=== PATIENT | male | born 1945 | race Caucasian/White ===

== ENCOUNTER → 2020-05-18 14:01 | Outpatient (BNVA) | payer MEDICARE, SELFPAY | PROVIDERS: PCP Internal Medicine; Referring Provider Internal Medicine; Visit Provider Internal Medicine | DX: J44.9 Chronic obstructive pulmonary disease, unspecified (principal); R63.5 Abnormal weight gain; R06.89 Other abnormalities of breathing; Z79.899 Other long term (current) drug therapy | CPT/HCPCS: 99213 ==

== ENCOUNTER 2020-06-04 16:56 | Inpatient (IN) | payer MEDICARE, SELFPAY ==
--- NOTE | 2020-06-04 17:02 | ECG_ITS ---
Test Reason : SOB Blood Pressure : / mmHG Vent. Rate : 085 BPM Atrial Rate : 085 BPM P-R Int : 134 ms QRS Dur : 092 ms QT Int : 388 ms P-R-T Axes : 046 003 023 degrees QTc Int : 461 ms Normal sinus rhythm Left axis deviation Otherwise normal ECG No significant changes seen Referred By: Yosef Maxwell Electronically Signed By:DIEGO MERCADO MD
--- NOTE | 2020-06-04 17:05 | XR_ITS ---
EXAMINATION: XR CHEST CLINICAL INFORMATION: Shortness of breath COMPARISON: 10/13/2016 TECHNIQUE: Frontal view of the chest was obtained. FINDINGS: There are new diffuse pulmonary infiltrates present right significantly greater than left. Findings are consistent with multifocal pneumonia. The heart size is mildly enlarged. No pleural effusions are seen. No gross CHF. XR/XR chest 1V IMPRESSION: Multifocal pneumonia, right greater than left
--- NOTE | 2020-06-04 17:11 | ED.SOB ---
HPI - SOB/Dyspnea General Chief Complaint: Dyspnea Stated Complaint: shortness of breath Time Seen by Provider: 06/04/20 17:02 Source: EMS Mode of arrival: EMS Limitations: no limitations History of Present Illness HPI Narrative: Pleasant 74-year-old male with past medical history significant for asthma / COPD /hypoventilation and not on home O2 history of intubation the past presenting via EMS with complaint of shortness of breath for past couple of days onset after a mild cold and has symptoms have been progressively getting worse. Patient upon arrival pulse ox with good plan of 42% on room air. Has shortness of breath. MD elicited complaint: shortness of breath Pertinent past history: COPD and asthma Onset (ago): day(s) Context: recent illness Timing: constant Severity: severe Exacerbating factors: nothing Relieving factors: nothing Known history of: COPD and asthma Treatment prior to arrival: none Related Data Home Medications Medication Instructions Recorded Confirmed albuterol sulfate 2.5 mg INHALATION Q4-6H PRN 05/18/20 06/04/20 enalapril maleate 10 mg tablet 10 mg PO DAILY 05/18/20 06/04/20 fluticasone 500 mcg-salmeterol 50 1 inh INHALATION BID 05/18/20 06/04/20 mcg/dose blistr powdr for inhalation theophylline 300 mg 300 mg PO Q12H cap 05/18/20 06/04/20 capsule,extended release 24 hr Allergies Allergy/AdvReac Type Severity Reaction Status Date / Time No Known Allergies Allergy Verified 06/04/20 17:24 Review of Systems Review of Systems: Constitutional: No Weight loss, No Fever, + Chills, No Night Sweats, No Fatigue, No Malaise ENT/Mouth: No Hearing loss, No Ear Pain, + Nasal Congestion, No Sinus Pain, No Hoarseness, No sore throat, + Rhinorrhea, No Swallowing Difficulty Eyes: No Eye Pain, No Swelling, No Redness, No Foreign Body, No Discharge, No Vision Changes Cardiovascular: No Chest Pain, + SOB, + Dyspnea on Exertion, No Orthopnea, No Edema, No Palpitations Respiratory: + Cough, No Sputum, + Wheezing, No Smoke Exposure, No Dyspnea Gastrointestinal: No Nausea, No Vomiting, No Diarrhea, No Constipation, No abdominal Pain, No Hematochezia, No Melena Genitourinary: no irregular bleeding, No Dysuria, No Urinary Frequency, No Hematuria, No Urinary Incontinence, No Urgency, No Flank Pain, No Urinary Flow Changes, No Hesitancy Musculoskeletal: No joint pain, No Myalgias, No Joint Swelling Skin: No Skin Lesions, No rash Neuro: No Weakness, No Numbness, No Paresthesias, No Loss of Consciousness, No Dizziness, No Headache Psych: No Anxiety/Panic, No Social Issues Heme/Lymph: No Bruising, No Bleeding,No Lymphadenopathy Endocrine: No Polyuria, No Polydipsia, No Temperature Intolerance Yes all other systems are reviewed and are negative [facility] Past Medical History Attestation statement: The following information was validated with the patient. Medical History (Updated 06/04/20 @ 19:52 by Yosef Maxwell NP) COPD (chronic obstructive pulmonary disease) Hypoventilation Social History Social History Alcohol intake: never Smoked in Last 30 Days: No Use of substances other than those prescribed or required for medical reasons: No Advance Directives: No Advance Directives Information Provided: Yes Physical Exam Vital Signs: Vital Signs: Vital Signs Temp Pulse Resp BP Pulse Ox 06/04/20 19:32 99.6 F 76 24 H 122/57 L 94 06/04/20 17:48 88 24 H 139/63 95 06/04/20 17:21 100.9 F H 86 24 H 98 Body Mass Index 28.2 Reviewed Const: General: acute distress (Resp ) Nutritional Appearance: average body habitus Orientation/consciousness: patient oriented x3 HENMT: Head: Yes normal to inspection Ears: hearing grossly normal bilaterally Eyes: General: appearance normal, both eyes and all related structures Visual Rendon: normal visual rendon by confrontation Neck: Neck: Yes normal visual inspection, No positive Brudzinski's sign, No positive Kernig's sign and No tender Thyroid: Thyroid normal Chest: Chest palpation & inspection: normal inspection of the chest Resp: Effort & Inspection: respiratory distress ( Decreased breath sounds diffusely) Auscultation: wheezes Cardio: Jugular venous distension: no JVD GI: Inspection: Yes normal to inspection Percussion: Yes normal to percussion Auscultation: normal bowel sounds : General: Yes no CVA tenderness Back/Spine/Pelvis: Back: no CVA tenderness Skin: General skin exam: no rashes or lesions noted Neuro: General: patient oriented x3 Extrem: General: Yes normal to inspection Course Course Course Narrative: 1701 call O2 bedside upon EMS arrival patient pulse ox 46% on room air states was having slight difficulty breathing visually does not appear in any acute distress. Patient medially placed on non-rebreather will to pulse oximeter reading 100% now. RT page. Moved to isolation room concern for COVID-19. At this time will go ahead and treat with MDI, IV Solu-Medrol and gradual fluids will check labs including lactic acid, blood cultures, cardiac enzymes, EKG chest x-ray. Sepsis screening done does have history of COPD. 1715 Lab/blood cultures done. RT at bedside Empiric dose of Levaquin. Resting comfortably speaking in full sentences this time. 1830 + COVID, CXR multifocal infiltrate. Resting comfortably. 1840 Has been resting comfortably, 99-100% on non-rebreather, attempted Venti mask does drop to 89-90%. He reports he feels comfortable no excessive work of breathing. respiratory rate 20 2-24. Case discussed with ICU clint Elizalde for tele. Page placed to Hospitalist. [address] Carmichael Hospitalist for admit. MDM - SOB/Dyspnea Medical Records Attestation: I reviewed the patient's medical records. Medical records narrative: outpatient visit note from 05/16/2020 Lab Data Attestation: I reviewed the patient's lab results. Result diagrams: 06/04/20 17:18 06/04/20 17:18 Labs: Lab Results 06/04/20 06/04/20 06/04/20 Range/Units 17:18 17:18 17:18 WBC 12.2 H (4.8-10.8) X10*3/uL RBC 4.34 L (4.60-5.80) X10*6/uL Hgb 12.9 L (14.0-18.0) g/dl Hct 39.8 L (42-52) % MCV 91.7 (80-98) fL MCH 29.7 (27.0-33.0) pg MCHC 32.4 (31.0-36.0) g/dl RDW 13.0 (11.0-16.0) % Plt Count 312 (160-400) X10*3/uL MPV 11.8 (9.4-12.4) fL Immature Gran % (Auto) 2.2 H (0.0-0.4) % Neut % (Auto) 89.7 H (45-73) % Lymph % (Auto) 5.1 L (20-40) % Walsh % (Auto) 2.8 (2-11) % Eos % (Auto) 0.0 (0-4) % Baso % (Auto) 0.2 (0-2) % Lymph # (Auto) 0.6 L (1.2-4.9) X10*3/uL Walsh # (Auto) 0.3 (0.1-1.2) X10*3/uL Eos # (Auto) 0.0 (0.0-0.4) X10*3/uL Baso # (Auto) 0.0 (0.0-0.2) X10*3/uL Abs Immat Gran (auto) 0.27 H (0.00-0.03) X10*3/uL Absolute Neuts (auto) 10.9 H (2.0-8.3) X10*3/uL Absolute Nucleated RBC 0.000 (0.0-0.012) X10*3/uL Nucleated RBC % (auto) 0.0 (0.0-0.2) /100WBC Smear Tech's Comments VERIFIED PT 17.5 H (10.8-13.0) SEC INR 1.5 H (0.9-1.1) APTT 33.4 (24.1-38.0) SEC D-Dimer 2600 NG/ML ABG pH (7.35-7.45) ABG pCO2 (32-45) mmhg ABG pO2 (83-108) mmhg ABG HCO3 (22-26) mmol/l ABG O2 Saturation % ABG Base Excess Oxygen Given Sodium 136 (135-145) mmol/L Potassium 4.4 (3.3-5.1) mmol/l Chloride 99 (96-108) mmol/L Carbon Dioxide 25 (22-29) mmol/L Anion Gap 16 (12-20) BUN 39 H (9-16) mg/dL Creatinine 1.22 (0.5-1.4) mg/dL Estim Creat Clear Calc 50.0 Estimated GFR 58 Random Glucose 223 H (60-115) mg/dL Lactic Acid (0.5-2.0) mmol/L Lactic Acid Fup @ 2Hr (0.5-2.0) mmol/L Calcium 7.5 L (8.4-10.2) mg/dL Total Bilirubin 0.9 (0.0-1.0) mg/dL AST 24 (5-37) U/L ALT 19 (0-40) U/L Alkaline Phosphatase 100 (39-117) U/L Lactate Dehydrogenase 498 H (118-273) U/L Troponin I High Sens (<3.5-35.0) ng/L B-Natriuretic Peptide (<100) pg/mL Total Protein 6.4 L (6.5-8.0) g/dL Albumin 3.3 L (3.5-5.0) g/dL Procalcitonin ng/mL Coronavirus (PCR) (Negative) 06/04/20 06/04/20 06/04/20 Range/Units 17:18 17:18 17:18 WBC (4.8-10.8) X10*3/uL RBC (4.60-5.80) X10*6/uL Hgb (14.0-18.0) g/dl Hct (42-52) % MCV (80-98) fL MCH (27.0-33.0) pg MCHC (31.0-36.0) g/dl RDW (11.0-16.0) % Plt Count (160-400) X10*3/uL MPV (9.4-12.4) fL Immature Gran % (Auto) (0.0-0.4) % Neut % (Auto) (45-73) % Lymph % (Auto) (20-40) % Walsh % (Auto) (2-11) % Eos % (Auto) (0-4) % Baso % (Auto) (0-2) % Lymph # (Auto) (1.2-4.9) X10*3/uL Walsh # (Auto) (0.1-1.2) X10*3/uL Eos # (Auto) (0.0-0.4) X10*3/uL Baso # (Auto) (0.0-0.2) X10*3/uL Abs Immat Gran (auto) (0.00-0.03) X10*3/uL Absolute Neuts (auto) (2.0-8.3) X10*3/uL Absolute Nucleated RBC (0.0-0.012) X10*3/uL Nucleated RBC % (auto) (0.0-0.2) /100WBC Smear Tech's Comments PT (10.8-13.0) SEC INR (0.9-1.1) APTT (24.1-38.0) SEC D-Dimer NG/ML ABG pH (7.35-7.45) ABG pCO2 (32-45) mmhg ABG pO2 (83-108) mmhg ABG HCO3 (22-26) mmol/l ABG O2 Saturation % ABG Base Excess Oxygen Given Sodium (135-145) mmol/L Potassium (3.3-5.1) mmol/l Chloride (96-108) mmol/L Carbon Dioxide (22-29) mmol/L Anion Gap (12-20) BUN (9-16) mg/dL Creatinine (0.5-1.4) mg/dL Estim Creat Clear Calc Estimated GFR Random Glucose (60-115) mg/dL Lactic Acid 3.4 H* (0.5-2.0) mmol/L Lactic Acid Fup @ 2Hr (0.5-2.0) mmol/L Calcium (8.4-10.2) mg/dL Total Bilirubin (0.0-1.0) mg/dL AST (5-37) U/L ALT (0-40) U/L Alkaline Phosphatase (39-117) U/L Lactate Dehydrogenase (118-273) U/L Troponin I High Sens 16.9 (<3.5-35.0) ng/L B-Natriuretic Peptide 59 (<100) pg/mL Total Protein (6.5-8.0) g/dL Albumin (3.5-5.0) g/dL Procalcitonin ng/mL Coronavirus (PCR) POSITIVE A (Negative) 06/04/20 06/04/20 06/04/20 Range/Units 17:22 17:47 19:37 WBC (4.8-10.8) X10*3/uL RBC (4.60-5.80) X10*6/uL Hgb (14.0-18.0) g/dl Hct (42-52) % MCV (80-98) fL MCH (27.0-33.0) pg MCHC (31.0-36.0) g/dl RDW (11.0-16.0) % Plt Count (160-400) X10*3/uL MPV (9.4-12.4) fL Immature Gran % (Auto) (0.0-0.4) % Neut % (Auto) (45-73) % Lymph % (Auto) (20-40) % Walsh % (Auto) (2-11) % Eos % (Auto) (0-4) % Baso % (Auto) (0-2) % Lymph # (Auto) (1.2-4.9) X10*3/uL Walsh # (Auto) (0.1-1.2) X10*3/uL Eos # (Auto) (0.0-0.4) X10*3/uL Baso # (Auto) (0.0-0.2) X10*3/uL Abs Immat Gran (auto) (0.00-0.03) X10*3/uL Absolute Neuts (auto) (2.0-8.3) X10*3/uL Absolute Nucleated RBC (0.0-0.012) X10*3/uL Nucleated RBC % (auto) (0.0-0.2) /100WBC Smear Tech's Comments PT (10.8-13.0) SEC INR (0.9-1.1) APTT (24.1-38.0) SEC D-Dimer NG/ML ABG pH 7.42 (7.35-7.45) ABG pCO2 38 (32-45) mmhg ABG pO2 105 (83-108) mmhg ABG HCO3 23 (22-26) mmol/l ABG O2 Saturation 97.3 % ABG Base Excess -0.6 Oxygen Given 6 L Sodium (135-145) mmol/L Potassium (3.3-5.1) mmol/l Chloride (96-108) mmol/L Carbon Dioxide (22-29) mmol/L Anion Gap (12-20) BUN (9-16) mg/dL Creatinine (0.5-1.4) mg/dL Estim Creat Clear Calc Estimated GFR Random Glucose (60-115) mg/dL Lactic Acid (0.5-2.0) mmol/L Lactic Acid Fup @ 2Hr 1.3 (0.5-2.0) mmol/L Calcium (8.4-10.2) mg/dL Total Bilirubin (0.0-1.0) mg/dL AST (5-37) U/L ALT (0-40) U/L Alkaline Phosphatase (39-117) U/L Lactate Dehydrogenase (118-273) U/L Troponin I High Sens (<3.5-35.0) ng/L B-Natriuretic Peptide (<100) pg/mL Total Protein (6.5-8.0) g/dL Albumin (3.5-5.0) g/dL Procalcitonin 6.09 ng/mL Coronavirus (PCR) (Negative) Imaging Data CT scan - chest: Radiologist's impression: Rodriguez,Ghassan 74 M 1945 [place] [address] [address] Scan Report Signed Patient: Carolyne RodriguezR#: [id number] : 5Acct:[id number] Age/Sex: 74 / MADM Date: 06/04/20 Loc: .ED Attending Dr: Ordering Physician: Yosef Maxwell NP Date of Service: 06/04/20 Procedure(s): CT angio chest PE protocol Accession Number(s): [id number] cc: Yosef Maxwell NP~ EXAMINATION: CT ANGIOGRAM OF THE CHEST WITH AND WITHOUT CONTRAST (CT PULMONARY ANGIOGRAM FOR PE) CLINICAL INFORMATION: Shortness of breath. Positive d-dimer. COMPARISON: Chest radiograph from 06/04/2020. CT chest from 08/06/2016. TECHNIQUE: Prior to contrast administration, noncontrast localization images were obtained. Subsequently, multidetector volumetric imaging was performed from the thoracic inlet to below the diaphragms following the administration of 70 mLOmnipaque 350 intravenous contrast. No contrast reaction reported. Sagittal, coronal, and MIP oblique sagittal reformatted images were obtained on the CT workstation, uploaded to PACS, and reviewed. This CT examination was performed using dose optimization techniques as appropriate, variously including the following: *Automated exposure control *Adjustment of mA and/or kV according to patient size (this includes techniques or standardized protocols for targeted exams where dose is matched to indication/reason for exam; i.e. extremities or head) *Use of iterative reconstruction technique Total exam dose-length product 322 mGy-cm FINDINGS: QUALITY OF STUDY/CONTRAST BOLUS: Satisfactory. PULMONARY ARTERIES: No central or segmental pulmonary emboli. THORACIC AORTA: The thoracic aorta is of normal contour and caliber with moderate calcific atherosclerotic disease. No evidence for dissection. LUNG: Extensive patchy groundglass opacification throughout the entirety of the right lung and preferentially within the mid and lower aspects of the left lung. There is preferential consolidation within the periphery of the lungs and the lung bases. Mild interlobular septal thickening. Moderate. Trace bilateral pleural effusions. No pneumothorax. The airways largely remain patent. MEDIASTINUM: Global cardiac enlargement. Coronary artery calcifications. Aortic valve calcifications. No pericardial effusion. No hilar or mediastinal lymphadenopathy. No evidence of septal bowing or right heart strain. CHEST WALL/AXILLA: No axillary or internal mammary lymphadenopathy. OSSEOUS STRUCTURES: No acute or suspicious osseous abnormality. 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 UPPER ABDOMEN: There is a 1 cm simple cyst in the interpolar region of the right kidney. Otherwise, no demonstrated significant abnormalities of the partially visualized upper abdomen. No reflux of contrast into the hepatic veins to suggest elevated right heart pressures. CT/CT angio chest PE protocol IMPRESSION: 1. No evidence for pulmonary embolism. 2. Extensive groundglass opacification throughout the lungs. There is preferential consolidation within the periphery and basilar lungs. Findings are nonspecific but suggestive of an infectious/inflammatory process and/or pulmonary edema. 3. Global cardiomegaly. VTE: negative Dictated By:BRANDT COTO DO Signed By:<Electronically signed by BRANDT COTO DO in OV>06/04/202000 DD/ 08 TD/TT: Electronic Equipment Installer: LUCIANA Critical Care Time Critical Care Time Critical Care Time: Yes Total Critical Care Time: 65 Attestation: patient in acute respiratory failure evaluated directly on arrival to the ED required immediate intervention to prevent further deterioration/cardiopulmonary arrest. Multiple visits to bedside including breathing treatments, re-evaluation, interpretation of ABG and coordination of care with intensive care unit/hospitalist. Discharge Plan Discharge Clinical Impression: Hypoventilation, COVID-19 COPD (chronic obstructive pulmonary disease) Qualifiers: COPD type: COPD with acute exacerbation Qualified Code(s): J44.1 - Chronic obstructive pulmonary disease with (acute) exacerbation Respiratory failure, unspecified with hypoxia Qualifiers: Chronicity: acute Qualified Code(s): J96.01 - Acute respiratory failure with hypoxia Prescriptions: No Action enalapril maleate 10 mg tablet 10 mg PO DAILY RF: 0 fluticasone propion-salmeterol [Advair Diskus] 500-50 mcg/dose blister with device 1 inh inhalation BID RF: 0 John-24 300 mg capsule,extended release 24hr 300 mg PO Q12H RF: 0 albuterol sulfate 2.5 mg /3 mL (0.083 %) solution for nebulization 2.5 mg inhalation Q4-6H PRN (Reason: Wheezing) RF: 0
[2020-06-04 17:16] VITALS: BMI 25.1
[2020-06-04 17:21] VITALS: PULSE 86; RESP 24; TEMP 38.3; O2SAT 98; BMI 28.2
[2020-06-04] MEDS: levoFLOXacin/D5W 750 MG/150 ML PIGGYBACK 100 MG IV (17:26)
[2020-06-04] MEDS: 0.9 % Sodium Chloride 500 ML 1000 ML IV (17:26)
[2020-06-04 17:28] VITALS: O2SAT 87
[2020-06-04 17:28] LABS: Basophils Percent Auto 0.2 % (0-2); Hematocrit 39.8 % (42-52); Hemoglobin 12.9 g/dl (14.0-18.0); Imm Gran Abs Auto 0.27 X10*3/uL (0.00-0.03); Imm Gran Pct Auto 2.2 % (0.0-0.4); Lymphocytes Absolute Auto 0.6 X10*3/uL (1.2-4.9); Lymphocytes Percent Auto 5.1 % (20-40); MANUAL DIFF FLAG SCAN; Mean Corpuscular HGB Conc 32.4 g/dl (31.0-36.0); Mean Corpuscular Hemoglobin 29.7 pg (27.0-33.0); Mean Corpuscular Volume 91.7 fL (80-98); Mean Platelet Volume 11.8 fL (9.4-12.4); Monocytes Absolute Auto 0.3 X10*3/uL (0.1-1.2); Monocytes Percent Auto 2.8 % (2-11); Neutrophils Absolute Auto 10.9 X10*3/uL (2.0-8.3); Neutrophils Percent Auto 89.7 % (45-73); Platelet Count 312 X10*3/uL (160-400); Red Blood Count 4.34 X10*6/uL (4.60-5.80); SCAN SMEAR FLAG 1; White Blood Count 12.2 X10*3/uL (4.8-10.8)
[2020-06-04 17:35] LABS: INTERNATIONAL NORM RATIO 1.5 (0.9-1.1); Prothrombin Time 17.5 SEC (10.8-13.0)
[2020-06-04 17:38] LABS: Partial Thromboplastin Time 33.4 SEC (24.1-38.0)
[2020-06-04] MEDS: Acetaminophen 325 MG TABLET 975 MG PO (17:44)
[2020-06-04] MEDS: methylPREDNISolone Sod Succ/PF 125 MG/2 ML VIAL IVPUSH (17:44)
[2020-06-04 17:47] LABS: D Dimer 2600 NG/ML
[2020-06-04 17:48] VITALS: BP 139/63; PULSE 88; RESP 24; O2SAT 95
[2020-06-04 17:49] LABS: SLIDE REVIEW VERIFIED
[2020-06-04 17:55] LABS: Alanine Aminotransferase 19 U/L (0-40); Albumin Level 3.3 g/dL (3.5-5.0); Alkaline Phosphatase 100 U/L (39-117); Anion Gap 16 (12-20); Aspartate Amino Transferase 24 U/L (5-37); Bilirubin Total 0.9 mg/dL (0.0-1.0); Blood Urea Nitrogen 39 mg/dL (9-16); Calcium 7.5 mg/dL (8.4-10.2); Carbon Dioxide 25 mmol/L (22-29); Chloride 99 mmol/L (96-108); Estimated Glomerular Filt Rate 58; Glucose Random 223 mg/dL (60-115); Potassium 4.4 mmol/l (3.3-5.1); Sodium 136 mmol/L (135-145); Total Protein 6.4 g/dL (6.5-8.0)
[2020-06-04 17:57] LABS: Lactic Acid 3.4 mmol/L (0.5-2.0)
[2020-06-04 17:58] LABS: Pt Ventilation O2% 6 L
[2020-06-04 18:00] LABS: B Type Natriuretic Peptide 59 pg/mL (<100); Troponin-I High Sensitivity 16.9 ng/L (<3.5-35.0)
[2020-06-04 18:03] LABS: ABG PCO2 38 mmhg (32-45); Base Excess ABG -0.6; HCO3 ABG 23 mmol/l (22-26); Oxygen Saturation ABG 97.3 %; PO2 ABG 105 mmhg (83-108); pH ABG 7.42 (7.35-7.45)
--- NOTE | 2020-06-04 18:09 | CT_ITS ---
EXAMINATION: CT ANGIOGRAM OF THE CHEST WITH AND WITHOUT CONTRAST (CT PULMONARY ANGIOGRAM FOR PE) CLINICAL INFORMATION: Shortness of breath. Positive d-dimer. COMPARISON: Chest radiograph from 06/04/2020. CT chest from 08/06/2016. TECHNIQUE: Prior to contrast administration, noncontrast localization images were obtained. Subsequently, multidetector volumetric imaging was performed from the thoracic inlet to below the diaphragms following the administration of 70 mLOmnipaque 350 intravenous contrast. No contrast reaction reported. Sagittal, coronal, and MIP oblique sagittal reformatted images were obtained on the CT workstation, uploaded to PACS, and reviewed. This CT examination was performed using dose optimization techniques as appropriate, variously including the following: *Automated exposure control *Adjustment of mA and/or kV according to patient size (this includes techniques or standardized protocols for targeted exams where dose is matched to indication/reason for exam; i.e. extremities or head) *Use of iterative reconstruction technique Total exam dose-length product 322 mGy-cm FINDINGS: QUALITY OF STUDY/CONTRAST BOLUS: Satisfactory. PULMONARY ARTERIES: No central or segmental pulmonary emboli. THORACIC AORTA: The thoracic aorta is of normal contour and caliber with moderate calcific atherosclerotic disease. No evidence for dissection. LUNG: Extensive patchy groundglass opacification throughout the entirety of the right lung and preferentially within the mid and lower aspects of the left lung. There is preferential consolidation within the periphery of the lungs and the lung bases. Mild interlobular septal thickening. Moderate. Trace bilateral pleural effusions. No pneumothorax. The airways largely remain patent. MEDIASTINUM: Global cardiac enlargement. Coronary artery calcifications. Aortic valve calcifications. No pericardial effusion. No hilar or mediastinal lymphadenopathy. No evidence of septal bowing or right heart strain. CHEST WALL/AXILLA: No axillary or internal mammary lymphadenopathy. OSSEOUS STRUCTURES: No acute or suspicious osseous abnormality. 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 UPPER ABDOMEN: There is a 1 cm simple cyst in the interpolar region of the right kidney. Otherwise, no demonstrated significant abnormalities of the partially visualized upper abdomen. No reflux of contrast into the hepatic veins to suggest elevated right heart pressures. CT/CT angio chest PE protocol IMPRESSION: 1. No evidence for pulmonary embolism. 2. Extensive groundglass opacification throughout the lungs. There is preferential consolidation within the periphery and basilar lungs. Findings are nonspecific but suggestive of an infectious/inflammatory process and/or pulmonary edema. 3. Global cardiomegaly. VTE: negative
[2020-06-04 18:40] LABS: SARS COV2 PCR INHOUSE POSITIVE (Negative)
--- NOTE | 2020-06-04 18:40 | PC.NURSE ---
Pt unable to maintain o2 on 55% venti mask, provider aware and rt called. plan for bipap.?
[2020-06-04 18:42] LABS: Lactate Dehydrogenase 498 U/L (118-273)
[2020-06-04 19:06] LABS: Procalcitonin 6.09 ng/mL
--- NOTE | 2020-06-04 19:13 | PC.NURSE ---
pt maintaing o2 well on non rebreather, denies needs or complaints. awaiting cta results.
[2020-06-04] MEDS: iohexoL 350 MG/ML 100 ML INFUS..BTL IV (19:15)
[2020-06-04 19:23] LABS: Reflex Lactate? Lactic Acid Added
[2020-06-04 19:32] VITALS: BP 122/57; PULSE 76; RESP 24; TEMP 37.6; O2SAT 94
[2020-06-04 20:00] VITALS: BP 127/76; PULSE 89; RESP 16; TEMP 37.1; O2SAT 96
[2020-06-04 20:01] LABS: ~Lactic Acid-LAB USE ONLY 1.3 mmol/L (0.5-2.0)
--- NOTE | 2020-06-04 20:09 | P.HPIM_ITS ---
History of Present Illness Date of Service: 06/04/20 Chief Complaint: shortness of breath this is a 74-year-old male with past medical history of COPD who presents to the hospital with complaints of shortness of breath. Patient reports that his symptoms started 2 days ago, associated with wheezing significant cough sputum production. Patient also reports that he felt feverish but did not check his temperature. he is also complaining of loss of appetite. He has no sick contacts or recent travel. He denies any abdominal pain, nausea or vomiting, no diarrhea constipation, no urinary symptoms, no lower extremity edema, no orthopnea or PND. No headache or change in vision. No weakness or tingling or numbness. On arrival to the ED patient was found to be hypoxic with an O2 level of 46%. He was also tachypneic with a respiratory rate of 24. currently on non- rebreather satting 96%. Labs are significant for WBC count of 12.2, ABG showing pH of 7.42, CO2 of 38, BUN of 39, creatinine of 1.2 to his baseline around 0.9, lactic acid of 3.4, LDH of 498, COVID-19 positive, chest x-ray shows bilateral multifocal pneumonia, CT angiogram negative for PE, shows extensive ground-glass opacification throughout the lungs past medical history: COPD, hypertension surgical history: denies family history: Denies social history: Comes from home, former smoker, denies alcohol use at this time, and no drug use Review of Systems Review of Systems: Yes all other systems are reviewed and are negative [facility] Medical History (Updated 06/04/20 @ 20:46 by France Carmichael MD) COPD (chronic obstructive pulmonary disease) Hypertension Hypoventilation Social History Alcohol intake: never Smoked in Last 30 Days: No Use of substances other than those prescribed or required for medical reasons: No Advance Directives: No Advance Directives Information Provided: Yes Meds Allergies Allergy/AdvReac Type Severity Reaction Status Date / Time No Known Allergies Allergy Verified 06/04/20 17:24 Home Medications Medication Instructions Recorded Confirmed Type albuterol sulfate 2.5 mg INHALATION Q4-6H PRN 05/18/20 06/04/20 History enalapril maleate 10 mg tablet 10 mg PO DAILY 05/18/20 06/04/20 History fluticasone 500 mcg-salmeterol 50 1 inh INHALATION BID 05/18/20 06/04/20 History mcg/dose blistr powdr for inhalation theophylline 300 mg 300 mg PO Q12H cap 05/18/20 06/04/20 History capsule,extended release 24 hr Physical Exam Vital Signs and Narrative: Vital Signs: Last Vital Signs Temp 99.6 F 06/04/20 19:32 Pulse 76 06/04/20 19:32 Resp 24 H 06/04/20 19:32 BP 122/57 L 06/04/20 19:32 Pulse Ox 94 06/04/20 19:32 Body Mass Index 28.2 Const: General: cooperative and no acute distress Orientation/consciousness: patient oriented x3 Eyes: General: appearance normal, both eyes and all related structures Pupils: Equal, round and reactive pupils present Resp: Other: patient currently on respiratory non-rebreather, satting 98%, appears comfortable, and able to complete sentences without use of accessory muscles. Effort & Inspection: normal respiratory effort and able to speak in complete sentences Auscultation: rhonchi and wheezes Cardio: Rate: regular rate Rhythm: regular rhythm GI: Palpation (GI): Soft to palpation Auscultation: normal bowel sounds Skin: General skin exam: no rashes or lesions noted Neuro: General: patient oriented x3 Cranial nerves: Yes Equal, round and reactive pupils present Cognition (Neuro): normal cognition Extrem: General: Yes normal to inspection and Yes no pedal edema Results Labs Labs: Laboratory Tests 06/04/20 06/04/20 06/04/20 17:18 17:18 17:18 WBC 12.2 H RBC 4.34 L Hgb 12.9 L Hct 39.8 L MCV 91.7 MCH 29.7 MCHC 32.4 RDW 13.0 Plt Count 312 MPV 11.8 Immature Gran % (Auto) 2.2 H Neut % (Auto) 89.7 H Lymph % (Auto) 5.1 L [place] % (Auto) 2.8 Eos % (Auto) 0.0 Baso % (Auto) 0.2 Lymph # (Auto) 0.6 L [place] # (Auto) 0.3 Eos # (Auto) 0.0 Baso # (Auto) 0.0 Abs Immat Gran (auto) 0.27 H Absolute Neuts (auto) 10.9 H Absolute Nucleated RBC 0.000 Nucleated RBC % (auto) 0.0 Smear Tech's Comments VERIFIED PT 17.5 H INR 1.5 H APTT 33.4 D-Dimer 2600 ABG pH ABG pCO2 ABG pO2 ABG HCO3 ABG O2 Saturation ABG Base Excess Oxygen Given Sodium 136 Potassium 4.4 Chloride 99 Carbon Dioxide 25 Anion Gap 16 BUN 39 H Creatinine 1.22 Estim Creat Clear Calc 50.0 Estimated GFR 58 Random Glucose 223 H Lactic Acid Lactic Acid Fup @ 2Hr Calcium 7.5 L Total Bilirubin 0.9 AST 24 ALT 19 Alkaline Phosphatase 100 Lactate Dehydrogenase 498 H Troponin I High Sens B-Natriuretic Peptide Total Protein 6.4 L Albumin 3.3 L Procalcitonin Coronavirus (PCR) 06/04/20 06/04/20 06/04/20 17:18 17:18 17:18 WBC RBC Hgb Hct MCV MCH MCHC RDW Plt Count MPV Immature Gran % (Auto) Neut % (Auto) Lymph % (Auto) [place] % (Auto) Eos % (Auto) Baso % (Auto) Lymph # (Auto) [place] # (Auto) Eos # (Auto) Baso # (Auto) Abs Immat Gran (auto) Absolute Neuts (auto) Absolute Nucleated RBC Nucleated RBC % (auto) Smear Tech's Comments PT INR APTT D-Dimer ABG pH ABG pCO2 ABG pO2 ABG HCO3 ABG O2 Saturation ABG Base Excess Oxygen Given Sodium Potassium Chloride Carbon Dioxide Anion Gap BUN Creatinine Estim Creat Clear Calc Estimated GFR Random Glucose Lactic Acid 3.4 H* Lactic Acid Fup @ 2Hr Calcium Total Bilirubin AST ALT Alkaline Phosphatase Lactate Dehydrogenase Troponin I High Sens 16.9 B-Natriuretic Peptide 59 Total Protein Albumin Procalcitonin Coronavirus (PCR) POSITIVE A 06/04/20 06/04/20 06/04/20 17:22 17:47 19:37 WBC RBC Hgb Hct MCV MCH MCHC RDW Plt Count MPV Immature Gran % (Auto) Neut % (Auto) Lymph % (Auto) [place] % (Auto) Eos % (Auto) Baso % (Auto) Lymph # (Auto) [place] # (Auto) Eos # (Auto) Baso # (Auto) Abs Immat Gran (auto) Absolute Neuts (auto) Absolute Nucleated RBC Nucleated RBC % (auto) Smear Tech's Comments PT INR APTT D-Dimer ABG pH 7.42 ABG pCO2 38 ABG pO2 105 ABG HCO3 23 ABG O2 Saturation 97.3 ABG Base Excess -0.6 Oxygen Given 6 L Sodium Potassium Chloride Carbon Dioxide Anion Gap BUN Creatinine Estim Creat Clear Calc Estimated GFR Random Glucose Lactic Acid Lactic Acid Fup @ 2Hr 1.3 Calcium Total Bilirubin AST ALT Alkaline Phosphatase Lactate Dehydrogenase Troponin I High Sens B-Natriuretic Peptide Total Protein Albumin Procalcitonin 6.09 Coronavirus (PCR) Assessment and Plan (1) COVID-19: Status: Acute (2) Respiratory failure, unspecified with hypoxia: Qualifiers: Chronicity: acute Qualified Code(s): J96.01 - Acute respiratory failure with hypoxia Status: Acute (3) Hypertension: Status: Acute (4) COPD exacerbation: Status: Acute This is a 74-year-old male with past medical history of hypertension and COPD who presents to the hospital with complaints of dyspnea, wheezing, cough and sputum production. Found to have COVID positive pneumonia. # sepsis - tachycardia, leukocytosis, febrile - most likely secondary to viral sepsis in the setting of COVID-19 pneumonia - has elevated lactic acid which is most likely secondary to the hypoxia - COVID-19 PCR positive Plan: - Management of COVID-19 as below - IV fluids - follow blood cultures # Acute hypoxic respiratory failure - apparently was satting 46% on arrival to the ED although otherwise hemodynamically stable. - Most likely secondary to COVID-19 pneumonia complicated by underlying COPD - ABG within normal range with no CO2 retention - currently on non-rebreather satting 96-98% plan: - Continue O2 supplement - given hypoxia, COPD, and high oxygen requirement will start him on Decadron 6 mg daily - monitor respiratory status - if worsens, consider an does severe / convalescent plasma # COVID-19 pneumonia - Cxr showing multifocal PNA - hypoxic, tachycardic, has leukocytosis and fever plan: - Will start patient on Decadron 6 mg daily, Ventolin p.r.n. - monitor respiratory status # lactic acidosis - most likely secondary to hypoxic respiratory failure - no hypotension - will start on IV fluids and trend lactic acid # COPD exacerbation - has cough, sputum production, dyspnea - will start him on ventolin p.r.n., and Decadron - O2 as required # hypertension - stable - continue enalapril DVT prophylaxis: Lovenox
[2020-06-04 22:48] VITALS: BP 148/70; PULSE 77; RESP 18; TEMP 36.3; O2SAT 90
[2020-06-05] VITALS (11 sets, daily range): BP systolic 132–144; BP diastolic 64–76; PULSE 71–100; RESP 18–20; TEMP 36.3–36.9; O2SAT 89–100
[2020-06-05] MEDS: Lactated Ringers 1,000 ML 100 ML IVCONT ×2 (00:16→09:17)
[2020-06-05] MEDS: Enoxaparin Sodium 40 MG/0.4 ML SYRINGE SUBCUT ×2 (00:16→21:57)
[2020-06-05] MEDS: Theophylline Anhydrous ER 300 MG TAB.ER.12H PO ×3 (00:16→20:04)
[2020-06-05] MEDS: 0.9 % Sodium Chloride Flush 3 ML SYRINGE IVFLUSH ×2 (00:17→20:04)
[2020-06-05 07:05] LABS: Basophils Percent Auto 0.1 % (0-2); Hematocrit 36.1 % (42-52); Hemoglobin 11.8 g/dl (14.0-18.0); Imm Gran Abs Auto 0.13 X10*3/uL (0.00-0.03); Imm Gran Pct Auto 1.7 % (0.0-0.4); Lymphocytes Absolute Auto 0.5 X10*3/uL (1.2-4.9); Lymphocytes Percent Auto 6.9 % (20-40); MANUAL DIFF FLAG SCAN; Mean Corpuscular HGB Conc 32.7 g/dl (31.0-36.0); Mean Corpuscular Hemoglobin 29.9 pg (27.0-33.0); Mean Corpuscular Volume 91.6 fL (80-98); Monocytes Absolute Auto 0.2 X10*3/uL (0.1-1.2); Monocytes Percent Auto 2.1 % (2-11); Neutrophils Absolute Auto 6.9 X10*3/uL (2.0-8.3); Neutrophils Percent Auto 89.2 % (45-73); Platelet Count 268 X10*3/uL (160-400); Red Blood Count 3.94 X10*6/uL (4.60-5.80); SCAN SMEAR FLAG 1; White Blood Count 7.7 X10*3/uL (4.8-10.8)
[2020-06-05 07:29] LABS: Anion Gap 14 (12-20); Blood Urea Nitrogen 33 mg/dL (9-16); Calcium 7.1 mg/dL (8.4-10.2); Carbon Dioxide 26 mmol/L (22-29); Chloride 101 mmol/L (96-108); Creatinine Clr Calc Pharmacy 73.6; Estimated Glomerular Filt Rate > 60; Glucose Random 273 mg/dL (60-115); Potassium 4.6 mmol/l (3.3-5.1); Sodium 136 mmol/L (135-145)
[2020-06-05 07:32] LABS: SLIDE REVIEW VERIFIED
[2020-06-05] MEDS: Fluticasone/Vilanterol 200/25 BLST.W.DEV 1 PUFF INHALE (07:48)
[2020-06-05] MEDS: Enalapril Maleate 10 MG TABLET PO (09:17)
[2020-06-05] MEDS: dexAMETHasone 6 MG TABLET PO (09:17)
--- NOTE | 2020-06-05 11:39 | P.PNIM_ITS ---
Subjective Subjective Date of Service: 06/05/20 Interval History: Seen in f/u for acute hypoxic respriatory failure due to covid-19. Patient remains very hypoxic and is on non rebreather. He is able to talk in full sentences Review of Systems Gen: + fever Resp: +no + sob, + cough CV: no chest, +WILSON, no leg edema GI: No n/v, no abd pain Neuro: No confusion Physical Exam Vital Signs: Vital Signs: Vital Signs Temp Pulse Resp BP Pulse Ox 06/05/20 11:33 98.5 F 77 18 135/67 93 06/05/20 09:17 100 132/75 06/05/20 08:00 97.7 F 100 18 132/75 92 06/05/20 04:00 97.4 F 74 18 134/64 100 06/05/20 03:49 97.5 F 71 18 134/64 100 06/04/20 22:48 97.4 F 77 18 148/70 H 90 L 06/04/20 20:00 98.8 F 89 16 127/76 96 06/04/20 19:32 99.6 F 76 24 H 122/57 L 94 06/04/20 17:48 88 24 H 139/63 95 06/04/20 17:21 100.9 F H 86 24 H 98 Body Mass Index 28.2 General: AO X 3, no acute distress Resp: normal respiratory effor, no accessory muscle use CVS: S1,S2,RRR GI: +BS, NT, no distention Skin: No rash Neuro: motor grossly intact Psych: appropriate affect Objective Data Current Medications Generic Name Dose Route Start Last Admin Trade Name [place] PRN Reason Stop Dose Admin Acetaminophen 650 mg 06/04/20 23:31 Acetaminophen 325 Mg Tablet PO Q6H PRN Pain, Mild (Pain Scale 1-3) Albuterol Sulfate 2 puff 06/04/20 23:31 Albuterol Sulfate 90 Mcg 8 Gm Inhaler INHALE Q4H PRN Shortness of Breath/Wheezing Dexamethasone 6 mg 06/05/20 09:00 06/05/20 09:17 Dexamethasone 6 Mg Tablet PO 6 mg DAILY TOY Administration Docusate Sodium 100 mg 06/04/20 23:31 Docusate Sodium 100 Mg Capsule PO DAILY PRN Constipation Enalapril Maleate 10 mg 06/05/20 09:00 06/05/20 09:17 Enalapril Maleate 10 Mg Tablet PO 10 mg DAILY TOY Administration Protocol Enoxaparin Sodium 40 mg 06/05/20 00:00 06/05/20 00:16 Enoxaparin Sodium 40 Mg/0.4 Ml Syringe SUBCUT 40 mg Q24H TOY Administration Fluticasone/Vilanterol 1 puff 06/05/20 08:00 06/05/20 07:48 Fluticasone/Vilanterol 200/25 Blst.W.Dev INHALE 1 puff RDAILY TOY Administration Lactated Ringer's 1,000 mls @ 100 mls/hr 06/04/20 23:31 06/05/20 09:17 Lr IVCONT 100 mls/hr .Q10H TOY Administration Ondansetron HCl 4 mg 06/04/20 23:31 Ondansetron Hcl 4 Mg/2 Ml Vial IVPUSH Q8H PRN Nausea and Vomiting Pharmacy Consult 1 each 06/04/20 19:07 Consult Rx Perform Med Rec MISCELLANE ONCE PRN Consult order Sodium Chloride 3 ml 06/05/20 00:00 06/05/20 09:25 0.9 % Sodium Chloride Flush 3 Ml Syringe IVFLUSH Not Given QSHIFT TOY Theophylline 300 mg 06/04/20 23:45 06/05/20 09:17 Theophylline Anhydrous Er 300 Mg Tab.Er.12h PO 300 mg BID TOY Administration Labs CBC & Chem 7: 06/05/20 06:24 06/05/20 06:24 Assessment and Plan (1) COVID-19: Status: Acute (2) Respiratory failure, unspecified with hypoxia: Status: Acute (3) COPD exacerbation: Status: Acute (4) Hypertension: Status: Acute Assessment and Plan: 74-year-old male with past medical history of hypertension and COPD who presents to the hospital with complaints of dyspnea, wheezing, cough and sputum production. Found to have COVID with pneumonia and acute hypoxic respiratory failure. # sepsis due to covid pneumonia -Treat underlying Pneumonia with Azithro prefered over levaquin -supportive care with Oxygen # Acute hypoxic respiratory failure d/t covid and agravated by underlying copd -continue O2, he is presently on NRB titrate as necessary, ABG yesterday was normal -Treat underlying copd and covid # COVID-19 pneumonia -As above empiric Abx with Azithro preferred over Levaquin -Dexamethosone -Discussed risks and benefit of convalescent plasma with the patient who understand very good [place] and also via biomedical electronics technician and he's agreeable with to try it, conscent obtained -Remdesevir not available -ID consult # lactic acidosis, d/t hypoxia not sepsis. Repeat after hydration # COPD exacerbation - has cough, sputum production, dyspnea - will start him on ventolin p.r.n., and Decadron - O2 as required # hypertension - stable - continue enalapril DVT prophylaxis: Lovenox
[2020-06-05] MEDS: Azithromycin 500 MG in 0.9 % Sodium Chloride 250 ML 125 MG IV (14:04)
--- NOTE | 2020-06-05 14:51 | W.PM.IDCN ---
History of Present Illness Data of Consult Service Date: 06/05/20 Requesting physician: Octavio Aguirre Primary Care Provider: Unknown Physician HPI Reason for consult: shortness of breath She has shortness of breath for two days with wheezing She had oxygen saturation 46% on room air She is on a NRB CT no PE PMFSH Past Medical History Medical History COPD (chronic obstructive pulmonary disease) Hypertension Hypoventilation Social History Social History Household Members: Significant Other Housing: Apartment Alcohol intake: never Smoked in Last 30 Days: No Use of substances other than those prescribed or required for medical reasons: No Currently Displaying Signs/Symptoms of Drug Intoxication Withdrawal: No Have you been hit, kicked, punched, or otherwise hurt by someone within the past year? If so, by whom?: No Do you feel safe in your current relationship?: Yes Is there a partner from a previous relationship who is making you feel unsafe now?: No Are you made to feel afraid or neglected: No Advance Directives: No Advance Directives Information Provided: Yes Do you have thoughts of harming others: None Do you have a plan to hurt others: No Plan Recently lost weight without trying: No service: No Current occupational status: retired [employer] Allergies Allergy/AdvReac Type Severity Reaction Status Date / Time No Known Allergies Allergy Verified 06/04/20 17:24 Home Medications Medication Instructions Recorded Confirmed Type albuterol sulfate 2.5 mg INHALATION Q4-6H PRN 05/18/20 06/04/20 History enalapril maleate 10 mg tablet 10 mg PO DAILY 05/18/20 06/04/20 History fluticasone 500 mcg-salmeterol 50 1 inh INHALATION BID 05/18/20 06/04/20 History mcg/dose blistr powdr for inhalation theophylline 300 mg 300 mg PO Q12H cap 05/18/20 06/04/20 History capsule,extended release 24 hr Physical Exam Vital Signs: Vital Signs: Vital Signs Temp Pulse Resp BP Pulse Ox 06/05/20 11:33 98.5 F 77 18 135/67 93 06/05/20 09:17 100 132/75 06/05/20 08:00 97.7 F 100 18 132/75 92 06/05/20 04:00 97.4 F 74 18 134/64 100 06/05/20 03:49 97.5 F 71 18 134/64 100 06/04/20 22:48 97.4 F 77 18 148/70 H 90 L 06/04/20 20:00 98.8 F 89 16 127/76 96 06/04/20 19:32 99.6 F 76 24 H 122/57 L 94 06/04/20 17:48 88 24 H 139/63 95 06/04/20 17:21 100.9 F H 86 24 H 98 Body Mass Index 28.2 Const: General: cooperative HENMT: Head: Yes normal to inspection Resp: Effort & Inspection: abnormal respiratory pattern and audible wheezes Cardio: Rate: tachycardic Rhythm: regular rhythm GI: Inspection: Yes normal to inspection Extrem: General: Yes normal to inspection Assessment and Plan (1) COVID-19: Problem details: She has COVID sepsis and is on NRB She has no bacterial infection seen at this time She is on Dexamethasone Status: Acute Would continue Dexamethasone Would consider Remdesivir per consult with Pharmacy No further antibiotics at this time (2) COPD exacerbation: Status: Acute Results Labs CBC & Chem 7: 06/06/20 13:09 06/06/20 06:12 Labs: Short CBC 06/04/20 06/05/20 Range/Units 17:18 06:24 WBC 12.2 H 7.7 (4.8-10.8) X10*3/uL Hgb 12.9 L 11.8 L (14.0-18.0) g/dl Hct 39.8 L 36.1 L (42-52) % Plt Count 312 268 (160-400) X10*3/uL BMP 06/04/20 06/05/20 17:18 06:24 Sodium 136 136 Potassium 4.4 4.6 Chloride 99 101 Carbon Dioxide 25 26 BUN 39 H 33 H Creatinine 1.22 0.83 Calcium 7.5 L 7.1 L Liver Function 06/04/20 Range/Units 17:18 Total Bilirubin 0.9 (0.0-1.0) mg/dL AST 24 (5-37) U/L ALT 19 (0-40) U/L Alkaline Phosphatase 100 (39-117) U/L Albumin 3.3 L (3.5-5.0) g/dL
[2020-06-05 21:01] LABS: Alanine Aminotransferase 27 U/L (0-40); Albumin Level 2.9 g/dL (3.5-5.0); Alkaline Phosphatase 107 U/L (39-117); Aspartate Amino Transferase 35 U/L (5-37); Bilirubin Direct 0.3 mg/dL (0.0-0.5); Bilirubin Total 0.6 mg/dL (0.0-1.0); Total Protein 5.7 g/dL (6.5-8.0)
[2020-06-05] MEDS: Remdesivir 200 MG in 0.9 % Sodium Chloride 210 ML 125 MG IV (21:55)
[2020-06-06] VITALS (9 sets, daily range): BP systolic 123–169; BP diastolic 60–80; PULSE 79–94; RESP 16–24; TEMP 36.8–37.2; O2SAT 86–92
[2020-06-06] MEDS: Lactated Ringers 1,000 ML 100 ML IVCONT (03:00)
[2020-06-06] MEDS: Albuterol Sulfate 90 MCG 8 GM INHALER 2 PUFF INHALE ×2 (03:06→21:36)
[2020-06-06 07:13] LABS: Hematocrit 39.2 % (42-52); Hemoglobin 12.6 g/dl (14.0-18.0); Mean Corpuscular HGB Conc 32.1 g/dl (31.0-36.0); Mean Corpuscular Hemoglobin 29.4 pg (27.0-33.0); Mean Corpuscular Volume 91.6 fL (80-98); Mean Platelet Volume 11.9 fL (9.4-12.4); NRBC Pct Auto 0.2 /100WBC (0.0-0.2); Platelet Count 317 X10*3/uL (160-400); Red Blood Count 4.28 X10*6/uL (4.60-5.80); White Blood Count 13.3 X10*3/uL (4.8-10.8)
[2020-06-06 07:23] LABS: Anion Gap 13 (12-20); Blood Urea Nitrogen 26 mg/dL (9-16); Calcium 7.4 mg/dL (8.4-10.2); Carbon Dioxide 27 mmol/L (22-29); Chloride 104 mmol/L (96-108); Creatinine Clr Calc Pharmacy 82.5; Estimated Glomerular Filt Rate > 60; Glucose Random 240 mg/dL (60-115); Potassium 4.5 mmol/l (3.3-5.1); Sodium 139 mmol/L (135-145)
[2020-06-06] MEDS: dexAMETHasone 6 MG TABLET PO (07:38)
[2020-06-06] MEDS: Theophylline Anhydrous ER 300 MG TAB.ER.12H PO (07:38)
[2020-06-06] MEDS: Enalapril Maleate 10 MG TABLET PO (07:39)
[2020-06-06] MEDS: Fluticasone/Vilanterol 200/25 BLST.W.DEV 1 PUFF INHALE (08:31)
[2020-06-06] MEDS: Furosemide 100 MG/10 ML VIAL 60 MG IVPUSH (10:27)
[2020-06-06 12:49] LABS: Pt Ventilation O2% 100%
[2020-06-06 12:57] LABS: ABG PCO2 34 mmhg (32-45); Base Excess ABG 3.5; HCO3 ABG 26 mmol/l (22-26); Oxygen Saturation ABG 92.4 %; PO2 ABG 63 mmhg (83-108)
[2020-06-06 13:32] LABS: Hematocrit 39.3 % (42-52); Hemoglobin 12.7 g/dl (14.0-18.0); Mean Corpuscular HGB Conc 32.3 g/dl (31.0-36.0); Mean Corpuscular Volume 92.7 fL (80-98); NRBC Pct Auto 0.2 /100WBC (0.0-0.2); Platelet Count 289 X10*3/uL (160-400); Red Blood Count 4.24 X10*6/uL (4.60-5.80); Red Cell Distribution Width 13.2 % (11.0-16.0); White Blood Count 12.6 X10*3/uL (4.8-10.8)
--- NOTE | 2020-06-06 13:32 | P.PNIM_ITS ---
Subjective Subjective Date of Service: 06/06/20 Interval History: short of breath Cardiovascular Cardiovascular: Reports no additional cardiovascular complaints Gastrointestinal Gastrointestinal: Reports no additional gastrointestinal complaints Physical Exam Vital Signs: Vital Signs: Vital Signs Temp Pulse Resp BP Pulse Ox 06/06/20 12:02 20 06/06/20 08:00 98.5 F 94 21 H 169/77 H 88 L 06/06/20 07:39 94 169/77 H 06/06/20 04:00 98.9 F 83 19 163/80 H 90 L 06/05/20 23:53 97.5 F 78 19 135/76 89 L 06/05/20 19:44 97.9 F 85 20 144/73 H 90 L 06/05/20 18:40 97.5 F 85 20 144/73 H 06/05/20 15:44 97.6 F 74 20 139/67 06/05/20 15:35 98.1 F 78 20 141/68 H 93 06/05/20 15:30 98.1 F 78 20 141/68 H Body Mass Index 28.2 General: AO X 3, ill appearing, mildly tachypneic with abdominal breathing, but no acute distress Resp: rhonchi CVS: S1,S2,RRR GI: soft, non tender, non distended Neuro: motor grossly intact Psych: appropriate affect Objective Data Current Medications Generic Name Dose Route Start Last Admin Trade Name Justinq PRN Reason Stop Dose Admin Acetaminophen 650 mg 06/04/20 23:31 Acetaminophen 325 Mg Tablet PO Q6H PRN Pain, Mild (Pain Scale 1-3) Albuterol Sulfate 2 puff 06/04/20 23:31 06/06/20 03:06 Albuterol Sulfate 90 Mcg 8 Gm Inhaler INHALE 2 puff Q4H PRN Administration Shortness of Breath/Wheezing Dexamethasone 6 mg 06/05/20 09:00 06/06/20 07:38 Dexamethasone 6 Mg Tablet PO 6 mg DAILY TOY Administration Docusate Sodium 100 mg 06/04/20 23:31 Docusate Sodium 100 Mg Capsule PO DAILY PRN Constipation Enalapril Maleate 10 mg 06/05/20 09:00 06/06/20 07:39 Enalapril Maleate 10 Mg Tablet PO 10 mg DAILY TOY Administration Protocol Enoxaparin Sodium 75 mg 06/06/20 13:00 Enoxaparin Sodium 80 Mg/0.8 Ml Syringe SUBCUT Q12H TOY Fluticasone/Vilanterol 1 puff 06/05/20 08:00 06/06/20 08:31 Fluticasone/Vilanterol 200/25 Blst.W.Dev INHALE 1 puff RDAILY [facility] Administration Remdesivir 100 mg/ Sodium 250 mls @ 125 mls/hr 06/06/20 21:00 Chloride IV 06/09/20 22:59 Q24H TOY Ceftriaxone Sodium 1 gm/ 50 mls @ 100 mls/hr 06/06/20 13:00 Sodium Chloride IV Q24H TOY Ondansetron HCl 4 mg 06/04/20 23:31 Ondansetron Hcl 4 Mg/2 Ml Vial IVPUSH Q8H PRN Nausea and Vomiting Pharmacy Consult 1 each 06/04/20 19:07 Consult Rx Perform Med Rec MISCELLANE ONCE PRN Consult order Sodium Chloride 3 ml 06/05/20 00:00 06/06/20 07:56 0.9 % Sodium Chloride Flush 3 Ml Syringe IVFLUSH Not Given QSHIFT [facility] Labs CBC & Chem 7: 06/06/20 06:12 06/06/20 06:12 Microbiology Microbiology Results: Microbiology 06/04/20 17:18 Blood - Venous Blood Culture - Preliminary No growth after 24 hours. 06/04/20 17:18 Blood - Venous Blood Culture - Preliminary No growth after 24 hours. Assessment and Plan (1) COVID-19: Problem details: She has COVID sepsis and is on NRB She has no bacterial infection seen at this time She is on Dexamethasone Status: Acute (2) Respiratory failure, unspecified with hypoxia: Status: Acute (3) COPD exacerbation: Status: Acute (4) Hypertension: Status: Acute Assessment and Plan: 74M presented with sob Sepsis present on admission due to viral pneumonia with COVID complicated by acute hypoxic respiratory failure hypoxia worsened today while on 100% non-rebreather with high-flow oxygen Discussed with intensive care, patient only mildly tachypneic and appears to have some reserve. Therefore, with goal of delaying intubation as much as possible, will continue to observe. continue remdesivir, Decadron will start empiric antibiotics will start empiric anticoagulation hypertension enalapril
[2020-06-06] MEDS: cefTRIAXone sodium 1 GM in 0.9 % Sodium Chloride 50 ML IV (13:36)
[2020-06-06] MEDS: Enoxaparin Sodium 80 MG/0.8 ML SYRINGE 75 MG SUBCUT ×2 (13:36→20:57)
[2020-06-06] MEDS: 0.9 % Sodium Chloride Flush 3 ML SYRINGE IVFLUSH ×2 (13:36→20:43)
[2020-06-06 13:43] LABS: INTERNATIONAL NORM RATIO 1.4 (0.9-1.1); Prothrombin Time 17.1 SEC (10.8-13.0)
[2020-06-06 13:45] LABS: Partial Thromboplastin Time 30.2 SEC (24.1-38.0)
--- NOTE | 2020-06-06 14:44 | P.PNCC_ITS ---
Critical Care Event Note Summary Code activated: No Narrative: This case had a high probability of a clinically significant, sudden, or life threatening deterioration of this patient's condition which required my full and direct attention, intervention and personal management. called to evaluate this patient 1st from the standpoint of his bilateral COVID- 19 pneumonitis and ARDS he clearly has very extensive involvement bilaterally on his CT scan and due to dyspnea this morning we added 50 liters/minute of high- flow nasal cannula to his 100% non-rebreather and subjectively and objectively respiratory effort improved he is able to complete sentences id no accessory muscle use minimal diaphragm effort and we examined him at 2 points throughout the day and because with any little motion he desaturates into the high 80s we asked him if he needed further help because transferring him to the ICU would entail the ventilator and he did not feel he had that need at this point he was comfortable at rest and that he would notify us if his needs increased Critical Care Time (minutes): 20
--- NOTE | 2020-06-06 14:59 | MHC.CM.PN ---
SYSTEMS ACCOUNTANT completed with pts spouse as pt is on a NRB. CM contacted pts spouse, Belen Salazar ([phone]) via t/c with the assistance of [employer] real estate recruiter (#[id number]). Belen reports the pt is independent with all care and mobility. He does not use an assistive device and has only a nebulizer for DME. Pt has no in home services Belen does not know the name of pts PCP but reports he goes to [facility] on campus. Belen reports the pt speaks [place] well so he does not need anyone to go to the doctor with him . The pts current DC plan is home with no services however this may change. CM assured she or patient would be contacted prior to DC to review the plan. IMM was verbally reviewed with Belen and she is aware a copy will be mailed. of note: pt has a HCP on file listing his daughter Maral as his agent, however there is no contact information provided.
[2020-06-06] MEDS: Remdesivir 100 MG in 0.9 % Sodium Chloride 230 ML 125 MG IV (20:44)
[2020-06-07] VITALS (30 sets, daily range): BP systolic 70–160; BP diastolic 35–70; PULSE 66–94; RESP 16–32; TEMP 36.4–38.5; O2SAT 86–95; BMI 28.2
[2020-06-07] MEDS: diphenhydrAMINE HCL 50 MG/ML VIAL 25 MG IVPUSH (02:17)
[2020-06-07] MEDS: LORazepam 2 MG/ML VIAL 0.5 MG IVPUSH (06:24)
[2020-06-07] MEDS: Albuterol Sulfate 90 MCG 8 GM INHALER 2 PUFF INHALE (06:26)
[2020-06-07 06:51] LABS: Anion Gap 14 (12-20); Blood Urea Nitrogen 26 mg/dL (9-16); Calcium 7.4 mg/dL (8.4-10.2); Carbon Dioxide 27 mmol/L (22-29); Chloride 103 mmol/L (96-108); Creatinine Clr Calc Pharmacy 84.8; Estimated Glomerular Filt Rate > 60; Glucose Fasting 186 mg/dL (60-99); Potassium 4.4 mmol/l (3.3-5.1); Sodium 140 mmol/L (135-145)
[2020-06-07 06:53] LABS: Hematocrit 36.9 % (42-52); Hemoglobin 12.2 g/dl (14.0-18.0); Mean Corpuscular HGB Conc 33.1 g/dl (31.0-36.0); Mean Corpuscular Hemoglobin 30.1 pg (27.0-33.0); Mean Corpuscular Volume 91.1 fL (80-98); NRBC Pct Auto 0.2 /100WBC (0.0-0.2); Platelet Count 297 X10*3/uL (160-400); Red Blood Count 4.05 X10*6/uL (4.60-5.80); White Blood Count 10.2 X10*3/uL (4.8-10.8)
--- NOTE | 2020-06-07 07:46 | HO.PM.IMPN ---
Subjective Subjective Date of Service: 06/07/20 Interval History: now more sob, says hes ready to be intubated Cardiovascular Cardiovascular: Reports no additional cardiovascular complaints Gastrointestinal Gastrointestinal: Reports no additional gastrointestinal complaints Physical Exam Vital Signs: Vital Signs: Vital Signs Temp Pulse Resp BP Pulse Ox 06/07/20 07:22 22 H 06/07/20 04:00 97.7 F 87 20 154/66 H 90 L 06/07/20 03:19 20 06/07/20 00:00 98.7 F 82 20 138/63 88 L 06/06/20 23:51 20 06/06/20 20:11 22 H 06/06/20 19:45 98.9 F 81 24 H 139/63 91 L 06/06/20 15:55 24 H 06/06/20 15:11 98.3 F 87 16 123/60 92 06/06/20 12:02 20 06/06/20 08:00 98.5 F 94 21 H 169/77 H 88 L Body Mass Index 28.2 General: AO X 3, tachypneic, anxious, sob Resp: rhonchi CVS: S1,S2,RRR GI: soft, non tender, non distended Neuro: motor grossly intact Psych: appropriate affect Objective Data Current Medications Generic Name Dose Route Start Last Admin Trade Name Freq PRN Reason Stop Dose Admin Acetaminophen 650 mg 06/04/20 23:31 Acetaminophen 325 Mg Tablet PO Q6H PRN Pain, Mild (Pain Scale 1-3) Albuterol Sulfate 2 puff 06/04/20 23:31 06/07/20 06:26 Albuterol Sulfate 90 Mcg 8 Gm Inhaler INHALE 2 puff Q4H PRN Administration Shortness of Breath/Wheezing Dexamethasone 6 mg 06/05/20 09:00 06/06/20 07:38 Dexamethasone 6 Mg Tablet PO 6 mg DAILY TOY Administration Docusate Sodium 100 mg 06/04/20 23:31 Docusate Sodium 100 Mg Capsule PO DAILY PRN Constipation Enalapril Maleate 10 mg 06/05/20 09:00 06/06/20 07:39 Enalapril Maleate 10 Mg Tablet PO 10 mg DAILY TOY Administration Protocol Enoxaparin Sodium 75 mg 06/06/20 13:00 06/06/20 20:57 Enoxaparin Sodium 80 Mg/0.8 Ml Syringe SUBCUT 75 mg Q12H TOY Administration Fluticasone/Vilanterol 1 puff 06/05/20 08:00 06/06/20 08:31 Fluticasone/Vilanterol 200/25 Blst.W.Dev INHALE 1 puff RDAILY TOY Administration Remdesivir 100 mg/ Sodium 250 mls @ 125 mls/hr 06/06/20 21:00 06/06/20 23:01 Chloride IV 06/09/20 22:59 Infused Q24H TOY Infusion Ceftriaxone Sodium 1 gm/ 50 mls @ 100 mls/hr 06/06/20 13:00 06/06/20 14:06 Sodium Chloride IV Infused Q24H TOY Infusion Ondansetron HCl 4 mg 06/04/20 23:31 Ondansetron Hcl 4 Mg/2 Ml Vial IVPUSH Q8H PRN Nausea and Vomiting Pharmacy Consult 1 each 06/04/20 19:07 Consult Rx Perform Med Rec MISCELLANE ONCE PRN Consult order Sodium Chloride 3 ml 06/05/20 00:00 06/06/20 20:43 0.9 % Sodium Chloride Flush 3 Ml Syringe IVFLUSH 3 ml QSHIFT TOY Administration Labs CBC & Chem 7: 06/07/20 05:41 06/07/20 05:41 Microbiology Microbiology Results: Microbiology 06/04/20 17:18 Blood - Venous Blood Culture - Preliminary No growth after 48 hours. 06/04/20 17:18 Blood - Venous Blood Culture - Preliminary No growth after 48 hours. Assessment and Plan (1) COVID-19: Problem details: She has COVID sepsis and is on NRB She has no bacterial infection seen at this time She is on Dexamethasone Status: Acute (2) Respiratory failure, unspecified with hypoxia: Status: Acute (3) COPD exacerbation: Status: Acute (4) Hypertension: Status: Acute Assessment and Plan: 74M presented with sob, now worsening Sepsis present on admission due to viral pneumonia with COVID complicated by acute hypoxic respiratory failure and history of HTN and COPD hypoxia continues to worsen today, desaturating on 100% NRB and max high flow, now tiring out plan for intubation and transfer on remdesivir, Decadron, therapeutic lovenox, empiric antibiotics hypertension enalapril
[2020-06-07] MEDS: Etomidate 20 MG/10 ML VIAL IVPUSH (07:55)
[2020-06-07] MEDS: Midazolam HCl/PF 2 MG/2 ML VIAL IVPUSH ×2 (07:55→08:05)
[2020-06-07] MEDS: 0.9 % Sodium Chloride Flush 3 ML SYRINGE IVFLUSH ×3 (07:55→23:02)
[2020-06-07] MEDS: Succinylcholine Chloride 200 MG/10 ML VIAL 100 MG IVPUSH (07:55)
[2020-06-07] MEDS: 0.9 % Sodium Chloride 1,000 ML 999 ML IVCONT (07:55)
[2020-06-07 08:07] LABS: Band Neutrophils Percent 9 % (3-5); Lymphocytes Absolute Manual 0.5 X10*3/uL (0.6-4.8); Lymphocytes Percent Manual 5 % (20-40); Monocytes Absolute Manual 0.1 X10*3/uL (0.0-1.2); Monocytes Percent Manual 1 % (2-11); Neutrophils Absolute Manual 9.6 X10*3/uL (2.2-7.9); Neutrophils Percent Manual 85 % (45-73)
[2020-06-07 08:08] LABS: Platelet Estimate NORMAL (NORMAL); Platelet Morphology Comment NOTED
[2020-06-07 08:09] LABS: Acanthocytes 1+; Large Platelet PRESENT; Ovalocytes 1+; Polychromasia 1+; RBC Morphology NOTED
[2020-06-07] MEDS: propofoL 1,000 MG/100 ML VIAL 9.24 MG IVCONT (08:15)
[2020-06-07] MEDS: HYDROmorphone HCl 2 MG/ML VIAL IVPUSH (08:15)
--- NOTE | 2020-06-07 09:19 | PC.NURSE ---
AT 0715AM PATIENT FOUND TO BE SOB, TACHYPNEIC, RESTLESS, AND WITH INCREASED WORK OF BREATHING. PATIENT WAS ON NRB 100% AND HIGHFLOW AT 60L WITH OXYGEN STATS IN THE MID 80S AND RR OF 28. DR. BISWAS AND RESPIRATORY THERAPIST AT THE BEDSIDE. ICU CALLED AND PATIENT INTUBATED AT BEDSIDE WITH DR. MCCABE. SERVICE AGENT AT BEDSIDE AND PATIENT TRANSFERRED TO ICU AT THIS TIME.
--- NOTE | 2020-06-07 09:29 | XR_ITS ---
EXAMINATION: XR CHEST CLINICAL INFORMATION: Angle, OG and TLC placement COMPARISON: CT chest 06/04/2020 and chest x-ray 06/04/2020 at 5:05 PM TECHNIQUE: Frontal view of the chest was obtained. FINDINGS: Again visualized is diffuse pulmonary infiltrates in both lungs with now involvement of left upper lobe. There is a new right central line with its tip in mid SVC. Endotracheal tube is approximately 2.8 cm above the harish. Enteric tube tip is below the diaphragm in the body the stomach. There is moderate spondylosis throughout dorsal spine. XR/XR chest 1V IMPRESSION: Multifocal bilateral infiltrates right greater than left, similar to previous study. New support lines and catheters are in satisfactory position.
--- NOTE | 2020-06-07 10:51 | MHC.CLN ---
RECOMMEND TF PROMOTE AT MAX GOAL RATE 60CC/HR WITH 240CC FREE WATER FLUSHES Q 6 HRS TO PROVIDE 1440KCALS, 90G PROTEIN (1.3G/KG), 2168CC TOTAL WATER (32CC/KG) MONITOR RESIDUALS, LYTES AND TOLERANCE SEE ALSO NUTRITION ASSESSMENT FOLLOWING
--- NOTE | 2020-06-07 11:09 | P.PCNCC_ITS ---
Procedures Central Line Placement Right SC: Central Line Comments: PROCEDURE: Insertion right subclavian central venous line. INDICATION: Acute respiratory failure. For IV access; blood draws, respiratory monitoring. ANESTHESIA: Local plus propofol infusion. PROCEDURE: Vascular ultrasound was used to examine the right side. A large compressible SCL vein, along with the deeper SCL artery were identified and confirmed by color brandin Doppler. The right subclavian areas was widely prepped and draped in full sterile fashion. Local anesthesia was applied to the subclavian area. The right subclavian vein was again identified by sterile US, and cannulated on the 1st pass of the 18 gauge thin wall under direct US guidance. The wire was threaded without incident. A 7 [place] by 16 cm triple-lumen catheter was advanced into the vein up to the hub via the Seldinger technique without incident. There was good blood return x3. The catheter was sutured x3 and a Biopatch and dry sterile dressing were applied. Postop chest x-ray showed the line in good position with no pneumothorax. The patient tolerated the procedure well w no complications. Consent for Procedure: Emergent-no informed consent obtained
[2020-06-07] MEDS: Rocuronium Bromide 50 MG/5 ML VIAL 70 MG IVPUSH (11:15)
[2020-06-07 11:41] LABS: INTERNATIONAL NORM RATIO 1.6 (0.9-1.1); Prothrombin Time 19.6 SEC (10.8-13.0)
[2020-06-07] MEDS: cefTRIAXone sodium 1 GM in 0.9 % Sodium Chloride 50 ML IV (12:49)
[2020-06-07] MEDS: Enoxaparin Sodium 80 MG/0.8 ML SYRINGE 75 MG SUBCUT (12:50)
[2020-06-07] MEDS: methylPREDNISolone Sod Succ/PF 125 MG/2 ML VIAL 80 MG IVPUSH ×2 (12:50→23:57)
[2020-06-07 13:25] LABS: Base Excess VBG 2.8 mmol/L; Glucose Urine UA 100 MG/DL (NEG); HCO3 VBG 28 mmol/L; Leukocyte Esterase Urine NEG (NEG); Nitrite Urine NEG (NEG); PCO2 VBG 45 mmhg; PO2 VBG 37 mmhg; Specific Gravity - Urine 1.025 (1.005-1.025); Urine Blood NEG (NEG); Urine Ketones 5 MG/DL (NEG); Urine Protein NEG (NEG-TRACE); pH VBG 7.41 (7.32-7.43)
[2020-06-07 13:26] LABS: Appearance Urine CLEAR; Blood Gas Serial # 5414; Color Urine YELLOW; Oxygen Saturation VBG 67.8 %
[2020-06-07] MEDS: propofoL 1,000 MG/100 ML VIAL 13.86 MG IVCONT (13:50)
--- NOTE | 2020-06-07 15:05 | PC.NURSE ---
Pt's daughter called to retrieve his keys and some personal effects for the pt's significant other: Belen Salazar. Pt's belongings were double bagged and brought to the main lobby where pt's daughter was given the belongings.
--- NOTE | 2020-06-07 16:03 | PM.IDPN ---
Subjective Subjective Date of Service: 06/07/20 Interval History: he has been intubated newly CXR diffuse infiltrates c/w COVID Objective Data Labs CBC & Chem 7: 06/07/20 05:41 06/07/20 05:41 Labs: Laboratory Results - last 24 hr 06/07/20 06/07/20 06/07/20 05:41 05:41 05:41 WBC Cancelled 10.2 RBC Cancelled 4.05 L Hgb Cancelled 12.2 L Hct Cancelled 36.9 L MCV Cancelled 91.1 MCH Cancelled 30.1 MCHC Cancelled 33.1 RDW Cancelled 13.0 Plt Count Cancelled 297 MPV Cancelled 12.0 Immature Gran % (Auto) Cancelled Neut % (Auto) Cancelled Lymph % (Auto) Cancelled [place] % (Auto) Cancelled Eos % (Auto) Cancelled Baso % (Auto) Cancelled Lymph # (Auto) Cancelled [place] # (Auto) Cancelled Eos # (Auto) Cancelled Baso # (Auto) Cancelled Abs Immat Gran (auto) Cancelled Absolute Neuts (auto) Cancelled Absolute Nucleated RBC Cancelled 0.020 H Nucleated RBC % (auto) Cancelled 0.2 Neutrophils % (Manual) 85 H Band Neutrophils % 9 H Lymphocytes % (Manual) 5 L Monocytes % (Manual) 1 L Abs Neuts (Manual) 9.6 H Lymphocytes # (Manual) 0.5 L Monocytes # (Manual) 0.1 Platelet Estimate NORMAL Large Platelets PRESENT Plt Morphology Comment NOTED RBC Morphology NOTED Polychromasia 1+ Ovalocytes 1+ Acanthocytes (Spur) 1+ PT INR VBG pH VBG pCO2 VBG Oxygen Liters/Min VBG pO2 VBG HCO3 VBG O2 Saturation VBG Base Excess Sodium 140 Potassium 4.4 Chloride 103 Carbon Dioxide 27 Anion Gap 14 BUN 26 H Creatinine 0.72 Estim Creat Clear Calc 84.8 Estimated GFR > 60 Fasting Glucose 186 H Calcium 7.4 L Urine Color Urine Appearance Urine pH Ur Specific [place] Urine Protein Urine Glucose (UA) Urine Ketones Urine Blood Urine Nitrite Ur Leukocyte Esterase 06/07/20 06/07/20 06/07/20 11:08 12:53 12:53 WBC RBC Hgb Hct MCV MCH MCHC RDW Plt Count MPV Immature Gran % (Auto) Neut % (Auto) Lymph % (Auto) [place] % (Auto) Eos % (Auto) Baso % (Auto) Lymph # (Auto) [place] # (Auto) Eos # (Auto) Baso # (Auto) Abs Immat Gran (auto) Absolute Neuts (auto) Absolute Nucleated RBC Nucleated RBC % (auto) Neutrophils % (Manual) Band Neutrophils % Lymphocytes % (Manual) Monocytes % (Manual) Abs Neuts (Manual) Lymphocytes # (Manual) Monocytes # (Manual) Platelet Estimate Large Platelets Plt Morphology Comment RBC Morphology Polychromasia Ovalocytes Acanthocytes (Spur) PT 19.6 H INR 1.6 H VBG pH 7.41 VBG pCO2 45 VBG Oxygen Liters/Min TNP VBG pO2 37 VBG HCO3 28 VBG O2 Saturation 67.8 VBG Base Excess 2.8 Sodium Potassium Chloride Carbon Dioxide Anion Gap BUN Creatinine Estim Creat Clear Calc Estimated GFR Fasting Glucose Calcium Urine Color YELLOW Urine Appearance CLEAR Urine pH 6.0 Ur Specific [place] 1.025 Urine Protein NEG Urine Glucose (UA) 100 H Urine Ketones 5 Urine Blood NEG Urine Nitrite NEG Ur Leukocyte Esterase NEG Microbiology Microbiology Results: Microbiology 06/07/20 08:25 Sputum - Suctioned Gram Stain - Final 06/04/20 17:18 Blood - Venous Blood Culture - Preliminary No growth after 48 hours. 06/04/20 17:18 Blood - Venous Blood Culture - Preliminary No growth after 48 hours. Physical Exam Vital Signs: Vital Signs: Vital Signs Temp Pulse Resp BP Pulse Ox 06/07/20 14:05 101.3 F H 87 25 H 96/46 L 93 06/07/20 13:59 101.3 F H 88 24 H 105/48 L 93 06/07/20 13:00 100.9 F H 83 21 H 96/47 L 92 06/07/20 12:00 100.9 F H 85 21 H 107/50 L 92 06/07/20 11:00 100.9 F H 86 21 H 100/48 L 92 06/07/20 10:00 101.1 F H 89 20 102/45 L 88 L 06/07/20 08:58 101.1 F H 92 32 H 137/53 L 88 L 06/07/20 08:32 20 87/43 L 87 L 06/07/20 08:29 88 19 79/40 L 87 L 06/07/20 08:25 88 20 78/38 L 89 L 06/07/20 08:22 66 19 70/35 L 89 L 06/07/20 08:18 88 19 95/44 L 89 L 06/07/20 08:15 88 19 128/52 L 90 L 06/07/20 07:22 22 H 06/07/20 07:15 28 H 86 L 06/07/20 04:00 97.7 F 87 20 154/66 H 90 L 06/07/20 03:19 20 06/07/20 00:00 98.7 F 82 20 138/63 88 L 06/06/20 23:51 20 06/06/20 20:11 22 H 06/06/20 19:45 98.9 F 81 24 H 139/63 91 L Body Mass Index 28.2 Const: General: no acute distress Eyes: General: appearance abnormal, both eyes Resp: Other: vented Cardio: Rate: regular rate Rhythm: regular rhythm GI: Palpation (GI): nontender Assessment and Plan Assessment and plan (1) COVID-19: Problem details: She has COVID sepsis and is ventilated She has no bacterial infection seen at this time She is not on Dexamethasone Status: Acute Assessment and Plan: Would give steroids No bacterial infection seen at this time (on Ceftriaxone) Would get sputum sample (2) COPD exacerbation: Status: Acute Time Spent With Patient Time: Total time spent is greater than 50% in coordination of care (as documented) at patient's floor/unit and/or counseling patient: Time with patient: less than 15 minutes
--- NOTE | 2020-06-07 16:07 | PM.IDPN ---
Objective Data Labs CBC & Chem 7: 06/07/20 05:41 06/07/20 05:41 Labs: Laboratory Results - last 24 hr 06/07/20 06/07/20 06/07/20 05:41 05:41 05:41 WBC Cancelled 10.2 RBC Cancelled 4.05 L Hgb Cancelled 12.2 L Hct Cancelled 36.9 L MCV Cancelled 91.1 MCH Cancelled 30.1 MCHC Cancelled 33.1 RDW Cancelled 13.0 Plt Count Cancelled 297 MPV Cancelled 12.0 Immature Gran % (Auto) Cancelled Neut % (Auto) Cancelled Lymph % (Auto) Cancelled [place] % (Auto) Cancelled Eos % (Auto) Cancelled Baso % (Auto) Cancelled Lymph # (Auto) Cancelled [place] # (Auto) Cancelled Eos # (Auto) Cancelled Baso # (Auto) Cancelled Abs Immat Gran (auto) Cancelled Absolute Neuts (auto) Cancelled Absolute Nucleated RBC Cancelled 0.020 H Nucleated RBC % (auto) Cancelled 0.2 Neutrophils % (Manual) 85 H Band Neutrophils % 9 H Lymphocytes % (Manual) 5 L Monocytes % (Manual) 1 L Abs Neuts (Manual) 9.6 H Lymphocytes # (Manual) 0.5 L Monocytes # (Manual) 0.1 Platelet Estimate NORMAL Large Platelets PRESENT Plt Morphology Comment NOTED RBC Morphology NOTED Polychromasia 1+ Ovalocytes 1+ Acanthocytes (Spur) 1+ PT INR VBG pH VBG pCO2 VBG Oxygen Liters/Min VBG pO2 VBG HCO3 VBG O2 Saturation VBG Base Excess Sodium 140 Potassium 4.4 Chloride 103 Carbon Dioxide 27 Anion Gap 14 BUN 26 H Creatinine 0.72 Estim Creat Clear Calc 84.8 Estimated GFR > 60 Fasting Glucose 186 H Calcium 7.4 L Urine Color Urine Appearance Urine pH Ur Specific [place] Urine Protein Urine Glucose (UA) Urine Ketones Urine Blood Urine Nitrite Ur Leukocyte Esterase 06/07/20 06/07/20 06/07/20 11:08 12:53 12:53 WBC RBC Hgb Hct MCV MCH MCHC RDW Plt Count MPV Immature Gran % (Auto) Neut % (Auto) Lymph % (Auto) [place] % (Auto) Eos % (Auto) Baso % (Auto) Lymph # (Auto) [place] # (Auto) Eos # (Auto) Baso # (Auto) Abs Immat Gran (auto) Absolute Neuts (auto) Absolute Nucleated RBC Nucleated RBC % (auto) Neutrophils % (Manual) Band Neutrophils % Lymphocytes % (Manual) Monocytes % (Manual) Abs Neuts (Manual) Lymphocytes # (Manual) Monocytes # (Manual) Platelet Estimate Large Platelets Plt Morphology Comment RBC Morphology Polychromasia Ovalocytes Acanthocytes (Spur) PT 19.6 H INR 1.6 H VBG pH 7.41 VBG pCO2 45 VBG Oxygen Liters/Min TNP VBG pO2 37 VBG HCO3 28 VBG O2 Saturation 67.8 VBG Base Excess 2.8 Sodium Potassium Chloride Carbon Dioxide Anion Gap BUN Creatinine Estim Creat Clear Calc Estimated GFR Fasting Glucose Calcium Urine Color YELLOW Urine Appearance CLEAR Urine pH 6.0 Ur Specific [place] 1.025 Urine Protein NEG Urine Glucose (UA) 100 H Urine Ketones 5 Urine Blood NEG Urine Nitrite NEG Ur Leukocyte Esterase NEG Microbiology Microbiology Results: Microbiology 06/07/20 08:25 Sputum - Suctioned Gram Stain - Final 06/04/20 17:18 Blood - Venous Blood Culture - Preliminary No growth after 48 hours. 06/04/20 17:18 Blood - Venous Blood Culture - Preliminary No growth after 48 hours. Physical Exam Vital Signs: Vital Signs: Vital Signs Temp Pulse Resp BP Pulse Ox 06/07/20 14:05 101.3 F H 87 25 H 96/46 L 93 06/07/20 13:59 101.3 F H 88 24 H 105/48 L 93 06/07/20 13:00 100.9 F H 83 21 H 96/47 L 92 06/07/20 12:00 100.9 F H 85 21 H 107/50 L 92 06/07/20 11:00 100.9 F H 86 21 H 100/48 L 92 06/07/20 10:00 101.1 F H 89 20 102/45 L 88 L 06/07/20 08:58 101.1 F H 92 32 H 137/53 L 88 L 06/07/20 08:32 20 87/43 L 87 L 06/07/20 08:29 88 19 79/40 L 87 L 06/07/20 08:25 88 20 78/38 L 89 L 06/07/20 08:22 66 19 70/35 L 89 L 06/07/20 08:18 88 19 95/44 L 89 L 11/02/20 08:15 88 19 128/52 L 90 L 06/07/20 07:22 22 H 06/07/20 07:15 28 H 86 L 06/07/20 04:00 97.7 F 87 20 154/66 H 90 L 06/07/20 03:19 20 06/07/20 00:00 98.7 F 82 20 138/63 88 L 06/06/20 23:51 20 06/06/20 20:11 22 H 06/06/20 19:45 98.9 F 81 24 H 139/63 91 L Body Mass Index 28.2 Assessment and Plan Time Spent With Patient Time: Total time spent is greater than 50% in coordination of care (as documented) at patient's floor/unit and/or counseling patient: Time with patient: less than 15 minutes
--- NOTE | 2020-06-07 19:30 | PC.NURSE ---
SHIFT UPDATE 7A-7P; PT ON [facility] [place] THIS AM- THIS RN ASSISTING WITH INTUBATION WITH ER PHYSICIAN ON [facility] [place] RM 479; MEDICATED WITH ETOMIDATE, VERSED AND SUCCS FOR INTUBATION, 7.5 ET TUBE PLACED AT 23 CM MELISSA, SECURED; 1L NS HUNG DURING MED ADMINISTRATION, 2 MG IV VERSED GIVEN ADDITIONALLY DURING TRANSPORT PT BEGINNING TO BECOME RESTLESS AND AGITATED ON VENT; PT TO ICU 262- ON VENT PCV SETTINGS; RESTRAINTS APPLIED; PT REACHING FOR TUBE, FIGHTING VENT AND DIFFICULT TO VENTILATE- PROPOFOL GTT STATED; 2 MG IV DILAUDID GIVEN AND 70 MG IV LISA GIVEN; MIR PLACED AND OG TUBE PLACED BY THIS RN; LEVOPHED GTT STARTED FOR BP SUPPORT FOLLOWED BY TLC PLACEMENT BY DR LARIOS IN PTS R SUBCLAVIAN AROUND 0930 THIS AM; CXR PERFORMED TO VERIFY PLACEMENT OF ALL TUBES AND LINES; VBGS DONE; VENT SETTINGS ADJUSTED PER MD ORDERS; PT MAINTAINING SATS AND VOLUMES ON VENTILATOR WITH ADJUSTMENTS NEEDED THROUGHOUT DAY; SPOUSE COREEN SPOKEN TO- ASKED TO REACH OUT TO GARIMA SALAZAR WHO IS PTS DAUGHTER AND HCP ON RECORD, HCP GARIMA SALAZAR ON PHONE THIS EVENING- UPDATED OF PTS STATUS; CONTACT INFORMATION UPDATED IN COMPUTER; REPORT GIVEN TO LUIS FERNANDO Collins RN AT 1900
[2020-06-07] MEDS: propofoL 1,000 MG/100 ML VIAL 16.17 MG IVCONT (20:02)
[2020-06-07] MEDS: Remdesivir 100 MG in 0.9 % Sodium Chloride 230 ML 125 MG IV (20:20)
--- NOTE | 2020-06-07 21:24 | P.PNCC_ITS ---
Subjective Subjective Date of Service: 06/07/20 Interval History: Mr. Rodriguez was transferred to the ICU this morning after being intubated on IMC because of COVID-19 pneumonia with acute respiratory failure. The patient is a 74-year-old male with past medical history of COPD and hypertension. He?s a former smoker, lives at home. The patient presented to the ED on June 04 c/o SOB x 2 days, associated with wheezing, sputum production, fever, and loss of appetite. On arrival to e ED, he was tachypneic, with room air Sat 40?s. Sat gulshan to 96-100% on non- rebreather face mask, with no increased WOB. ABG on 6LNC (?) showed 7.42/38/105/0, BUN/creat were 39/1.2 (baseline 0.9), lactate was 3.4, LDH 498, and COVID-19 PCR positive. CXR showed bilateral multifocal pneumonia. CT angiogram was negative for PE, and showed extensive ground-glass opacification throughout the lungs (suggesting very advanced COVID). He was admitted to Medicine and tx with Decadron, fluids, and Zithromax. Remdesivir was started. Yesterday his oxygenation worsened and HFNC was added. He was seen by Dr. Delgado, but the patient declined tx to ICU, felt he didn?t need it. He was started on Ceftriaxone and full dose bid Lovenox. This morning, his oxygenation worsened and he agreed to intubation. He was intubated on IMC and transferred to ICU. After arrival to ICU, a CVL was placed. See Vital Signs below. On the ventilator, AC/PC 20, press 20/12, 100%, Sat was 90%. Peak inspiratory pressure mid 30s, plateau pressure 32. No JVD at 30?. Chest CTA with bilat tubular BS. Soft heart tones, no M or G. Abd benign. No edema. LABORATORY DATA: As below. Central venous gas in the early afternoon showed 7.41/45/+2. Chest x-ray post intubation shows bilateral pulmonary infiltrates, right side much worse than left. MICROBIOLOGY: Sputum g stain post intubation showed 2+ polys, 1+ Gram-positive cocci. IMPRESSION: 1. Late stage bilat COVID-19 pneumonia. 2. Acute hypoxemic respiratory failure. 2? to the above 3. Acute kidney injury. Resolved. 4. ID. No hard evidence of bacterial superinfection. Check PCT. No evidence of bacterial sepsis. We?ll start solumedrol 80mg bid, high dose melatonin, Vit D, Thiamine, atorvastatin, magnesium, and high dose Pepcid. I?ll discuss ivermectin with pharmacy. Check daily D-dimer, ferritin, CRP, magnesium, and procalcitonin. Prognosis at this point is very poor. Critical care time (including extended chart rev, mult min at the bedside; excluding procedures): 90 min. HCP: Daughter Maral Rodriguez, . Physical Exam Vital Signs: Vital Signs: Vital Signs Temp Pulse Resp BP Pulse Ox 06/07/20 21:00 97.9 F 80 20 153/67 H 95 06/07/20 20:00 98.4 F 86 20 144/70 H 92 06/07/20 19:00 98.8 F 86 20 141/67 H 93 06/07/20 18:00 99.3 F 89 21 H 144/67 H 93 06/07/20 17:00 100.2 F 75 19 136/60 95 06/07/20 16:00 101.1 F H 87 25 H 126/49 L 90 L 06/07/20 14:05 101.3 F H 87 25 H 96/46 L 93 06/07/20 13:59 101.3 F H 88 24 H 105/48 L 93 06/07/20 13:00 100.9 F H 83 21 H 96/47 L 92 06/07/20 12:00 100.9 F H 85 21 H 107/50 L 92 06/07/20 11:00 100.9 F H 86 21 H 100/48 L 92 06/07/20 10:00 101.1 F H 89 20 102/45 L 88 L 06/07/20 08:58 101.1 F H 92 32 H 137/53 L 88 L 06/07/20 08:32 20 87/43 L 87 L 06/07/20 08:29 88 19 79/40 L 87 L 06/07/20 08:25 88 20 78/38 L 89 L 06/07/20 08:22 66 19 70/35 L 89 L 06/07/20 08:18 88 19 95/44 L 89 L 06/07/20 08:15 88 19 128/52 L 90 L 06/07/20 07:22 22 H 06/07/20 07:15 28 H 86 L 06/07/20 04:00 97.7 F 87 20 154/66 H 90 L 06/07/20 03:19 20 06/07/20 00:00 98.7 F 82 20 138/63 88 L 06/06/20 23:51 20 Body Mass Index 28.2 Objective Data Labs CBC & Chem 7: 06/08/20 05:21 06/08/20 05:21 Labs: Laboratory Results - last 24 hr 06/07/20 06/07/20 06/07/20 05:41 05:41 05:41 WBC Cancelled 10.2 RBC Cancelled 4.05 L Hgb Cancelled 12.2 L Hct Cancelled 36.9 L MCV Cancelled 91.1 MCH Cancelled 30.1 MCHC Cancelled 33.1 RDW Cancelled 13.0 Plt Count Cancelled 297 MPV Cancelled 12.0 Immature Gran % (Auto) Cancelled Neut % (Auto) Cancelled Lymph % (Auto) Cancelled [place] % (Auto) Cancelled Eos % (Auto) Cancelled Baso % (Auto) Cancelled Lymph # (Auto) Cancelled [place] # (Auto) Cancelled Eos # (Auto) Cancelled Baso # (Auto) Cancelled Abs Immat Gran (auto) Cancelled Absolute Neuts (auto) Cancelled Absolute Nucleated RBC Cancelled 0.020 H Nucleated RBC % (auto) Cancelled 0.2 Neutrophils % (Manual) 85 H Band Neutrophils % 9 H Lymphocytes % (Manual) 5 L Monocytes % (Manual) 1 L Abs Neuts (Manual) 9.6 H Lymphocytes # (Manual) 0.5 L Monocytes # (Manual) 0.1 Platelet Estimate NORMAL Large Platelets PRESENT Plt Morphology Comment NOTED RBC Morphology NOTED Polychromasia 1+ Ovalocytes 1+ Acanthocytes (Spur) 1+ PT INR VBG pH VBG pCO2 VBG Oxygen Liters/Min VBG pO2 VBG HCO3 VBG O2 Saturation VBG Base Excess Sodium 140 Potassium 4.4 Chloride 103 Carbon Dioxide 27 Anion Gap 14 BUN 26 H Creatinine 0.72 Estim Creat Clear Calc 84.8 Estimated GFR > 60 Fasting Glucose 186 H Calcium 7.4 L Urine Color Urine Appearance Urine pH Ur Specific [place] Urine Protein Urine Glucose (UA) Urine Ketones Urine Blood Urine Nitrite Ur Leukocyte Esterase 06/07/20 06/07/20 06/07/20 11:08 12:53 12:53 WBC RBC Hgb Hct MCV MCH MCHC RDW Plt Count MPV Immature Gran % (Auto) Neut % (Auto) Lymph % (Auto) [place] % (Auto) Eos % (Auto) Baso % (Auto) Lymph # (Auto) [place] # (Auto) Eos # (Auto) Baso # (Auto) Abs Immat Gran (auto) Absolute Neuts (auto) Absolute Nucleated RBC Nucleated RBC % (auto) Neutrophils % (Manual) Band Neutrophils % Lymphocytes % (Manual) Monocytes % (Manual) Abs Neuts (Manual) Lymphocytes # (Manual) Monocytes # (Manual) Platelet Estimate Large Platelets Plt Morphology Comment RBC Morphology Polychromasia Ovalocytes Acanthocytes (Spur) PT 19.6 H INR 1.6 H VBG pH 7.41 VBG pCO2 45 VBG Oxygen Liters/Min TNP VBG pO2 37 VBG HCO3 28 VBG O2 Saturation 67.8 VBG Base Excess 2.8 Sodium Potassium Chloride Carbon Dioxide Anion Gap BUN Creatinine Estim Creat Clear Calc Estimated GFR Fasting Glucose Calcium Urine Color YELLOW Urine Appearance CLEAR Urine pH 6.0 Ur Specific [place] 1.025 Urine Protein NEG Urine Glucose (UA) 100 H Urine Ketones 5 Urine Blood NEG Urine Nitrite NEG Ur Leukocyte Esterase NEG Microbiology Microbiology Results: Microbiology 06/07/20 08:25 Sputum - Suctioned Gram Stain - Final 06/04/20 17:18 Blood - Venous Blood Culture - Preliminary No growth after 48 hours. 06/04/20 17:18 Blood - Venous Blood Culture - Preliminary No growth after 48 hours. Progress Note: A&P Time Spent With Patient Time: Total time spent is greater than 50% in coordination of care (as documented) at patient's floor/unit and/or counseling patient: Total time spent with greater than 50% in coordination of care (as documented) at patient's floor/unit and/or counseling patient:: 0 Critical Care Time Critical Care Time (minutes): 90
[2020-06-07] MEDS: Melatonin 3 MG TABLET 9 MG PO (23:01)
[2020-06-07] MEDS: Thiamine HCL 200 MG/2 ML VIAL IV (23:01)
[2020-06-07] MEDS: propofoL 1,000 MG/100 ML VIAL 20.79 MG IVCONT (23:56)
[2020-06-08] VITALS (31 sets, daily range): BP systolic 108–162; BP diastolic 41–75; PULSE 66–88; RESP 16–24; TEMP 36.5–37.7; O2SAT 89–94
[2020-06-08] MEDS: Enoxaparin Sodium 80 MG/0.8 ML SYRINGE 75 MG SUBCUT ×2 (00:01→11:08)
[2020-06-08] MEDS: propofoL 1,000 MG/100 ML VIAL 20.79 MG IVCONT ×5 (04:23→21:14)
[2020-06-08 05:45] LABS: Basophils Percent Auto 0.2 % (0-2); Hematocrit 34.6 % (42-52); Imm Gran Abs Auto 0.46 X10*3/uL (0.00-0.03); Imm Gran Pct Auto 4.8 % (0.0-0.4); Lymphocytes Absolute Auto 0.5 X10*3/uL (1.2-4.9); Lymphocytes Percent Auto 5.4 % (20-40); MANUAL DIFF FLAG SCAN; Mean Corpuscular HGB Conc 31.8 g/dl (31.0-36.0); Mean Corpuscular Hemoglobin 29.8 pg (27.0-33.0); Mean Corpuscular Volume 93.8 fL (80-98); Mean Platelet Volume 12.1 fL (9.4-12.4); Monocytes Absolute Auto 0.1 X10*3/uL (0.1-1.2); Monocytes Percent Auto 1.3 % (2-11); Neutrophils Absolute Auto 8.5 X10*3/uL (2.0-8.3); Neutrophils Percent Auto 88.3 % (45-73); Platelet Count 290 X10*3/uL (160-400); Red Blood Count 3.69 X10*6/uL (4.60-5.80); Red Cell Distribution Width 13.3 % (11.0-16.0); SCAN SMEAR FLAG 1; White Blood Count 9.6 X10*3/uL (4.8-10.8)
[2020-06-08 05:51] LABS: Base Excess VBG 1.2 mmol/L; HCO3 VBG 26 mmol/L; Oxygen Saturation VBG 78.1 %; PCO2 VBG 44 mmhg; PO2 VBG 47 mmhg; pH VBG 7.39 (7.32-7.43)
[2020-06-08 06:07] LABS: Lactic Acid 1.5 mmol/L (0.5-2.0)
[2020-06-08 06:16] LABS: Alanine Aminotransferase 26 U/L (0-40); Albumin Level 2.3 g/dL (3.5-5.0); Alkaline Phosphatase 110 U/L (39-117); Anion Gap 14 (12-20); Aspartate Amino Transferase 23 U/L (5-37); Bilirubin Total 0.5 mg/dL (0.0-1.0); Blood Urea Nitrogen 44 mg/dL (9-16); Calcium 7.1 mg/dL (8.4-10.2); Carbon Dioxide 25 mmol/L (22-29); Chloride 103 mmol/L (96-108); Creatinine Clr Calc Pharmacy 67.1; Estimated Glomerular Filt Rate > 60; Glucose Random 452 mg/dL (60-115); Magnesium 3.2 mg/dL (1.6-2.6); Phosphorus 4.7 mg/dL (2.7-4.5); Potassium 4.7 mmol/l (3.3-5.1); Sodium 137 mmol/L (135-145); Total Protein 5.1 g/dL (6.5-8.0)
--- NOTE | 2020-06-08 06:24 | PC.NURSE ---
PT MAINTAINED ON PRESSURE CONTROL VENT SETTINGS OVERNIGHT. NO RESP DIFFICULTIES. O2 SATS 92-95% ON FIO2 OF 80%. RESP RATE 16-22. GOOD SEDATION EFFECT ON PROPOFOL. BP STABLE ON LEVOPHED AND GTT SHUT OFF AT 0630 FOR BP 126/52, MAP 70. U/O GOOD 40-200 ML/HR. MONITOR SHOWS NSR, HR 60'S-80, NO ECTOPY. TOLERATING TUBE FEEDS ORDERED AND TITRATING UP TO MAX RATE. PT TURNED AND REPOS Q2H. SKIN INTEGRITY GOOD/INTACT.
[2020-06-08 06:28] LABS: SARS COV2 IgG Positive (Negative)
[2020-06-08 06:33] LABS: Ferritin 1329 ng/mL (20-250)
[2020-06-08 07:04] LABS: D Dimer 5001 NG/ML
[2020-06-08 08:07] LABS: SLIDE REVIEW VERIFIED
[2020-06-08] MEDS: 0.9 % Sodium Chloride Flush 3 ML SYRINGE IVFLUSH ×2 (08:24→16:11)
[2020-06-08] MEDS: Insulin Regular/NS 100 UNIT/100 ML PLAST..BAG IVCONT (08:24)
[2020-06-08 09:29] LABS: Glucose, Whole Blood 453 mg/dL (60-115)
[2020-06-08] MEDS: methylPREDNISolone Sod Succ/PF 125 MG/2 ML VIAL 80 MG IVPUSH (11:07)
[2020-06-08] MEDS: Atorvastatin Calcium 80 MG TABLET PO (11:07)
[2020-06-08] MEDS: Famotidine 20 MG TABLET 40 MG PO ×2 (11:07→21:21)
[2020-06-08] MEDS: cefTRIAXone sodium 1 GM in 0.9 % Sodium Chloride 50 ML IV (11:09)
[2020-06-08 11:46] LABS: Glucose, Whole Blood 398 mg/dL (60-115)
[2020-06-08 12:22] LABS: C Reactive Protein 30.98 mg/dL (< or = 0.50)
[2020-06-08] MEDS: Thiamine HCL 200 MG in 0.9 % Sodium Chloride 100 ML 204 MG IV ×2 (13:52→21:16)
[2020-06-08 14:17] LABS: Glucose, Whole Blood 335 mg/dL (60-115)
--- NOTE | 2020-06-08 15:41 | PM.IDPN ---
Subjective Subjective Date of Service: 06/08/20 Interval History: He remains in ICU He is day 3 Ceftriaxone and day 4 Remdesivir for COVID He has procalcitonin of 4 and gram positive cocci in sputum with polys Objective Data Labs CBC & Chem 7: 06/08/20 05:21 06/08/20 05:21 Labs: Laboratory Results - last 24 hr 06/08/20 06/08/20 06/08/20 05:20 05:20 05:20 WBC RBC Hgb Hct MCV MCH MCHC RDW Plt Count MPV Immature Gran % (Auto) Neut % (Auto) Lymph % (Auto) [place] % (Auto) Eos % (Auto) Baso % (Auto) Lymph # (Auto) [place] # (Auto) Eos # (Auto) Baso # (Auto) Abs Immat Gran (auto) Absolute Neuts (auto) Absolute Nucleated RBC Nucleated RBC % (auto) Smear Tech's Comments D-Dimer 5001 VBG pH VBG pCO2 VBG Oxygen Liters/Min VBG pO2 VBG HCO3 VBG O2 Saturation VBG Base Excess Sodium Potassium Chloride Carbon Dioxide Anion Gap BUN Creatinine Estim Creat Clear Calc Estimated GFR POC Glucose Random Glucose Lactic Acid 1.5 Calcium Phosphorus Magnesium Ferritin Cancelled Total Bilirubin AST ALT Alkaline Phosphatase C-Reactive Protein Total Protein Albumin Procalcitonin SARS-CoV-2 IgG Ab 06/08/20 06/08/20 06/08/20 05:20 05:20 05:21 WBC 9.6 RBC 3.69 L Hgb 11.0 L Hct 34.6 L MCV 93.8 MCH 29.8 MCHC 31.8 RDW 13.3 Plt Count 290 MPV 12.1 Immature Gran % (Auto) 4.8 H Neut % (Auto) 88.3 H Lymph % (Auto) 5.4 L [place] % (Auto) 1.3 L Eos % (Auto) 0.0 Baso % (Auto) 0.2 Lymph # (Auto) 0.5 L [place] # (Auto) 0.1 Eos # (Auto) 0.0 Baso # (Auto) 0.0 Abs Immat Gran (auto) 0.46 H Absolute Neuts (auto) 8.5 H Absolute Nucleated RBC 0.000 Nucleated RBC % (auto) 0.0 Smear Tech's Comments VERIFIED D-Dimer VBG pH 7.39 VBG pCO2 44 VBG Oxygen Liters/Min Not Reportable VBG pO2 47 VBG HCO3 26 VBG O2 Saturation 78.1 VBG Base Excess 1.2 Sodium Potassium Chloride Carbon Dioxide Anion Gap BUN Creatinine Estim Creat Clear Calc Estimated GFR POC Glucose Random Glucose Lactic Acid Calcium Phosphorus Magnesium Ferritin Total Bilirubin AST ALT Alkaline Phosphatase C-Reactive Protein Total Protein Albumin Procalcitonin 4.40 SARS-CoV-2 IgG Ab 06/08/20 06/08/20 06/08/20 05:21 05:21 08:35 WBC RBC Hgb Hct MCV MCH MCHC RDW Plt Count MPV Immature Gran % (Auto) Neut % (Auto) Lymph % (Auto) [place] % (Auto) Eos % (Auto) Baso % (Auto) Lymph # (Auto) [place] # (Auto) Eos # (Auto) Baso # (Auto) Abs Immat Gran (auto) Absolute Neuts (auto) Absolute Nucleated RBC Nucleated RBC % (auto) Smear Tech's Comments D-Dimer VBG pH VBG pCO2 VBG Oxygen Liters/Min VBG pO2 VBG HCO3 VBG O2 Saturation VBG Base Excess Sodium 137 Potassium 4.7 Chloride 103 Carbon Dioxide 25 Anion Gap 14 BUN 44 H D Creatinine 0.91 Estim Creat Clear Calc 67.1 Estimated GFR > 60 POC Glucose 453 H* Random Glucose 452 H* Lactic Acid Calcium 7.1 L Phosphorus 4.7 H Magnesium 3.2 H Ferritin 1329 H Total Bilirubin 0.5 AST 23 ALT 26 Alkaline Phosphatase 110 C-Reactive Protein 30.98 H Total Protein 5.1 L Albumin 2.3 L D Procalcitonin SARS-CoV-2 IgG Ab Positive 06/08/20 06/08/20 11:16 14:01 WBC RBC Hgb Hct MCV MCH MCHC RDW Plt Count MPV Immature Gran % (Auto) Neut % (Auto) Lymph % (Auto) [place] % (Auto) Eos % (Auto) Baso % (Auto) Lymph # (Auto) [place] # (Auto) Eos # (Auto) Baso # (Auto) Abs Immat Gran (auto) Absolute Neuts (auto) Absolute Nucleated RBC Nucleated RBC % (auto) Smear Tech's Comments D-Dimer VBG pH VBG pCO2 VBG Oxygen Liters/Min VBG pO2 VBG HCO3 VBG O2 Saturation VBG Base Excess Sodium Potassium Chloride Carbon Dioxide Anion Gap BUN Creatinine Estim Creat Clear Calc Estimated GFR POC Glucose 398 H* 335 H Random Glucose Lactic Acid Calcium Phosphorus Magnesium Ferritin Total Bilirubin AST ALT Alkaline Phosphatase C-Reactive Protein Total Protein Albumin Procalcitonin SARS-CoV-2 IgG Ab Microbiology Microbiology Results: Microbiology 06/07/20 08:25 Sputum - Suctioned Gram Stain - Final 06/07/20 08:25 Sputum - Suctioned Sputum Culture - Preliminary Normal so far. 06/04/20 17:18 Blood - Venous Blood Culture - Preliminary No growth after 48 hours. 06/04/20 17:18 Blood - Venous Blood Culture - Preliminary No growth after 48 hours. Physical Exam Vital Signs: Vital Signs: Vital Signs Temp Pulse Resp BP Pulse Ox 06/08/20 15:00 99.1 F 78 21 H 110/43 L 90 L 06/08/20 14:00 99.3 F 80 21 H 121/48 L 90 L 06/08/20 13:00 98.8 F 73 19 116/45 L 90 L 06/08/20 12:00 98.8 F 74 20 123/50 L 91 L 06/08/20 11:00 98.6 F 70 17 108/52 L 92 06/08/20 10:00 72 18 112/57 L 92 06/08/20 09:00 72 22 H 124/62 91 L 06/08/20 08:00 97.9 F 73 18 117/45 L 93 06/08/20 07:00 97.9 F 66 17 132/53 L 94 06/08/20 06:00 69 16 130/58 L 06/08/20 05:00 98.1 F 78 18 133/60 93 06/08/20 04:00 98.1 F 84 20 141/68 H 92 06/08/20 03:00 97.9 F 78 21 H 115/54 L 93 06/08/20 02:00 77 17 139/62 93 06/08/20 01:00 97.9 F 83 19 162/75 H 93 06/08/20 00:00 97.7 F 84 21 H 155/74 H 92 06/07/20 23:35 97.5 F 81 17 159/66 H 94 06/07/20 22:00 97.9 F 80 16 142/64 H 94 06/07/20 21:00 97.9 F 80 20 153/67 H 95 06/07/20 20:00 98.4 F 86 20 144/70 H 92 06/07/20 19:00 98.8 F 86 20 141/67 H 93 06/07/20 18:00 99.3 F 89 21 H 144/67 H 93 06/07/20 17:00 100.2 F 75 19 136/60 95 06/07/20 16:00 101.1 F H 87 25 H 126/49 L 90 L Body Mass Index 28.2 Const: General: cooperative Eyes: General: appearance normal, both eyes and all related structures Resp: Effort & Inspection: abnormal respiratory pattern Cardio: Rate: regular rate Rhythm: regular rhythm GI: Inspection: Yes normal to inspection Assessment and Plan Assessment and plan (1) COVID-19: Problem details: He has COVID and COPD exacerbation Status: Acute Assessment and Plan: Doxycycline for 5 days,COPD and finish Remdesivir and steroids (2) COPD exacerbation: Status: Acute Time Spent With Patient Time: Total time spent is greater than 50% in coordination of care (as documented) at patient's floor/unit and/or counseling patient: Time with patient: 15 - 24 minutes
[2020-06-08] MEDS: Insulin Regular/NS 100 UNIT/100 ML PLAST..BAG 8 UNIT IVCONT (16:46)
[2020-06-08 16:52] LABS: Glucose, Whole Blood 274 mg/dL (60-115)
--- NOTE | 2020-06-08 17:48 | P.CONNP_ITS ---
History of Present Illness Reason for Consult Consult date: 06/08/20 Chief Complaint Chief complaint: Hypoxic resp failure, covid 19 History of Present Illness Narrative: Info obtained from EHR as PT on vent COVID 19 with severe reps failure c/w COVID acute lung injury. Renal func a this time remains stable 0.7 to 1.2 over the past 4 days UOP approx 2L /24 hrs and I =Opast 24 hrs Review of Systems Review of Systems unobtainable Yes unobtainable due to endotracheal tube PMFSH Past Medical History Medical History (Updated 06/08/20 @ 15:44 by Alysha Robles MD) COPD (chronic obstructive pulmonary disease) Hypertension Hypoventilation Family History Family History (Updated 06/07/20 @ 09:32 by RENALDO Pastor) Father No problems noted. Mother No problems noted. Surgical History Surgical History (Updated 06/07/20 @ 09:31 by RENALDO Pastor) No pertinent past surgical history Social History Social History Household Members: Significant Other Housing: Apartment Alcohol intake: never Smoked in Last 30 Days: No Use of substances other than those prescribed or required for medical reasons: No Currently Displaying Signs/Symptoms of Drug Intoxication Withdrawal: No Have you been hit, kicked, punched, or otherwise hurt by someone within the past year? If so, by whom?: No Do you feel safe in your current relationship?: Yes Is there a partner from a previous relationship who is making you feel unsafe now?: No Are you made to feel afraid or neglected: No Advance Directives: No Advance Directives Information Provided: Yes Do you have thoughts of harming others: None Do you have a plan to hurt others: No Plan Recently lost weight without trying: No service: No Current occupational status: retired Meds Allergies Allergy/AdvReac Type Severity Reaction Status Date / Time No Known Allergies Allergy Verified 06/07/20 09:31 Home Medications Medication Instructions Recorded Confirmed Type albuterol sulfate 2.5 mg INHALATION Q4-6H PRN 05/18/20 06/04/20 History enalapril maleate 10 mg tablet 10 mg PO DAILY 05/18/20 06/04/20 History fluticasone 500 mcg-salmeterol 50 1 inh INHALATION BID 05/18/20 06/04/20 History mcg/dose blistr powdr for inhalation theophylline 300 mg 300 mg PO Q12H cap 05/18/20 06/04/20 History capsule,extended release 24 hr Physical Exam Vital Signs: Vital Signs Temp Pulse Resp BP Pulse Ox 06/08/20 17:00 99.7 F 87 24 H 110/51 L 89 L 06/08/20 16:00 99.7 F 86 23 H 127/44 L 90 L 06/08/20 15:00 99.1 F 78 21 H 110/43 L 90 L 06/08/20 14:00 99.3 F 80 21 H 121/48 L 90 L 06/08/20 13:00 98.8 F 73 19 116/45 L 90 L 06/08/20 12:00 98.8 F 74 20 123/50 L 91 L 06/08/20 11:00 98.6 F 70 17 108/52 L 92 06/08/20 10:00 72 18 112/57 L 92 06/08/20 09:00 72 22 H 124/62 91 L 06/08/20 08:00 97.9 F 73 18 117/45 L 93 06/08/20 07:00 97.9 F 66 17 132/53 L 94 06/08/20 06:00 69 16 130/58 L 06/08/20 05:00 98.1 F 78 18 133/60 93 06/08/20 04:00 98.1 F 84 20 141/68 H 92 06/08/20 03:00 97.9 F 78 21 H 115/54 L 93 06/08/20 02:00 77 17 139/62 93 06/08/20 01:00 97.9 F 83 19 162/75 H 93 06/08/20 00:00 97.7 F 84 21 H 155/74 H 92 06/07/20 23:35 97.5 F 81 17 159/66 H 94 06/07/20 22:00 97.9 F 80 16 142/64 H 94 06/07/20 21:00 97.9 F 80 20 153/67 H 95 06/07/20 20:00 98.4 F 86 20 144/70 H 92 06/07/20 19:00 98.8 F 86 20 141/67 H 93 06/07/20 18:00 99.3 F 89 21 H 144/67 H 93 Body Mass Index 28.2 General: Resp Other: vented Cardio Rate: regular rate and tachycardic Rhythm: regular rhythm GI Palpation (GI): Soft to palpation and nontender Percussion: Yes normal to percussion Auscultation: normal bowel sounds General: Yes no CVA tenderness Back/Spine/Pelvis Back: no CVA tenderness Skin General skin exam: no rashes or lesions noted Neuro Cognition (Neuro): normal cognition Extrem General: Yes normal to inspection and Yes no pedal edema Results Lab Results Result Diagrams: 06/08/20 05:21 06/08/20 05:21 Lab results: Chemistry 06/06/20 06/07/20 06/08/20 06:12 05:41 05:21 Sodium 139 140 137 Potassium 4.5 4.4 4.7 Carbon Dioxide 27 27 25 BUN 26 H 26 H 44 H D Creatinine 0.74 0.72 0.91 Calcium 7.4 L 7.4 L 7.1 L Phosphorus 4.7 H Hematology 06/06/20 06/06/20 06/07/20 06:12 13:09 05:41 WBC 13.3 H 12.6 H Cancelled Hgb 12.6 L 12.7 L Cancelled Plt Count 317 289 Cancelled 06/07/20 06/08/20 05:41 05:21 WBC 10.2 9.6 Hgb 12.2 L 11.0 L Plt Count 297 290 Urinalysis 06/07/20 12:53 Urine Color YELLOW Urine Appearance CLEAR Urine pH 6.0 Ur Specific [place] 1.025 Urine Protein NEG Urine Glucose (UA) 100 H Urine Ketones 5 Urine Blood NEG Urine Nitrite NEG Ur Leukocyte Esterase NEG Assessment and Plan (1) COVID-19: Problem details: He has COVID and COPD exacerbation Status: Acute (2) COPD exacerbation: Status: Acute Doxycycline for 5 days,COPD and finish Remdesivir and steroids Severe Resp Failure COVID Lung and risk of DEE. At this time renalfucn remains preserved. Incr Bun/Cr ratiod/t steroids REC: UA and spot urine studies, avoid NTOXIns; will follow with ICU team
--- NOTE | 2020-06-08 18:33 | P.PNCC_ITS ---
Subjective Subjective Date of Service: 06/08/20 Interval History: Mr. Rodriguez was transferred to the ICU yesterday after being intubated on IMC because of COVID-19 pneumonia with acute respiratory failure. The patient is a 74-year-old male with past medical history of COPD and hypertension. He?s a former smoker, lives at home. The patient presented to the ED on June 04 c/o SOB x 2 days, associated with wheezing, sputum production, fever, and loss of appetite. On arrival to the ED, he was tachypneic, with room air Sat 40?s. Sat gulshan to 96-100% on non- rebreather face mask, with no increased WOB. ABG on 6LNC (?) showed 7.42/38/105/0, BUN/creat were 39/1.2 (baseline 0.9), lactate was 3.4, LDH 498, and COVID-19 PCR positive. CXR showed bilateral multifocal pneumonia. CT ang iogram was negative for PE, and showed extensive ground-glass opacification throughout the lungs (suggesting very advanced COVID). He was admitted to Medicine and tx with Decadron, fluids, and Zithromax. Remdesivir was started. On Jun 06 his oxygenation worsened and HFNC was added. He was seen by Dr. Delgado, but the patient declined tx to ICU, felt he didn?t need it. He was started on Ceftriaxone and full dose bid Lovenox. Yesterday morning, his oxygenation worsened and he agreed to intubation. He was intubated on IMC and transferred to ICU. After arrival to ICU, a CVL was placed. He was put on PCV. He required 95% oxygen to achieve a sat of 89%. He was started on the EVVT COVID protocol, including high dose solumedrol, high dose melatonin, Vit D, Thiamine, atorvastatin, magnesium, and high dose Pepcid Over the day and last night and this morning, we were able to get his FiO2 down to 70%. He?s sedated on propfol @ 45ug. See Vital Signs below. On the ventilator, AC/PC down to 14, insp press down to 14, peep 12, 100%, Sat was 90%, Vt 510, Peak inspiratory pressure low 30s. No JVD at 30?. No edema. LABORATORY DATA: As below. Notably, Central venous gas this morning showed 7.39/44. White count is down. D-dimer is up to 5000. BUN and creatinine up to 44/0.9. Random glucose up to 452 on the high-dose Solu-Medrol. Ferritin 1329, CRP 31, albumin 2.3. MICROBIOLOGY: Sputum g stain post intubation showed 2+ polys, 1+ Gram-positive cocci. Negative culture. IMPRESSION: 1. Late stage bilat COVID-19 pneumonia. Continue treatment as above. The hospital does not carry ivermectin. 2. Acute hypoxemic respiratory failure. 2? to the above 3. Acute kidney injury. Resolved. 4. ID. No hard evidence of bacterial superinfection, other than the PCT. We will continue the doxycycline. Check MRSA nasal swab 5. DEE. He may be a bit dry. Gentle hydration. Renal consult. 6. Very high D-dimer level. Started yesterday on bid Lovenox. Follow. 7. Hyperglycemia. On insulin drip. Check daily D-dimer, ferritin, CRP, magnesium, and procalcitonin. Prognosis at this point is very poor. I spoke to the HCP, Daughter Maral Rodriguez, , at some length by telephone, discussed condition, tx, and prognosis. Critical care time: 70 min. Physical Exam Vital Signs: Vital Signs: Vital Signs Temp Pulse Resp BP Pulse Ox 06/08/20 18:00 99.7 F 88 22 H 125/56 L 91 L 06/08/20 17:00 99.7 F 87 24 H 110/51 L 89 L 06/08/20 16:00 99.7 F 86 23 H 127/44 L 90 L 06/08/20 15:00 99.1 F 78 21 H 110/43 L 90 L 06/08/20 14:00 99.3 F 80 21 H 121/48 L 90 L 06/08/20 13:00 98.8 F 73 19 116/45 L 90 L 06/08/20 12:00 98.8 F 74 20 123/50 L 91 L 06/08/20 11:00 98.6 F 70 17 108/52 L 92 06/08/20 10:00 72 18 112/57 L 92 06/08/20 09:00 72 22 H 124/62 91 L 06/08/20 08:00 97.9 F 73 18 117/45 L 93 06/08/20 07:00 97.9 F 66 17 132/53 L 94 06/08/20 06:00 69 16 130/58 L 06/08/20 05:00 98.1 F 78 18 133/60 93 06/08/20 04:00 98.1 F 84 20 141/68 H 92 06/08/20 03:00 97.9 F 78 21 H 115/54 L 93 06/08/20 02:00 77 17 139/62 93 06/08/20 01:00 97.9 F 83 19 162/75 H 93 06/08/20 00:00 97.7 F 84 21 H 155/74 H 92 06/07/20 23:35 97.5 F 81 17 159/66 H 94 06/07/20 22:00 97.9 F 80 16 142/64 H 94 06/07/20 21:00 97.9 F 80 20 153/67 H 95 06/07/20 20:00 98.4 F 86 20 144/70 H 92 06/07/20 19:00 98.8 F 86 20 141/67 H 93 Body Mass Index 28.2 Objective Data Labs CBC & Chem 7: 06/08/20 05:21 06/08/20 05:21 Labs: Laboratory Results - last 24 hr 06/08/20 06/08/20 06/08/20 05:20 05:20 05:20 WBC RBC Hgb Hct MCV MCH MCHC RDW Plt Count MPV Immature Gran % (Auto) Neut % (Auto) Lymph % (Auto) [place] % (Auto) Eos % (Auto) Baso % (Auto) Lymph # (Auto) [place] # (Auto) Eos # (Auto) Baso # (Auto) Abs Immat Gran (auto) Absolute Neuts (auto) Absolute Nucleated RBC Nucleated RBC % (auto) Smear Tech's Comments D-Dimer 5001 VBG pH VBG pCO2 VBG Oxygen Liters/Min VBG pO2 VBG HCO3 VBG O2 Saturation VBG Base Excess Sodium Potassium Chloride Carbon Dioxide Anion Gap BUN Creatinine Estim Creat Clear Calc Estimated GFR POC Glucose Random Glucose Lactic Acid 1.5 Calcium Phosphorus Magnesium Ferritin Cancelled Total Bilirubin AST ALT Alkaline Phosphatase C-Reactive Protein Total Protein Albumin Procalcitonin SARS-CoV-2 IgG Ab 06/08/20 06/08/20 06/08/20 05:20 05:20 05:21 WBC 9.6 RBC 3.69 L Hgb 11.0 L Hct 34.6 L MCV 93.8 MCH 29.8 MCHC 31.8 RDW 13.3 Plt Count 290 MPV 12.1 Immature Gran % (Auto) 4.8 H Neut % (Auto) 88.3 H Lymph % (Auto) 5.4 L [place] % (Auto) 1.3 L Eos % (Auto) 0.0 Baso % (Auto) 0.2 Lymph # (Auto) 0.5 L [place] # (Auto) 0.1 Eos # (Auto) 0.0 Baso # (Auto) 0.0 Abs Immat Gran (auto) 0.46 H Absolute Neuts (auto) 8.5 H Absolute Nucleated RBC 0.000 Nucleated RBC % (auto) 0.0 Smear Tech's Comments VERIFIED D-Dimer VBG pH 7.39 VBG pCO2 44 VBG Oxygen Liters/Min Not Reportable VBG pO2 47 VBG HCO3 26 VBG O2 Saturation 78.1 VBG Base Excess 1.2 Sodium Potassium Chloride Carbon Dioxide Anion Gap BUN Creatinine Estim Creat Clear Calc Estimated GFR POC Glucose Random Glucose Lactic Acid Calcium Phosphorus Magnesium Ferritin Total Bilirubin AST ALT Alkaline Phosphatase C-Reactive Protein Total Protein Albumin Procalcitonin 4.40 SARS-CoV-2 IgG Ab 06/08/20 06/08/20 06/08/20 05:21 05:21 08:35 WBC RBC Hgb Hct MCV MCH MCHC RDW Plt Count MPV Immature Gran % (Auto) Neut % (Auto) Lymph % (Auto) [place] % (Auto) Eos % (Auto) Baso % (Auto) Lymph # (Auto) [place] # (Auto) Eos # (Auto) Baso # (Auto) Abs Immat Gran (auto) Absolute Neuts (auto) Absolute Nucleated RBC Nucleated RBC % (auto) Smear Tech's Comments D-Dimer VBG pH VBG pCO2 VBG Oxygen Liters/Min VBG pO2 VBG HCO3 VBG O2 Saturation VBG Base Excess Sodium 137 Potassium 4.7 Chloride 103 Carbon Dioxide 25 Anion Gap 14 BUN 44 H D Creatinine 0.91 Estim Creat Clear Calc 67.1 Estimated GFR > 60 POC Glucose 453 H* Random Glucose 452 H* Lactic Acid Calcium 7.1 L Phosphorus 4.7 H Magnesium 3.2 H Ferritin 1329 H Total Bilirubin 0.5 AST 23 ALT 26 Alkaline Phosphatase 110 C-Reactive Protein 30.98 H Total Protein 5.1 L Albumin 2.3 L D Procalcitonin SARS-CoV-2 IgG Ab Positive 06/08/20 06/08/20 06/08/20 11:16 14:01 16:20 WBC RBC Hgb Hct MCV MCH MCHC RDW Plt Count MPV Immature Gran % (Auto) Neut % (Auto) Lymph % (Auto) [place] % (Auto) Eos % (Auto) Baso % (Auto) Lymph # (Auto) [place] # (Auto) Eos # (Auto) Baso # (Auto) Abs Immat Gran (auto) Absolute Neuts (auto) Absolute Nucleated RBC Nucleated RBC % (auto) Smear Tech's Comments D-Dimer VBG pH VBG pCO2 VBG Oxygen Liters/Min VBG pO2 VBG HCO3 VBG O2 Saturation VBG Base Excess Sodium Potassium Chloride Carbon Dioxide Anion Gap BUN Creatinine Estim Creat Clear Calc Estimated GFR POC Glucose 398 H* 335 H 274 H Random Glucose Lactic Acid Calcium Phosphorus Magnesium Ferritin Total Bilirubin AST ALT Alkaline Phosphatase C-Reactive Protein Total Protein Albumin Procalcitonin SARS-CoV-2 IgG Ab Microbiology Microbiology Results: Microbiology 06/07/20 08:25 Sputum - Suctioned Gram Stain - Final 06/07/20 08:25 Sputum - Suctioned Sputum Culture - Preliminary Normal so far. 06/04/20 17:18 Blood - Venous Blood Culture - Preliminary No growth after 48 hours. 06/04/20 17:18 Blood - Venous Blood Culture - Preliminary No growth after 48 hours. Progress Note: A&P Time Spent With Patient Time: Total time spent is greater than 50% in coordination of care (as documented) at patient's floor/unit and/or counseling patient: Total time spent with greater than 50% in coordination of care (as documented) at patient's floor/unit and/or counseling patient:: 0 Critical Care Time Critical Care Time (minutes): 60
[2020-06-08 18:43] LABS: Glucose, Whole Blood 233 mg/dL (60-115)
[2020-06-08 20:54] LABS: Glucose, Whole Blood 312 mg/dL (60-115)
[2020-06-08] MEDS: Melatonin 3 MG TABLET 9 MG PO (21:19)
[2020-06-08] MEDS: Remdesivir 100 MG in 0.9 % Sodium Chloride 230 ML 125 MG IV (21:35)
[2020-06-08 22:46] LABS: Glucose, Whole Blood 293 mg/dL (60-115)
[2020-06-09] VITALS (32 sets, daily range): BP systolic 113–148; BP diastolic 44–71; PULSE 66–87; RESP 15–24; TEMP 36.3–37.1; O2SAT 86–95
[2020-06-09 00:36] LABS: Glucose, Whole Blood 291 mg/dL (60-115)
[2020-06-09] MEDS: methylPREDNISolone Sod Succ/PF 125 MG/2 ML VIAL 80 MG IVPUSH ×2 (01:41→11:48)
[2020-06-09] MEDS: propofoL 1,000 MG/100 ML VIAL 20.79 MG IVCONT ×6 (01:41→23:54)
[2020-06-09] MEDS: Enoxaparin Sodium 80 MG/0.8 ML SYRINGE 75 MG SUBCUT ×2 (01:42→11:49)
[2020-06-09] MEDS: 0.9 % Sodium Chloride Flush 3 ML SYRINGE IVFLUSH ×3 (01:42→15:21)
[2020-06-09 02:02] LABS: Glucose, Whole Blood 252 mg/dL (60-115)
[2020-06-09 03:33] LABS: Glucose, Whole Blood 191 mg/dL (60-115)
[2020-06-09] MEDS: Insulin Regular/NS 100 UNIT/100 ML PLAST..BAG IVCONT (05:03)
[2020-06-09 05:19] LABS: Glucose, Whole Blood 199 mg/dL (60-115)
[2020-06-09 06:30] LABS: Base Excess VBG 0.5 mmol/L; HCO3 VBG 26 mmol/L; PCO2 VBG 45 mmhg; PO2 VBG 48 mmhg; pH VBG 7.38 (7.32-7.43)
[2020-06-09 06:31] LABS: Oxygen Saturation VBG 80.8 %
[2020-06-09 07:04] LABS: Basophils Percent Auto 0.2 % (0-2); Hematocrit 33.9 % (42-52); Hemoglobin 10.7 g/dl (14.0-18.0); Imm Gran Abs Auto 1.05 X10*3/uL (0.00-0.03); Imm Gran Pct Auto 4.8 % (0.0-0.4); Lymphocytes Absolute Auto 0.5 X10*3/uL (1.2-4.9); MANUAL DIFF FLAG SCAN; Mean Corpuscular HGB Conc 31.6 g/dl (31.0-36.0); Mean Corpuscular Hemoglobin 29.6 pg (27.0-33.0); Mean Corpuscular Volume 93.6 fL (80-98); Mean Platelet Volume 12.5 fL (9.4-12.4); Monocytes Absolute Auto 0.4 X10*3/uL (0.1-1.2); Monocytes Percent Auto 1.6 % (2-11); Neutrophils Absolute Auto 20.1 X10*3/uL (2.0-8.3); Neutrophils Percent Auto 91.4 % (45-73); Platelet Count 376 X10*3/uL (160-400); Red Blood Count 3.62 X10*6/uL (4.60-5.80); Red Cell Distribution Width 13.5 % (11.0-16.0); SCAN SMEAR FLAG 1
[2020-06-09 07:07] LABS: Lactate Dehydrogenase 453 U/L (118-273)
[2020-06-09 07:10] LABS: Alanine Aminotransferase 25 U/L (0-40); Albumin Level 2.3 g/dL (3.5-5.0); Alkaline Phosphatase 104 U/L (39-117); Anion Gap 14 (12-20); Aspartate Amino Transferase 19 U/L (5-37); Bilirubin Total 0.3 mg/dL (0.0-1.0); Blood Urea Nitrogen 53 mg/dL (9-16); C Reactive Protein 17.76 mg/dL (< or = 0.50); Calcium 7.1 mg/dL (8.4-10.2); Carbon Dioxide 27 mmol/L (22-29); Chloride 109 mmol/L (96-108); Creatinine Clr Calc Pharmacy 71.9; Estimated Glomerular Filt Rate > 60; Glucose Random 223 mg/dL (60-115); Magnesium 3.5 mg/dL (1.6-2.6); Phosphorus 3.4 mg/dL (2.7-4.5); Potassium 4.7 mmol/l (3.3-5.1); Sodium 145 mmol/L (135-145); Total Protein 5.1 g/dL (6.5-8.0)
[2020-06-09] MEDS: Atorvastatin Calcium 80 MG TABLET PO (07:25)
[2020-06-09] MEDS: Famotidine 20 MG TABLET 40 MG PO ×2 (07:25→20:13)
[2020-06-09 07:33] LABS: Ferritin 1307 ng/mL (20-250)
[2020-06-09 07:52] LABS: Procalcitonin 3.08 ng/mL
[2020-06-09 07:55] LABS: Glucose, Whole Blood 227 mg/dL (60-115)
[2020-06-09 08:35] LABS: SLIDE REVIEW VERIFIED
[2020-06-09] MEDS: Chlorhexidine Gluc Oral Rinse 15 ML MOUTHWASH BUCCAL ×3 (09:00→20:13)
[2020-06-09] MEDS: Sodium Chloride 0.45 % 1,000 ML 400 ML IVCONT (09:01)
[2020-06-09] MEDS: Albuterol/Iprat 2.5/0.5MG 3 ML AMPUL.NEB INHALE ×2 (09:13→15:32)
[2020-06-09 09:14] LABS: MRSA Nasal PCR NEGATIVE (Negative); SA Nasal PCR POSITIVE (Negative)
--- NOTE | 2020-06-09 11:04 | MHC.CLN ---
F/U PT TOLERATING TF PROMOTE AT MAX GOAL RATE 60CC/HR WITH 120CC FREE WATER Q SHIFT PROVIDES 1440KCALS (1989KCALS WITH SEDATION; 29KCALS/KG), 90G PROTEIN (1.3G/KG), 1568CC TOTAL WATER FROM FORMULA AND FLUSHES TF AND FLUSHES NOT MEETING ESTIMATED FLUID NEEDS IF MORE FREE WATER NEEDED; RECOMMEND 240CC Q 6HRS TO PROVIDE 2168CC TOTAL WATER FROM FORMULA AND FLUSHES (32CC/KG) MONITOR RESIDUALS, TOLERANCE AND LYTES
--- NOTE | 2020-06-09 11:21 | PM.PNNEP ---
Subjective Subjective Interval history: Seen and examined. Events noted reamins on vet Now on IVF to avoid DEE/dehydration Physical Exam Vital Signs: Vital Signs: Vital Signs Temp Pulse Resp BP Pulse Ox 06/09/20 10:00 66 15 127/47 L 06/09/20 09:00 73 18 117/47 L 94 06/09/20 08:00 98.4 F 66 15 136/60 95 06/09/20 07:00 98.6 F 72 19 132/61 95 06/09/20 06:00 98.8 F 68 16 113/44 L 92 06/09/20 05:00 98.6 F 69 15 134/59 L 93 06/09/20 04:00 98.2 F 68 16 134/58 L 93 06/09/20 03:00 98.6 F 72 17 132/57 L 92 06/09/20 02:00 98.6 F 78 19 130/55 L 93 06/09/20 01:00 98.8 F 68 18 121/49 L 93 06/09/20 00:00 98.6 F 70 16 117/48 L 92 06/08/20 23:00 99.9 F 76 17 119/47 L 92 06/08/20 22:00 99.9 F 86 21 H 122/49 L 90 L 06/08/20 21:00 99.8 F 80 19 119/54 L 91 L 06/08/20 20:00 99.7 F 79 18 124/54 L 91 L 06/08/20 19:00 99.7 F 78 19 135/62 90 L 06/08/20 18:00 99.7 F 88 22 H 125/56 L 91 L 06/08/20 17:00 99.7 F 87 24 H 110/51 L 89 L 06/08/20 16:00 99.7 F 86 23 H 127/44 L 90 L 06/08/20 15:00 99.1 F 78 21 H 110/43 L 90 L 06/08/20 14:00 99.3 F 80 21 H 121/48 L 90 L 06/08/20 13:00 98.8 F 73 19 116/45 L 90 L 06/08/20 12:00 98.8 F 74 20 123/50 L 91 L Body Mass Index 28.2 General: Const: Nutritional Appearance: average body habitus HENMT: Head: Yes normal to inspection Resp: Other: vented Effort & Inspection: audible wheezes and respiratory distress ( Decreased breath sounds diffusely) Auscultation: rhonchi and wheezes Cardio: Jugular venous distension: no JVD Rate: regular rate and tachycardic Rhythm: regular rhythm GI: Inspection: Yes normal to inspection Palpation (GI): Soft to palpation and nontender Auscultation: normal bowel sounds Skin: General skin exam: no rashes or lesions noted Neuro: Cognition (Neuro): normal cognition Extrem: General: Yes normal to inspection and Yes no pedal edema Assessment & Plan Assessment and plan (1) COVID-19: Problem details: He has COVID and COPD exacerbation Status: Acute (2) COPD exacerbation: Status: Acute Assessment and Plan: 1. COVID Resp Failure cont on Vent support FiO2 70% 2. Incr Bun/Cr: d/t steroids and ques IV vol depletion 3. Vol status: renal func preserved but at definite risk for DEE d/t COVID and cytokine ATN injury and thus need to keep adequately hydrated REC: cont IVF and monitor UOP/renal func; avoid NToxins Time Spent With Patient Time: Total time spent is greater than 50% in coordination of care (as documented) at patient's floor/unit and/or counseling patient:
[2020-06-09] MEDS: cefTRIAXone sodium 1 GM in 0.9 % Sodium Chloride 50 ML IV (11:48)
[2020-06-09] MEDS: Sodium Chloride 0.45 % 1,000 ML 100 ML IVCONT ×2 (11:48→20:31)
[2020-06-09] MEDS: Thiamine HCL 200 MG in 0.9 % Sodium Chloride 100 ML 204 MG IV ×2 (11:50→23:55)
[2020-06-09 12:16] LABS: Glucose, Whole Blood 264 mg/dL (60-115)
--- NOTE | 2020-06-09 12:41 | PM.CCPN ---
Subjective Subjective Date of Service: 06/09/20 Interval History: Mr. Rodriguez was transferred to the ICU on Jun 07 after being intubated on IMC because of COVID-19 pneumonia with acute respiratory failure. The patient is a 74-year-old male with past medical history of COPD and hypertension. He?s a former smoker, lives at home. The patient presented to the ED on June 04 c/o SOB x 2 days, associated with wheezing, sputum production, fever, and loss of appetite. On arrival to the ED, he was tachypneic, with room air Sat 40?s. Sat gulshan to 96-100% on non-rebreather face mask, with no increased WOB. ABG on 6LNC (?) showed 7.42/38/105/0, BUN/creat were 39/1.2 (baseline 0.9), lactate was 3.4, LDH 498, and COVID-19 PCR positive. CXR showed bilateral multifocal pneumonia. CT angiogram was negative for PE, and showed extensive ground-glass opacification throughout the lungs (suggesting very advanced COVID). He was admitted to Medicine and tx with Decadron, fluids, and Zithromax. Remdesivir was started. On Jun 06 his oxygenation worsened and HFNC was added. He was seen by Dr. Delgado, but the patient declined tx to ICU, felt he didn?t need it. He was started on Ceftriaxone and full dose bid Lovenox. The next morning, his oxygenation worsened and he agreed to intubation. He was intubated on IMC and transferred to ICU. After arrival to ICU, a CVL was placed. He was put on PCV. He required 95% oxygen to achieve a sat of 89%. He was started on the EVAL COVID protocol, including high dose solumedrol, high dose melatonin, Vit D, Thiamine, atorvastatin, magnesium, and high dose Pepcid Since then we?ve been able to slowly wean his FiO2 and ventilator support. This morning he?s well sedated on propofol @ 45ug. See Vital Signs below. He?s on Levophed 0.05ug. On the ventilator, AC/PC 14, with insp press at 20, Vt is up to 650cc. On 100%/+12, Sat is up to 94%, RR is 25, Ve 10.3L, PiP low 30s. LABORATORY DATA: As below. Notably, Central venous gas this morning showed 7.38/45. White count spiked to 22. BUN and creatinine up to 53/0.8. Random glucose down to the 220 range on insulin gtt at 8u/hr, on the high-dose Solu-Medrol. Ferritin unchanged, CRP down to 17, albumin 2.3. Procalcitonin down to 3.0. MICROBIOLOGY: Sputum g stain post intubation showed 2+ polys, 1+ Gram-positive cocci. Negative culture. IMPRESSION: 1. Late stage bilat COVID-19 pneumonia. Continue treatment as above. Showing significant improvement in oxygenation and compliance. Able to cut his insp press to 16, and his FiO2. 2. Acute hypoxemic respiratory failure. 2? to the above 3. Acute kidney injury. Looks hypovolemic. Started ? NS. 4. ID. WBC spike today. Afebrile. Procalcitonin is down. MRSA PCR swab was negative. Oxygenation is improving. We?ll continue the doxycycline 2 more days. 5. Very high D-dimer. Started on bid Lovenox. Follow daily. 6. Hyperglycemia. 2? steroids. On insulin drip. Check daily D-dimer, ferritin, CRP, magnesium, and procalcitonin. Prognosis is improving. I spoke to the HCP yesterday (Daughter Maral Rodriguez, ), discussed condition, tx, and prognosis. Critical care time: 50 min. Physical Exam Vital Signs: Vital Signs: Vital Signs Temp Pulse Resp BP Pulse Ox 06/09/20 12:00 97.7 F 73 17 132/55 L 93 06/09/20 11:00 97.7 F 73 17 133/55 L 94 06/09/20 10:00 66 15 127/47 L 06/09/20 09:00 73 18 117/47 L 94 06/09/20 08:00 98.4 F 66 15 136/60 95 06/09/20 07:00 98.6 F 72 19 132/61 95 06/09/20 06:00 98.8 F 68 16 113/44 L 92 06/09/20 05:00 98.6 F 69 15 134/59 L 93 06/09/20 04:00 98.2 F 68 16 134/58 L 93 06/09/20 03:00 98.6 F 72 17 132/57 L 92 06/09/20 02:00 98.6 F 78 19 130/55 L 93 06/09/20 01:00 98.8 F 68 18 121/49 L 93 06/09/20 00:00 98.6 F 70 16 117/48 L 92 06/08/20 23:00 99.9 F 76 17 119/47 L 92 06/08/20 22:00 99.9 F 86 21 H 122/49 L 90 L 06/08/20 21:00 99.8 F 80 19 119/54 L 91 L 06/08/20 20:00 99.7 F 79 18 124/54 L 91 L 06/08/20 19:00 99.7 F 78 19 135/62 90 L 06/08/20 18:00 99.7 F 88 22 H 125/56 L 91 L 06/08/20 17:00 99.7 F 87 24 H 110/51 L 89 L 06/08/20 16:00 99.7 F 86 23 H 127/44 L 90 L 06/08/20 15:00 99.1 F 78 21 H 110/43 L 90 L 06/08/20 14:00 99.3 F 80 21 H 121/48 L 90 L 06/08/20 13:00 98.8 F 73 19 116/45 L 90 L Body Mass Index 28.2 Objective Data Labs CBC & Chem 7: 06/09/20 05:50 06/09/20 05:50 Labs: Laboratory Results - last 24 hr 06/08/20 06/08/20 06/08/20 14:01 16:20 17:58 WBC RBC Hgb Hct MCV MCH MCHC RDW Plt Count MPV Immature Gran % (Auto) Neut % (Auto) Lymph % (Auto) [place] % (Auto) Eos % (Auto) Baso % (Auto) Lymph # (Auto) [place] # (Auto) Eos # (Auto) Baso # (Auto) Abs Immat Gran (auto) Absolute Neuts (auto) Absolute Nucleated RBC Nucleated RBC % (auto) Smear Tech's Comments PT INR D-Dimer VBG pH VBG pCO2 VBG Oxygen Liters/Min VBG pO2 VBG HCO3 VBG O2 Saturation VBG Base Excess Sodium Potassium Chloride Carbon Dioxide Anion Gap BUN Creatinine Estim Creat Clear Calc Estimated GFR POC Glucose 335 H 274 H 233 H Random Glucose Calcium Phosphorus Magnesium Ferritin Total Bilirubin AST ALT Alkaline Phosphatase Lactate Dehydrogenase C-Reactive Protein Total Protein Albumin Procalcitonin Nasal Screen MRSA (PCR) Nasal S. aureus Screen Nasal MRSA/S.aureus Interp 06/08/20 06/08/20 06/09/20 20:28 22:40 00:27 WBC RBC Hgb Hct MCV MCH MCHC RDW Plt Count MPV Immature Gran % (Auto) Neut % (Auto) Lymph % (Auto) [place] % (Auto) Eos % (Auto) Baso % (Auto) Lymph # (Auto) [place] # (Auto) Eos # (Auto) Baso # (Auto) Abs Immat Gran (auto) Absolute Neuts (auto) Absolute Nucleated RBC Nucleated RBC % (auto) Smear Tech's Comments PT INR D-Dimer VBG pH VBG pCO2 VBG Oxygen Liters/Min VBG pO2 VBG HCO3 VBG O2 Saturation VBG Base Excess Sodium Potassium Chloride Carbon Dioxide Anion Gap BUN Creatinine Estim Creat Clear Calc Estimated GFR POC Glucose 312 H 293 H Random Glucose Calcium Phosphorus Magnesium Ferritin Total Bilirubin AST ALT Alkaline Phosphatase Lactate Dehydrogenase C-Reactive Protein Total Protein Albumin Procalcitonin Nasal Screen MRSA (PCR) NEGATIVE Nasal S. aureus Screen POSITIVE A Nasal MRSA/S.aureus Interp SEE NOTE 06/09/20 06/09/20 06/09/20 00:31 01:46 03:23 WBC RBC Hgb Hct MCV MCH MCHC RDW Plt Count MPV Immature Gran % (Auto) Neut % (Auto) Lymph % (Auto) [place] % (Auto) Eos % (Auto) Baso % (Auto) Lymph # (Auto) [place] # (Auto) Eos # (Auto) Baso # (Auto) Abs Immat Gran (auto) Absolute Neuts (auto) Absolute Nucleated RBC Nucleated RBC % (auto) Smear Tech's Comments PT INR D-Dimer VBG pH VBG pCO2 VBG Oxygen Liters/Min VBG pO2 VBG HCO3 VBG O2 Saturation VBG Base Excess Sodium Potassium Chloride Carbon Dioxide Anion Gap BUN Creatinine Estim Creat Clear Calc Estimated GFR POC Glucose 291 H 252 H 191 H Random Glucose Calcium Phosphorus Magnesium Ferritin Total Bilirubin AST ALT Alkaline Phosphatase Lactate Dehydrogenase C-Reactive Protein Total Protein Albumin Procalcitonin Nasal Screen MRSA (PCR) Nasal S. aureus Screen Nasal MRSA/S.aureus Interp 06/09/20 06/09/20 06/09/20 05:08 05:50 05:50 WBC 22.0 H RBC 3.62 L Hgb 10.7 L Hct 33.9 L MCV 93.6 MCH 29.6 MCHC 31.6 RDW 13.5 Plt Count 376 D MPV 12.5 H Immature Gran % (Auto) 4.8 H Neut % (Auto) 91.4 H Lymph % (Auto) 2.0 L [place] % (Auto) 1.6 L Eos % (Auto) 0.0 Baso % (Auto) 0.2 Lymph # (Auto) 0.5 L [place] # (Auto) 0.4 Eos # (Auto) 0.0 Baso # (Auto) 0.0 Abs Immat Gran (auto) 1.05 H Absolute Neuts (auto) 20.1 H Absolute Nucleated RBC 0.000 Nucleated RBC % (auto) 0.0 Smear Tech's Comments VERIFIED PT Cancelled INR Cancelled D-Dimer Cancelled VBG pH VBG pCO2 VBG Oxygen Liters/Min VBG pO2 VBG HCO3 VBG O2 Saturation VBG Base Excess Sodium Potassium Chloride Carbon Dioxide Anion Gap BUN Creatinine Estim Creat Clear Calc Estimated GFR POC Glucose 199 H Random Glucose Calcium Phosphorus Magnesium Ferritin Total Bilirubin AST ALT Alkaline Phosphatase Lactate Dehydrogenase C-Reactive Protein Total Protein Albumin Procalcitonin Nasal Screen MRSA (PCR) Nasal S. aureus Screen Nasal MRSA/S.aureus Interp 06/09/20 06/09/20 06/09/20 05:50 05:50 05:50 WBC Cancelled RBC Cancelled Hgb Cancelled Hct Cancelled MCV Cancelled MCH Cancelled MCHC Cancelled RDW Cancelled Plt Count Cancelled MPV Cancelled Immature Gran % (Auto) Cancelled Neut % (Auto) Cancelled Lymph % (Auto) Cancelled [place] % (Auto) Cancelled Eos % (Auto) Cancelled Baso % (Auto) Cancelled Lymph # (Auto) Cancelled [place] # (Auto) Cancelled Eos # (Auto) Cancelled Baso # (Auto) Cancelled Abs Immat Gran (auto) Cancelled Absolute Neuts (auto) Cancelled Absolute Nucleated RBC Cancelled Nucleated RBC % (auto) Cancelled Smear Tech's Comments PT INR D-Dimer VBG pH VBG pCO2 VBG Oxygen Liters/Min VBG pO2 VBG HCO3 VBG O2 Saturation VBG Base Excess Sodium Cancelled 145 Potassium Cancelled 4.7 Chloride Cancelled 109 H Carbon Dioxide Cancelled 27 Anion Gap Cancelled 14 BUN Cancelled 53 H Creatinine Cancelled 0.85 Estim Creat Clear Calc Cancelled 71.9 Estimated GFR Cancelled > 60 POC Glucose Random Glucose Cancelled 223 H D Calcium Cancelled 7.1 L Phosphorus Cancelled 3.4 Magnesium Cancelled 3.5 H* Ferritin Cancelled 1307 H Total Bilirubin 0.3 AST 19 ALT 25 Alkaline Phosphatase 104 Lactate Dehydrogenase Cancelled 453 H C-Reactive Protein 17.76 H Total Protein 5.1 L Albumin 2.3 L Procalcitonin Nasal Screen MRSA (PCR) Nasal S. aureus Screen Nasal MRSA/S.aureus Interp 06/09/20 06/09/20 06/09/20 05:50 05:50 05:50 WBC RBC Hgb Hct MCV MCH MCHC RDW Plt Count MPV Immature Gran % (Auto) Neut % (Auto) Lymph % (Auto) [place] % (Auto) Eos % (Auto) Baso % (Auto) Lymph # (Auto) [place] # (Auto) Eos # (Auto) Baso # (Auto) Abs Immat Gran (auto) Absolute Neuts (auto) Absolute Nucleated RBC Nucleated RBC % (auto) Smear Tech's Comments PT INR D-Dimer Cancelled VBG pH VBG pCO2 VBG Oxygen Liters/Min VBG pO2 VBG HCO3 VBG O2 Saturation VBG Base Excess Sodium Potassium Chloride Carbon Dioxide Anion Gap BUN Creatinine Estim Creat Clear Calc Estimated GFR POC Glucose Random Glucose Calcium Phosphorus Magnesium Ferritin Cancelled Total Bilirubin AST ALT Alkaline Phosphatase Lactate Dehydrogenase C-Reactive Protein Cancelled Total Protein Albumin Procalcitonin 3.08 Nasal Screen MRSA (PCR) Nasal S. aureus Screen Nasal MRSA/S.aureus Interp 06/09/20 06/09/20 06/09/20 05:50 05:50 07:30 WBC RBC Hgb Hct MCV MCH MCHC RDW Plt Count MPV Immature Gran % (Auto) Neut % (Auto) Lymph % (Auto) [place] % (Auto) Eos % (Auto) Baso % (Auto) Lymph # (Auto) [place] # (Auto) Eos # (Auto) Baso # (Auto) Abs Immat Gran (auto) Absolute Neuts (auto) Absolute Nucleated RBC Nucleated RBC % (auto) Smear Tech's Comments PT INR D-Dimer VBG pH 7.38 VBG pCO2 45 VBG Oxygen Liters/Min TNP VBG pO2 48 VBG HCO3 26 VBG O2 Saturation 80.8 VBG Base Excess 0.5 Sodium Potassium Chloride Carbon Dioxide Anion Gap BUN Creatinine Estim Creat Clear Calc Estimated GFR POC Glucose 227 H Random Glucose Calcium Cancelled Phosphorus Magnesium Ferritin Total Bilirubin AST ALT Alkaline Phosphatase Lactate Dehydrogenase C-Reactive Protein Total Protein Albumin Procalcitonin Nasal Screen MRSA (PCR) Nasal S. aureus Screen Nasal MRSA/S.aureus Interp 06/09/20 11:55 WBC RBC Hgb Hct MCV MCH MCHC RDW Plt Count MPV Immature Gran % (Auto) Neut % (Auto) Lymph % (Auto) [place] % (Auto) Eos % (Auto) Baso % (Auto) Lymph # (Auto) [place] # (Auto) Eos # (Auto) Baso # (Auto) Abs Immat Gran (auto) Absolute Neuts (auto) Absolute Nucleated RBC Nucleated RBC % (auto) Smear Tech's Comments PT INR D-Dimer VBG pH VBG pCO2 VBG Oxygen Liters/Min VBG pO2 VBG HCO3 VBG O2 Saturation VBG Base Excess Sodium Potassium Chloride Carbon Dioxide Anion Gap BUN Creatinine Estim Creat Clear Calc Estimated GFR POC Glucose 264 H Random Glucose Calcium Phosphorus Magnesium Ferritin Total Bilirubin AST ALT Alkaline Phosphatase Lactate Dehydrogenase C-Reactive Protein Total Protein Albumin Procalcitonin Nasal Screen MRSA (PCR) Nasal S. aureus Screen Nasal MRSA/S.aureus Interp Microbiology Microbiology Results: Microbiology 06/07/20 08:25 Sputum - Suctioned Gram Stain - Final 06/07/20 08:25 Sputum - Suctioned Sputum Culture - Final 06/04/20 17:18 Blood - Venous Blood Culture - Preliminary No growth after 48 hours. 06/04/20 17:18 Blood - Venous Blood Culture - Preliminary No growth after 48 hours. Progress Note: A&P Time Spent With Patient Time: Total time spent is greater than 50% in coordination of care (as documented) at patient's floor/unit and/or counseling patient: Total time spent with greater than 50% in coordination of care (as documented) at patient's floor/unit and/or counseling patient:: 0 Critical Care Time Critical Care Time (minutes): 60
[2020-06-09 15:42] LABS: Glucose, Whole Blood 283 mg/dL (60-115)
[2020-06-09] MEDS: fentaNYL citrate/PF 100 MCG/2 ML VIAL IVPUSH (16:11)
[2020-06-09] MEDS: Insulin Regular/NS 100 UNIT/100 ML PLAST..BAG 10 UNIT IVCONT (17:59)
--- NOTE | 2020-06-09 18:36 | PC.NURSE ---
Sedation vacation started at 1500. Patient alert following commands at 15:15. Noted high pressure alarms, patient was bitting tube and appeared to be gagging. Bite block placed. Per MD 100 mcg Fentanyl IVP and propofol restarted at 45 mcg/kg/min. Plan to wean in the morning for possible extubation if all goes well tonight.
[2020-06-09] MEDS: Melatonin 3 MG TABLET 9 MG PO (20:12)
[2020-06-09] MEDS: Remdesivir 100 MG in 0.9 % Sodium Chloride 230 ML 125 MG IV (20:30)
[2020-06-09 21:06] LABS: Glucose, Whole Blood 299 mg/dL (60-115)
[2020-06-09 21:06] LABS: Glucose, Whole Blood 241 mg/dL (60-115)
[2020-06-10] VITALS (30 sets, daily range): BP systolic 96–149; BP diastolic 46–96; PULSE 60–83; RESP 17–30; TEMP 36.1–36.7; O2SAT 88–92
[2020-06-10 00:43] LABS: Glucose, Whole Blood 166 mg/dL (60-115)
[2020-06-10] MEDS: Enoxaparin Sodium 80 MG/0.8 ML SYRINGE 75 MG SUBCUT ×2 (01:17→13:15)
[2020-06-10] MEDS: methylPREDNISolone Sod Succ/PF 125 MG/2 ML VIAL 80 MG IVPUSH ×2 (01:18→13:16)
[2020-06-10] MEDS: 0.9 % Sodium Chloride Flush 3 ML SYRINGE IVFLUSH ×3 (01:18→15:17)
[2020-06-10] MEDS: Insulin Regular/NS 100 UNIT/100 ML PLAST..BAG 10 UNIT IVCONT (01:19)
[2020-06-10 03:25] LABS: Glucose, Whole Blood 136 mg/dL (60-115)
[2020-06-10] MEDS: propofoL 1,000 MG/100 ML VIAL 20.79 MG IVCONT ×3 (05:40→22:00)
[2020-06-10 06:06] LABS: Glucose, Whole Blood 127 mg/dL (60-115)
[2020-06-10 06:20] LABS: Base Excess VBG 3.1 mmol/L; HCO3 VBG 29 mmol/L; PCO2 VBG 51 mmhg; PO2 VBG 61 mmhg; pH VBG 7.38 (7.32-7.43)
[2020-06-10] MEDS: Sodium Chloride 0.45 % 1,000 ML 100 ML IVCONT (06:20)
[2020-06-10 06:21] LABS: Hematocrit 33.8 % (42-52); Hemoglobin 10.6 g/dl (14.0-18.0); Mean Corpuscular HGB Conc 31.4 g/dl (31.0-36.0); Mean Corpuscular Hemoglobin 29.9 pg (27.0-33.0); Mean Corpuscular Volume 95.2 fL (80-98); Mean Platelet Volume 12.1 fL (9.4-12.4); Oxygen Saturation VBG 89.8 %; Platelet Count 384 X10*3/uL (160-400); Red Blood Count 3.55 X10*6/uL (4.60-5.80); Red Cell Distribution Width 13.8 % (11.0-16.0); White Blood Count 21.1 X10*3/uL (4.8-10.8)
[2020-06-10 06:42] LABS: Anion Gap 11 (12-20); Blood Urea Nitrogen 35 mg/dL (9-16); C Reactive Protein 8.44 mg/dL (< or = 0.50); Calcium 6.9 mg/dL (8.4-10.2); Carbon Dioxide 27 mmol/L (22-29); Chloride 110 mmol/L (96-108); Creatinine Clr Calc Pharmacy 88.5; Estimated Glomerular Filt Rate > 60; Glucose Random 130 mg/dL (60-115); Lactate Dehydrogenase 418 U/L (118-273); Phosphorus 3.3 mg/dL (2.7-4.5); Potassium 4.6 mmol/l (3.3-5.1); Sodium 143 mmol/L (135-145)
[2020-06-10 06:46] LABS: D Dimer 1866 NG/ML
[2020-06-10 07:00] LABS: Procalcitonin 1.38 ng/mL
[2020-06-10 07:02] LABS: Ferritin 986 ng/mL (20-250)
--- NOTE | 2020-06-10 08:43 | P.PNCC_ITS ---
Subjective Subjective Date of Service: 06/10/20 Interval History: Mr. Rodriguez was transferred to the ICU on Jun 07 after being intubated on IMC because of COVID-19 pneumonia with acute respiratory failure. The patient is a 74-year-old male with past medical history of COPD and hypertension. He?s a former smoker, lives at home. The patient presented to the ED on June 04 c/o SOB x 2 days, associated with wheezing, sputum production, fever, and loss of appetite. On arrival to the ED, he was tachypneic, with room air Sat 40?s. Sat gulshan to 96-100% on non- rebreather face mask, with no increased WOB. ABG on 6LNC (?) showed 7.42/38/105/0, BUN/creat were 39/1.2 (baseline 0.9), lactate was 3.4, LDH 498, and COVID-19 PCR positive. CXR showed bilateral multifocal pneumonia. CT an giogram was negative for PE, and showed extensive ground-glass opacification throughout the lungs (suggesting very advanced COVID). He was admitted to Medicine and tx with Decadron, fluids, and Zithromax. Remdesivir was started. On Jun 06 his oxygenation worsened and HFNC was added. He was seen by Dr. Delgado, but the patient declined tx to ICU, felt he didn?t need it. He was started on Ceftriaxone and full dose bid Lovenox. The next morning, his oxygenation worsened and he agreed to intubation. He was intubated on IMC and transferred to ICU. After arrival to ICU, a CVL was placed. He was put on PCV. He required 95% oxygen to achieve a sat of 89%. He was started on the [facility] COVID protocol, including high dose solumedrol, high dose melatonin, Vit D, Thiamine, atorvastatin, magnesium, and high dose Pepcid Since then we?ve been able to slowly wean his FiO2 and ventilator support. Yesterday, we did a propofol holiday and the patient woke up and was fully and appropriately interactive. This morning he?s well sedated on propofol @ 50ug. See Vital Signs below. He?s on Levophed 0.04ug. On the ventilator, AC/PC 14, press 16/12, 60% FiO2, RR is 22, PiP 30, Vt is 460cc, Ve 10L, SpO2 is 91%. We switched him over to PSV 18cm and he lasted 3hrs until he tired and his Vt and then Sat dropped off. LABORATORY DATA: As below. Notably, Central venous gas this morning showed 7.38/51. BUN and creatinine back down after rehydration yesterday. Random glucose down to the 130 range on insulin gtt at 9u/hr, on the high-dose Solu- Medrol. D-dimer, ferritin, CRP, and procalcitonin, all substantially decreased today. MICROBIOLOGY: Repeat sputum Gram stain from yesterday showed 1+ polys, 1+ Gram- positive cocci. Negative culture so far. IMPRESSION: 1. Late stage bilat COVID-19 pneumonia. Continue treatment as above. 2. Acute hypoxemic respiratory failure. 2? to the above. Showing significant improvement in oxygenation and compliance. Starting PSV trials. 3. Acute kidney injury. Numbers look better after rehydration with ? NS. 4. ID. WBC spike yesterday, but afebrile, procalcitonin is down. Sputum Gram stain is negative. MRSA PCR swab was negative. Oxygenation is improving. D/C ceftriaxone today. 5. Very high D-dimer. Started on bid Lovenox. Follow daily. 6. Hyperglycemia. 2? steroids. On insulin drip. (No evidence of sepsis.) Check daily D-dimer, ferritin, CRP, magnesium, and procalcitonin. Prognosis is improving. I spoke to the HCP (Daughter Maral Rodriguez, ) on Sunday, discussed condition, tx, and prognosis. Critical care time: 50 min. Physical Exam Vital Signs: Vital Signs: Vital Signs Temp Pulse Resp BP Pulse Ox 06/10/20 08:00 98.1 F 77 23 H 129/58 L 90 L 06/10/20 06:51 98.1 F 80 25 H 131/58 L 89 L 06/10/20 06:00 76 18 133/57 L 90 L 06/10/20 05:00 79 22 H 125/67 90 L 06/10/20 04:00 97.5 F 78 24 H 129/65 90 L 06/10/20 03:00 97 F 80 26 H 132/62 90 L 06/10/20 02:00 82 22 H 138/65 92 06/10/20 01:00 97.5 F 79 23 H 146/59 H 91 L 06/10/20 00:00 97.3 F 83 24 H 149/61 H 90 L 06/09/20 22:58 97.7 F 82 21 H 142/69 H 93 06/09/20 22:00 97.7 F 83 22 H 139/71 92 06/09/20 21:00 97.7 F 77 22 H 122/62 92 06/09/20 19:43 80 24 H 142/60 H 91 L 06/09/20 18:59 97.3 F 79 22 H 148/64 H 89 L 06/09/20 18:00 98.1 F 87 18 124/54 L 91 L 06/09/20 17:00 98.1 F 72 15 134/59 L 91 L 06/09/20 16:11 18 06/09/20 15:59 98.2 F 77 16 125/59 L 91 L 06/09/20 15:00 97.9 F 85 16 136/54 L 86 L 06/09/20 14:00 77 22 H 125/52 L 87 L 06/09/20 13:00 78 21 H 133/51 L 88 L 06/09/20 12:00 97.7 F 73 17 132/55 L 93 06/09/20 11:00 97.7 F 73 17 133/55 L 94 06/09/20 10:00 66 15 127/47 L 06/09/20 09:00 73 18 117/47 L 94 Body Mass Index 28.2 Objective Data Labs CBC & Chem 7: 06/11/20 04:20 06/11/20 04:20 Labs: Laboratory Results - last 24 hr 06/09/20 06/09/20 06/09/20 00:27 05:50 11:55 WBC RBC Hgb Hct MCV MCH MCHC RDW Plt Count MPV Absolute Nucleated RBC Nucleated RBC % (auto) D-Dimer VBG pH VBG pCO2 VBG Oxygen Liters/Min VBG pO2 VBG HCO3 VBG O2 Saturation VBG Base Excess Sodium Potassium Chloride Carbon Dioxide Anion Gap BUN Creatinine Estim Creat Clear Calc Estimated GFR POC Glucose 264 H Random Glucose Calcium Cancelled Phosphorus Magnesium Ferritin Lactate Dehydrogenase C-Reactive Protein Procalcitonin Nasal Screen MRSA (PCR) NEGATIVE Nasal S. aureus Screen POSITIVE A Nasal MRSA/S.aureus Interp SEE NOTE 06/09/20 06/09/20 06/09/20 15:20 18:02 20:55 WBC RBC Hgb Hct MCV MCH MCHC RDW Plt Count MPV Absolute Nucleated RBC Nucleated RBC % (auto) D-Dimer VBG pH VBG pCO2 VBG Oxygen Liters/Min VBG pO2 VBG HCO3 VBG O2 Saturation VBG Base Excess Sodium Potassium Chloride Carbon Dioxide Anion Gap BUN Creatinine Estim Creat Clear Calc Estimated GFR POC Glucose 283 H 299 H 241 H Random Glucose Calcium Phosphorus Magnesium Ferritin Lactate Dehydrogenase C-Reactive Protein Procalcitonin Nasal Screen MRSA (PCR) Nasal S. aureus Screen Nasal MRSA/S.aureus Interp 06/10/20 06/10/20 06/10/20 00:33 03:17 05:42 WBC RBC Hgb Hct MCV MCH MCHC RDW Plt Count MPV Absolute Nucleated RBC Nucleated RBC % (auto) D-Dimer VBG pH VBG pCO2 VBG Oxygen Liters/Min VBG pO2 VBG HCO3 VBG O2 Saturation VBG Base Excess Sodium Potassium Chloride Carbon Dioxide Anion Gap BUN Creatinine Estim Creat Clear Calc Estimated GFR POC Glucose 166 H 136 H 127 H Random Glucose Calcium Phosphorus Magnesium Ferritin Lactate Dehydrogenase C-Reactive Protein Procalcitonin Nasal Screen MRSA (PCR) Nasal S. aureus Screen Nasal MRSA/S.aureus Interp 06/10/20 06/10/20 06/10/20 05:47 05:47 05:47 WBC 21.1 H RBC 3.55 L Hgb 10.6 L Hct 33.8 L MCV 95.2 MCH 29.9 MCHC 31.4 RDW 13.8 Plt Count 384 MPV 12.1 Absolute Nucleated RBC 0.000 Nucleated RBC % (auto) 0.0 D-Dimer 1866 VBG pH VBG pCO2 VBG Oxygen Liters/Min VBG pO2 VBG HCO3 VBG O2 Saturation VBG Base Excess Sodium 143 Potassium 4.6 Chloride 110 H Carbon Dioxide 27 Anion Gap 11 L BUN 35 H Creatinine 0.69 Estim Creat Clear Calc 88.5 Estimated GFR > 60 POC Glucose Random Glucose 130 H D Calcium 6.9 L Phosphorus 3.3 Magnesium 3.0 H Ferritin 986 H Lactate Dehydrogenase 418 H C-Reactive Protein 8.44 H Procalcitonin Nasal Screen MRSA (PCR) Nasal S. aureus Screen Nasal MRSA/S.aureus Interp 06/10/20 06/10/20 05:47 05:47 WBC RBC Hgb Hct MCV MCH MCHC RDW Plt Count MPV Absolute Nucleated RBC Nucleated RBC % (auto) D-Dimer VBG pH 7.38 VBG pCO2 51 VBG Oxygen Liters/Min Not Reportable VBG pO2 61 VBG HCO3 29 VBG O2 Saturation 89.8 VBG Base Excess 3.1 Sodium Potassium Chloride Carbon Dioxide Anion Gap BUN Creatinine Estim Creat Clear Calc Estimated GFR POC Glucose Random Glucose Calcium Phosphorus Magnesium Ferritin Lactate Dehydrogenase C-Reactive Protein Procalcitonin 1.38 Nasal Screen MRSA (PCR) Nasal S. aureus Screen Nasal MRSA/S.aureus Interp Microbiology Microbiology Results: Microbiology 06/04/20 17:18 Blood - Venous Blood Culture - Final No growth after 5 days. 06/04/20 17:18 Blood - Venous Blood Culture - Final No growth after 5 days. 06/07/20 08:25 Sputum - Suctioned Gram Stain - Final 06/07/20 08:25 Sputum - Suctioned Sputum Culture - Final Progress Note: A&P Time Spent With Patient Time: Total time spent is greater than 50% in coordination of care (as documented) at patient's floor/unit and/or counseling patient: Total time spent with greater than 50% in coordination of care (as documented) at patient's floor/unit and/or counseling patient:: 0 Critical Care Time Critical Care Time (minutes): 60
[2020-06-10 09:05] LABS: Glucose, Whole Blood 82 mg/dL (60-115)
[2020-06-10] MEDS: Atorvastatin Calcium 80 MG TABLET PO (09:36)
[2020-06-10] MEDS: Famotidine 20 MG TABLET 40 MG PO ×2 (09:36→21:06)
[2020-06-10] MEDS: Chlorhexidine Gluc Oral Rinse 15 ML MOUTHWASH BUCCAL ×3 (09:36→21:06)
[2020-06-10] MEDS: propofoL 1,000 MG/100 ML VIAL 23.1 MG IVCONT ×2 (09:36→13:31)
[2020-06-10 09:58] LABS: Glucose, Whole Blood 115 mg/dL (60-115)
[2020-06-10 11:45] LABS: Glucose, Whole Blood 128 mg/dL (60-115)
[2020-06-10] MEDS: Thiamine HCL 200 MG in 0.9 % Sodium Chloride 100 ML 204 MG IV (11:49)
--- NOTE | 2020-06-10 13:05 | P.CDIC_ITS ---
[facility] Concurrent Query Service Date: 06/10/20 Documentation Clarification: Please clarify if you are treating a proba ble/suspected/likely or confirmed: Consistency and clarity of documentation: Viral Sepsis due to Covid 19/pneumonia POA Please specify if known Provider Response: Pneumonia PLEASE DO NOT DELETE/MODIFY EXISTING CONTENT Additional information is needed in order to code to the highest accuracy and appropriate Severity of Illness (SOI). Please clarify the information noted below in your progress notes and discharge summary. Risk Factors/Clinical Indicators/Treatments H&P: Sepsis, most likely 2nd to viral sepsis in setting of COVID-19 pneumonia. Tachycardia, leukocytosis, febrile, elevated LA secondary to hypoxia. PN: 06/05 - Sepsis due to Covid-19 pneumonia, acute hypoxic respiratory failure. O2 supplement, Azithromycin, Decradon. IV fluids. ID Consult note 06/05 - Sepsis due to Covid-19 pneumonia PN: 06/07 - Sepsis, Covid-19 pneumonia. CDS: Vanessa Maddox CCS, [facility] Contact Number: [phone] Please Review the information above and exercise your independent professional judgment in responding to the query. If you concur, pleas document in the PROGRESS NOTES and DISCHARGE SUMMARY. If you do not agree with the query, please document in the query above. THIS QUERY IS PART OF THE PERMANENT MEDICAL RECORD
[2020-06-10] MEDS: cefTRIAXone sodium 1 GM in 0.9 % Sodium Chloride 50 ML IV (13:15)
[2020-06-10 15:16] LABS: Glucose, Whole Blood 153 mg/dL (60-115)
[2020-06-10] MEDS: Sodium Chloride 0.45 % 1,000 ML 50 ML IVCONT (15:16)
--- NOTE | 2020-06-10 15:19 | MHC.CM.PN ---
Patient remains intubated/vented in ICU. Patient is from home. May need physical therapy eval for home safety eval when medically stable. Continue to monitor for d/c needs.
[2020-06-10] MEDS: Insulin Regular/NS 100 UNIT/100 ML PLAST..BAG IVCONT (15:37)
[2020-06-10 16:24] LABS: Base Excess VBG 1.8 mmol/L; HCO3 VBG 30 mmol/L; PCO2 VBG 63 mmhg; PO2 VBG 42 mmhg; pH VBG 7.29 (7.32-7.43)
[2020-06-10 16:25] LABS: Oxygen Saturation VBG 71.7 %
[2020-06-10 17:04] LABS: Anion Gap 8 (12-20); Blood Urea Nitrogen 31 mg/dL (9-16); Calcium 6.6 mg/dL (8.4-10.2); Carbon Dioxide 29 mmol/L (22-29); Chloride 109 mmol/L (96-108); Creatinine Clr Calc Pharmacy 91.2; Estimated Glomerular Filt Rate > 60; Glucose Random 201 mg/dL (60-115); Potassium 5.1 mmol/l (3.3-5.1); Sodium 141 mmol/L (135-145)
--- NOTE | 2020-06-10 17:30 | PM.PNNEP ---
Subjective Subjective Interval history: Seen and examined. Events noted Physical Exam Vital Signs: Vital Signs: Last Vital Signs Temp 98.1 F 06/10/20 15:55 Pulse 73 06/10/20 17:00 Resp 25 H 06/10/20 17:00 BP 114/58 L 06/10/20 17:00 Pulse Ox 90 L 06/10/20 17:00 Body Mass Index 28.2 General: Const: General: cooperative, no acute distress and acute distress (Resp ) Nutritional Appearance: average body habitus Orientation/consciousness: patient oriented x3 HENMT: Head: Yes normal to inspection Ears: hearing grossly normal bilaterally Eyes: General: appearance normal, both eyes and all related structures Visual Wilson: normal visual wilson by confrontation Pupils: Equal, round and reactive pupils present Neck: Neck: Yes normal visual inspection, No positive Brudzinski's sign, No positive Kernig's sign and No tender Thyroid: Thyroid normal Chest: Chest palpation & inspection: normal inspection of the chest Resp: Other: vented Effort & Inspection: audible wheezes and respiratory distress ( Decreased breath sounds diffusely) Auscultation: rhonchi and wheezes Cardio: Jugular venous distension: no JVD Rate: regular rate and tachycardic Rhythm: regular rhythm GI: Inspection: Yes normal to inspection Palpation (GI): Soft to palpation and nontender Percussion: Yes normal to percussion Auscultation: normal bowel sounds : General: Yes no CVA tenderness Back/Spine/Pelvis: Back: no CVA tenderness Skin: General skin exam: no rashes or lesions noted Neuro: General: patient oriented x3 Cranial nerves: Yes Equal, round and reactive pupils present Cognition (Neuro): normal cognition Extrem: General: Yes normal to inspection and Yes no pedal edema Assessment & Plan Assessment and plan (1) COVID-19: Problem details: He has COVID and COPD exacerbation Status: Acute (2) COPD exacerbation: Status: Acute Assessment and Plan: 1. COVID Resp Failure cont on Vent support 2. Incr Bun/Cr: d/t steroids and ques IV vol depletion 3. Vol status: renal func preserved but at definite risk for DEE d/t COVID and cytokine ATN injury and thus need to keep adequately hydrated; incr UOp with IVF REC: cont IVF and monitor UOP/renal func; avoid NToxins Time Spent With Patient Time: Total time spent is greater than 50% in coordination of care (as documented) at patient's floor/unit and/or counseling patient:
[2020-06-10] MEDS: Lactulose 20 GM/30 ML SOLUTION PO (17:42)
[2020-06-10 18:12] LABS: Glucose, Whole Blood 178 mg/dL (60-115)
[2020-06-10] MEDS: Melatonin 3 MG TABLET 9 MG PO (21:07)
[2020-06-10 22:51] LABS: Glucose, Whole Blood 168 mg/dL (60-115)
[2020-06-10 22:51] LABS: Glucose, Whole Blood 165 mg/dL (60-115)
[2020-06-11] VITALS (32 sets, daily range): BP systolic 88–164; BP diastolic 38–70; PULSE 55–81; RESP 16–27; TEMP 35.9–37.4; O2SAT 88–94
[2020-06-11] MEDS: Thiamine HCL 200 MG in 0.9 % Sodium Chloride 100 ML 204 MG IV ×2 (00:27→12:54)
[2020-06-11] MEDS: Enoxaparin Sodium 80 MG/0.8 ML SYRINGE 75 MG SUBCUT (00:30)
[2020-06-11] MEDS: methylPREDNISolone Sod Succ/PF 125 MG/2 ML VIAL 80 MG IVPUSH ×2 (00:31→11:56)
[2020-06-11] MEDS: propofoL 1,000 MG/100 ML VIAL 20.79 MG IVCONT ×5 (02:56→17:44)
[2020-06-11 03:02] LABS: Glucose, Whole Blood 110 mg/dL (60-115)
--- NOTE | 2020-06-11 04:42 | PC.NURSE ---
sedated under the influences of propofol for ventilator harmony. with tactile stimulation, opens ou and elicits occular tracking and focusing. will localize hands toward face. rodriguez purposefully but weakly. complexion sallow. skin warm/dry. generalized edema of pelvis and sacrum noted. transorally intubated. and maintained on pressure control ventilation 20/12 fio2 70%. sao2 90-92%. breath sounds coarse with scattered i/e rhonchi. suctioned via ett for moderate amounts of thick norman blood tinged phlegm. heart s1s2. ecg displays sb-sr with pacs. pressor support off. abdomen distended/semisoft/+bowel sounds. ogt to feeding pump infusing fs promote at 60ml/hr. ogt placement confirmed over epigastrium with instilled volume of air. incontinent x 3 of large liquid brown stool. bryant catheter patent and draining rikki urine u/o 40-60ml/hr. insulin . drip adjusted per reporting to beverley bojorquez awaiting am labs.
[2020-06-11 04:49] LABS: HCO3 VBG 28 mmol/L; Hematocrit 33.4 % (42-52); Hemoglobin 10.1 g/dl (14.0-18.0); Mean Corpuscular HGB Conc 30.2 g/dl (31.0-36.0); Mean Corpuscular Hemoglobin 29.6 pg (27.0-33.0); Mean Corpuscular Volume 97.9 fL (80-98); PCO2 VBG 54 mmhg; PO2 VBG 39 mmhg; Platelet Count 289 X10*3/uL (160-400); Red Blood Count 3.41 X10*6/uL (4.60-5.80); Red Cell Distribution Width 14.2 % (11.0-16.0); White Blood Count 14.4 X10*3/uL (4.8-10.8); pH VBG 7.33 (7.32-7.43)
[2020-06-11 04:50] LABS: Oxygen Saturation VBG 68.5 %
[2020-06-11 05:14] LABS: C Reactive Protein 5.63 mg/dL (< or = 0.50)
[2020-06-11 05:16] LABS: Anion Gap 9 (12-20); Blood Urea Nitrogen 29 mg/dL (9-16); Calcium 6.7 mg/dL (8.4-10.2); Carbon Dioxide 27 mmol/L (22-29); Chloride 109 mmol/L (96-108); Creatinine Clr Calc Pharmacy 101.8; Estimated Glomerular Filt Rate > 60; Glucose Random 127 mg/dL (60-115); Sodium 140 mmol/L (135-145)
[2020-06-11 05:35] LABS: INTERNATIONAL NORM RATIO 1.5 (0.9-1.1); Prothrombin Time 17.7 SEC (10.8-13.0)
[2020-06-11 05:37] LABS: Ferritin 713 ng/mL (20-250)
[2020-06-11] MEDS: Insulin Regular/NS 100 UNIT/100 ML PLAST..BAG IVCONT (05:37)
[2020-06-11 06:57] LABS: D Dimer 2047 NG/ML
[2020-06-11] MEDS: 0.9 % Sodium Chloride Flush 3 ML SYRINGE IVFLUSH ×2 (08:12→15:20)
[2020-06-11 08:58] LABS: Glucose, Whole Blood 117 mg/dL (60-115)
[2020-06-11] MEDS: Atorvastatin Calcium 80 MG TABLET PO (09:34)
[2020-06-11] MEDS: Sodium Chloride 0.45 % 1,000 ML 50 ML IVCONT (09:35)
[2020-06-11] MEDS: Chlorhexidine Gluc Oral Rinse 15 ML MOUTHWASH BUCCAL ×3 (09:35→20:23)
[2020-06-11] MEDS: Famotidine 20 MG TABLET 40 MG PO ×2 (09:35→20:23)
--- NOTE | 2020-06-11 10:14 | MHC.CLN ---
F/U PT TOLERATING TF PROMOTE AT MAX GOAL RATE 60CC/HR WITH 120CC FREE WATER Q SHIFT PROVIDES 1440KCALS (1989KCALS WITH SEDATION; 29KCALS/KG), 90G PROTEIN (1.3G/KG), 1568CC TOTAL WATER FROM FORMULA AND FLUSHES NSG REPORTS LOW RESIDUALS 15CC TODAY-TOLERATING WELL TF AND FLUSHES NOT MEETING ESTIMATED FLUID NEEDS IF MORE FREE WATER NEEDED; RECOMMEND 240CC Q 6HRS TO PROVIDE 2168CC TOTAL WATER FROM FORMULA AND FLUSHES (32CC/KG) MONITOR RESIDUALS, TOLERANCE AND LYTES FOLLOWING
--- NOTE | 2020-06-11 10:51 | PM.PNNEP ---
Subjective Subjective Interval history: Seen and examined. Events noted K level elevated 5.5 this am Physical Exam Vital Signs: Vital Signs: Last Vital Signs Temp 97.9 F 06/11/20 09:56 Pulse 72 06/11/20 09:56 Resp 22 H 06/11/20 09:56 BP 105/51 L 06/11/20 09:56 Pulse Ox 90 L 06/11/20 09:56 Body Mass Index 28.2 General: Const: General: cooperative, no acute distress and acute distress (Resp ) Nutritional Appearance: average body habitus Orientation/consciousness: patient oriented x3 HENMT: Head: Yes normal to inspection Ears: hearing grossly normal bilaterally Eyes: General: appearance normal, both eyes and all related structures Visual Wilson: normal visual wilson by confrontation Pupils: Equal, round and reactive pupils present Neck: Neck: Yes normal visual inspection, No positive Brudzinski's sign, No positive Kernig's sign and No tender Thyroid: Thyroid normal Chest: Chest palpation & inspection: normal inspection of the chest Resp: Other: vented Effort & Inspection: audible wheezes and respiratory distress ( Decreased breath sounds diffusely) Auscultation: rhonchi and wheezes Cardio: Jugular venous distension: no JVD Rate: regular rate and tachycardic Rhythm: regular rhythm GI: Inspection: Yes normal to inspection Palpation (GI): Soft to palpation and nontender Percussion: Yes normal to percussion Auscultation: normal bowel sounds : General: Yes no CVA tenderness Back/Spine/Pelvis: Back: no CVA tenderness Skin: General skin exam: no rashes or lesions noted Neuro: General: patient oriented x3 Cranial nerves: Yes Equal, round and reactive pupils present Cognition (Neuro): normal cognition Extrem: General: Yes normal to inspection and Yes no pedal edema Assessment & Plan Assessment and plan (1) COVID-19: Problem details: He has COVID and COPD exacerbation Status: Acute (2) COPD exacerbation: Status: Acute Assessment and Plan: 1. COVID Resp Failure cont on Vent support 2. Incr Bun/Cr: d/t steroids and ques IV vol depletion 3. Vol status: renal func preserved but at definite risk for DEE d/t COVID and cytokine ATN injury and thus need to keep adequately hydrated 4. HyperK: ques related to Heparin interference with urine K excretion REC: kayexlate and repeat K level; check Urine K and Osm to measure TTKg; cont IVF and monitor UOP/renal func; avoid NToxins addendum...repeat K 6.2 at 3 pm but dod not get kayexlate until 4 pm Time Spent With Patient Time: Total time spent is greater than 50% in coordination of care (as documented) at patient's floor/unit and/or counseling patient:
[2020-06-11 11:35] LABS: Glucose, Whole Blood 91 mg/dL (60-115)
--- NOTE | 2020-06-11 12:13 | P.PNCC_ITS ---
Subjective Subjective Date of Service: 06/11/20 Interval History: Mr. Rodriguez was transferred to the ICU on Jun 07 after being intubated on IMC because of severe COVID-19 pneumonia with acute respiratory failure. The patient is a 74-year-old male with past medical history of COPD and hyper tension. He?s a former smoker, lives at home. The patient presented to the ED on June 04 c/o SOB x 2 days, associated with wheezing, sputum production, fever, and loss of appetite. On arrival to the ED, he was tachypneic, with room air Sat 40?s. Sat gulshan to 96-100% on non- rebreather face mask, with no increased WOB. ABG on 6LNC (?) showed 7.42/38/105/0, BUN/creat were 39/1.2 (baseline 0.9), lactate was 3.4, LDH 498, and COVID-19 PCR positive. CXR showed bilateral multifocal pneumonia. CT angiogram was negative for PE, and showed extensive ground-glass opacification throughout the lungs (suggesting very advanced COVID). He was admitted to Medicine and tx with Decadron, fluids, and Zithromax. Remdesivir was started. On Jun 06 his oxygenation worsened and HFNC was added. He was seen by Dr. Delgado, but the patient declined tx to ICU, felt he didn?t need it. He was started on Ceftriaxone and full dose bid Lovenox. The next morning, his oxygenation worsened and he agreed to intubation. He was intubated on IMC and transferred to ICU. After arrival to ICU, a CVL was pl aced. He was put on PCV. He required 95% oxygen to achieve a sat of 89%. He was started on the [facility] COVID protocol, including high dose solumedrol, high dose melatonin, Vit D, Thiamine, atorvastatin, magnesium, and high dose Pepcid Since then we?ve been able to slowly wean his FiO2 and ventilator support. We did a propofol holiday last on Jun 09 and the patient woke up and was fully and appropriately interactive. That day we got his FiO2 down to 55%, but it?s back up now to 70%. This morning he?s well sedated on propofol @ 45ug. See Vital Signs below. He?s on Levophed 0.05ug. On the ventilator, AC/PC 14, press 18/12, 70%, RR is 25, Vt is 500cc, Ve 12L, PIP is 32cm, SpO2 is 91%, ETCO2 is 30. CVBG this morning showed 7.33/54. U/O running 30-40cc/hr with IVF 1/2NS @ 50cc/hr. Insulin @ 5u/hr LABORATORY DATA: As below. Notably, white count is down, BUN and creatinine are down further after rehydration. Random glucose down to the 110 range on insulin gtt on the high-dose Solu-Medrol. D-dimer up slightly on the full dose bid Lovenox; ferritin and CRP down today. MICROBIOLOGY: All cultures negative so far. IMPRESSION: 1. Severe bilat COVID-19 pneumonia. Continue treatment as above. 2. Acute hypoxemic respiratory failure. 2? to the above. Was initially showing significant improvement in oxygenation and compliance, but seems to have plateaued. Not ready for further PSV trials. Stop further IV fluids. 3. Acute kidney injury. Numbers look better after rehydration with ? NS. 4. ID. Antibiotics DC?d yesterday. WBC down today. Recheck PCT tomorrow. 5. Very high D-dimer. Started on bid Lovenox. Follow daily. 6. Hyperglycemia. 2? steroids. On insulin drip. Check daily D-dimer, ferritin, CRP, magnesium, and procalcitonin. I spoke to the HCP (Daughter Maral Rodriguez, ) on Sunday, discussed condition, tx, and prognosis. Critical care time: 50 min. Physical Exam Vital Signs: Vital Signs: Last Vital Signs Temp 98.4 F 06/11/20 11:53 Pulse 74 06/11/20 11:53 Resp 27 H 06/11/20 11:53 BP 116/48 L 06/11/20 11:53 Pulse Ox 89 L 06/11/20 11:53 Body Mass Index 28.2 Objective Data Labs CBC & Chem 7: 06/11/20 04:20 06/11/20 04:20 Labs: Laboratory Results - last 24 hr 06/10/20 06/10/20 06/10/20 15:09 16:00 16:00 WBC RBC Hgb Hct MCV MCH MCHC RDW Plt Count MPV Absolute Nucleated RBC Nucleated RBC % (auto) PT INR D-Dimer VBG pH 7.29 L VBG pCO2 63 VBG Oxygen Liters/Min Not Reportable VBG pO2 42 VBG HCO3 30 VBG O2 Saturation 71.7 VBG Base Excess 1.8 Sodium 141 Potassium 5.1 Chloride 109 H Carbon Dioxide 29 Anion Gap 8 L BUN 31 H Creatinine 0.67 Estim Creat Clear Calc 91.2 Estimated GFR > 60 POC Glucose 153 H Random Glucose 201 H D Calcium 6.6 L Ferritin C-Reactive Protein Albumin 06/10/20 06/10/20 06/10/20 17:45 20:53 22:42 WBC RBC Hgb Hct MCV MCH MCHC RDW Plt Count MPV Absolute Nucleated RBC Nucleated RBC % (auto) PT INR D-Dimer VBG pH VBG pCO2 VBG Oxygen Liters/Min VBG pO2 VBG HCO3 VBG O2 Saturation VBG Base Excess Sodium Potassium Chloride Carbon Dioxide Anion Gap BUN Creatinine Estim Creat Clear Calc Estimated GFR POC Glucose 178 H 165 H 168 H Random Glucose Calcium Ferritin C-Reactive Protein Albumin 06/11/20 06/11/20 06/11/20 02:41 04:20 04:20 WBC 14.4 H RBC 3.41 L Hgb 10.1 L Hct 33.4 L MCV 97.9 MCH 29.6 MCHC 30.2 L RDW 14.2 Plt Count 289 MPV 12.0 Absolute Nucleated RBC 0.000 Nucleated RBC % (auto) 0.0 PT 17.7 H INR 1.5 H D-Dimer 2047 VBG pH VBG pCO2 VBG Oxygen Liters/Min VBG pO2 VBG HCO3 VBG O2 Saturation VBG Base Excess Sodium Potassium Chloride Carbon Dioxide Anion Gap BUN Creatinine Estim Creat Clear Calc Estimated GFR POC Glucose 110 Random Glucose Calcium Ferritin C-Reactive Protein Albumin 06/11/20 06/11/20 06/11/20 04:20 04:20 04:20 WBC RBC Hgb Hct MCV MCH MCHC RDW Plt Count MPV Absolute Nucleated RBC Nucleated RBC % (auto) PT INR D-Dimer VBG pH 7.33 VBG pCO2 54 VBG Oxygen Liters/Min Not Reportable VBG pO2 39 VBG HCO3 28 VBG O2 Saturation 68.5 VBG Base Excess 1.0 Sodium 140 Potassium 5.0 Chloride 109 H Carbon Dioxide 27 Anion Gap 9 L BUN 29 H Creatinine 0.60 Estim Creat Clear Calc 101.8 Estimated GFR > 60 POC Glucose Random Glucose 127 H D Calcium 6.7 L Ferritin 713 H C-Reactive Protein 5.63 H Albumin 2.0 L 06/11/20 06/11/20 07:33 11:29 WBC RBC Hgb Hct MCV MCH MCHC RDW Plt Count MPV Absolute Nucleated RBC Nucleated RBC % (auto) PT INR D-Dimer VBG pH VBG pCO2 VBG Oxygen Liters/Min VBG pO2 VBG HCO3 VBG O2 Saturation VBG Base Excess Sodium Potassium Chloride Carbon Dioxide Anion Gap BUN Creatinine Estim Creat Clear Calc Estimated GFR POC Glucose 117 H 91 Random Glucose Calcium Ferritin C-Reactive Protein Albumin Microbiology Microbiology Results: Microbiology 06/09/20 15:39 Sputum - Suctioned Gram Stain - Final 06/09/20 15:39 Sputum - Suctioned Sputum Culture - Final 06/10/20 05:47 Blood - Venous Blood Culture - Preliminary No growth after 24 hours. 06/10/20 05:47 Blood - Venous Blood Culture - Preliminary No growth after 24 hours. 06/04/20 17:18 Blood - Venous Blood Culture - Final No growth after 5 days. 06/04/20 17:18 Blood - Venous Blood Culture - Final No growth after 5 days. 06/07/20 08:25 Sputum - Suctioned Gram Stain - Final 06/07/20 08:25 Sputum - Suctioned Sputum Culture - Final Progress Note: A&P Time Spent With Patient Time: Total time spent is greater than 50% in coordination of care (as documented) at patient's floor/unit and/or counseling patient: Total time spent with greater than 50% in coordination of care (as documented) at patient's floor/unit and/or counseling patient:: 0 Critical Care Time Critical Care Time (minutes): 60
[2020-06-11 13:53] LABS: Glucose, Whole Blood 91 mg/dL (60-115)
[2020-06-11 16:50] LABS: Glucose, Whole Blood 125 mg/dL (60-115)
[2020-06-11] MEDS: Melatonin 3 MG TABLET 9 MG PO (20:23)
[2020-06-11] MEDS: Insulin Regular/NS 100 UNIT/100 ML PLAST..BAG 6 UNIT IVCONT (20:27)
[2020-06-11 20:51] LABS: Glucose, Whole Blood 156 mg/dL (60-115)
[2020-06-11] MEDS: propofoL 1,000 MG/100 ML VIAL 23.1 MG IVCONT (22:10)
[2020-06-12] VITALS (31 sets, daily range): BP systolic 86–136; BP diastolic 41–75; PULSE 66–83; RESP 13–24; TEMP 36.7–37.2; O2SAT 87–93
[2020-06-12] MEDS: Thiamine HCL 200 MG in 0.9 % Sodium Chloride 100 ML 204 MG IV ×2 (00:01→15:11)
[2020-06-12] MEDS: Enoxaparin Sodium 80 MG/0.8 ML SYRINGE 75 MG SUBCUT (00:01)
[2020-06-12 01:33] LABS: Glucose, Whole Blood 156 mg/dL (60-115)
[2020-06-12] MEDS: propofoL 1,000 MG/100 ML VIAL 23.1 MG IVCONT ×7 (01:33→23:27)
[2020-06-12 05:35] LABS: Hematocrit 36.1 % (42-52); Mean Corpuscular HGB Conc 30.5 g/dl (31.0-36.0); Mean Corpuscular Hemoglobin 29.5 pg (27.0-33.0); Mean Corpuscular Volume 96.8 fL (80-98); Mean Platelet Volume 12.4 fL (9.4-12.4); Platelet Count 371 X10*3/uL (160-400); Red Blood Count 3.73 X10*6/uL (4.60-5.80); Red Cell Distribution Width 14.3 % (11.0-16.0); White Blood Count 18.3 X10*3/uL (4.8-10.8)
[2020-06-12 05:44] LABS: Base Excess VBG 0.5 mmol/L; HCO3 VBG 28 mmol/L; Oxygen Saturation VBG 81.1 %; PCO2 VBG 60 mmhg; PO2 VBG 50 mmhg; pH VBG 7.29 (7.32-7.43)
[2020-06-12 06:01] LABS: Alanine Aminotransferase 55 U/L (0-40); Albumin Level 2.2 g/dL (3.5-5.0); Alkaline Phosphatase 118 U/L (39-117); Anion Gap 8 (12-20); Aspartate Amino Transferase 62 U/L (5-37); Bilirubin Total 0.2 mg/dL (0.0-1.0); Blood Urea Nitrogen 29 mg/dL (9-16); C Reactive Protein 7.48 mg/dL (< or = 0.50); Carbon Dioxide 30 mmol/L (22-29); Chloride 106 mmol/L (96-108); Creatinine Clr Calc Pharmacy 87.3; Estimated Glomerular Filt Rate > 60; Glucose Random 166 mg/dL (60-115); Lactate Dehydrogenase 425 U/L (118-273); Magnesium 2.6 mg/dL (1.6-2.6); Potassium 5.5 mmol/l (3.3-5.1); Sodium 138 mmol/L (135-145); Total Protein 4.9 g/dL (6.5-8.0)
[2020-06-12 06:28] LABS: Ferritin 803 ng/mL (20-250)
[2020-06-12 06:37] LABS: Glucose, Whole Blood 128 mg/dL (60-115)
[2020-06-12 06:56] LABS: Procalcitonin 0.47 ng/mL
[2020-06-12 07:51] LABS: D Dimer 3151 NG/ML
[2020-06-12] MEDS: Chlorhexidine Gluc Oral Rinse 15 ML MOUTHWASH BUCCAL ×3 (08:21→21:45)
[2020-06-12] MEDS: Atorvastatin Calcium 80 MG TABLET PO (08:21)
[2020-06-12] MEDS: Famotidine 20 MG TABLET 40 MG PO ×2 (08:21→21:45)
[2020-06-12] MEDS: 0.9 % Sodium Chloride Flush 3 ML SYRINGE IVFLUSH ×3 (08:21→16:40)
[2020-06-12 09:10] LABS: Glucose, Whole Blood 181 mg/dL (60-115)
[2020-06-12] MEDS: methylPREDNISolone Sod Succ/PF 125 MG/2 ML VIAL 80 MG IVPUSH ×2 (11:53)
[2020-06-12] MEDS: Insulin Regular/NS 100 UNIT/100 ML PLAST..BAG 7 UNIT IVCONT (11:54)
[2020-06-12] MEDS: HYDROmorphone HCl 0.5 MG/0.5 ML SYRINGE IVPUSH (12:39)
--- NOTE | 2020-06-12 12:41 | XR_ITS ---
EXAMINATION: XR CHEST CLINICAL INFORMATION: Respiratory distress. COMPARISON: Several priors. Most recent of 06/07/20. TECHNIQUE: Frontal view of the chest was obtained. FINDINGS: The endotracheal tube is 5 cm above the harish. The feeding tube is seen passing in the stomach but the tip is beyond the field of view. The right subclavian CVL remains in stable position with the tip at the level of the cavoatrial junction. There is stable appearance of extensive bilateral patchy airspace opacity consistent with multifocal pneumonia. No large pleural effusion. Heart size is unremarkable. XR/XR chest 1V IMPRESSION: 1. Endotracheal tube 5 cm above the harish. 2. Stable appearance of extensive bilateral patchy airspace opacity consistent with multifocal pneumonia.
[2020-06-12] MEDS: fentaNYL citrate/PF 100 MCG/2 ML VIAL 50 MCG IVPUSH (12:45)
[2020-06-12 13:44] LABS: Glucose, Whole Blood 165 mg/dL (60-115)
--- NOTE | 2020-06-12 15:04 | P.PNCC_ITS ---
Subjective Subjective Date of Service: 06/12/20 Interval History: Mr. Rodriguez was transferred to the ICU on Jun 07 after being intubated on IMC because of severe COVID-19 pneumonia with acute respiratory failure. The patient is a 74-year-old male with past medical history of COPD and hyper tension. He?s a former smoker, lives at home. The patient presented to the ED on June 04 c/o SOB x 2 days, associated with wheezing, sputum production, fever, and loss of appetite. On arrival to the ED, he was tachypneic, with room air Sat 40?s. Sat gulshan to 96-100% on non- rebreather face mask, with no increased WOB. ABG on 6LNC showed 7.42/38/105/0, BUN/creat were 39/1.2 (baseline 0.9), lactate was 3.4, LDH 498, and COVID-19 PCR positive. CXR showed bilateral multifocal pneumonia. CT angiogram was negative for PE, and showed extensive ground-glass opacification throughout the lungs, suggesting very advanced COVID-19 pneumonia. He was admitted to Medicine and tx with Decadron, fluids, and Zithromax. Remdesivir was started. On Jun 06 his oxygenation worsened and HFNC was added. He was seen by Dr. Delgado, but the patient declined tx to ICU, felt he didn?t need it. He was started on Ceftriaxone and full dose bid Lovenox. The next morning, his oxygenation worsened and he agreed to intubation. He was intubated on IMC and transferred to ICU. After arrival to ICU, a CVL was placed. He required 95% oxygen on PCV to achieve a sat of 89%. He was started on the [facility] COVID protocol, including high dose solumedrol, high dose melatonin, Vit D, Thiamine, atorvastatin, magnesium, and high dose Pepcid Subsequently, we were able to slowly wean his FiO2 and ventilatory support. We did a propofol holiday last on Jun 09 and the patient woke up and was fully and appropriately interactive. That day we got his FiO2 down to 55%, but after the propofol holiday, his breathing pattern became chaotic, and he suffered a setback with the FiO2 back up to 70%. This morning he he had an episode of probably mucus and/or tracheal tube plugging, with a drop in his tidal volumes and difficulty passing the suction catheter and regaining the tidal volumes with higher inspiratory pressures. Finally, after copious lavage, we regained the ground with his inspiratory pressure, but we lost ground with his FiO2, now up to 90%. Follow-up chest x- ray showed what looks to me like worse consolidation in the right middle and upper lung areas. He?s now well sedated on propofol @ 50ug. See Vital Signs below. He?s on Levophed 0.05ug. We?ve reset the ventilator to AC/PC 14, press 07/17, 80%, I:E 1.1.5. RR is 16 (after Dilaudid earlier), Vt is 450-500cc, Ve 7L, PIP is down to 27cm, SpO2 is 91%, ETCO2 is 50. CVBG this morning showed 7.29/60. U/O running >70 cc/hr with IVF off. Tube feeds at 60cc/hr Insulin is off while tube feed is held, but had been @ 5u/hr LABORATORY DATA: As below. Notably, BUN and creatinine are steady. POCs are in mid-100s on the high-dose Solu-Medrol and insulin. D-dimer is up; ferritin and CRP up slightly. Potassium is up for some reason. PCT is way down. MICROBIOLOGY: All cultures negative so far. IMPRESSION: 1. Severe bilat COVID-19 pneumonia. Continue treatment as above. 2. Acute hypoxemic respiratory failure. 2? to the above. Was initially showing significant improvement in oxygenation and compliance, but seems to have micah teaued. Not ready for further PSV trials. 3. Acute kidney injury. Numbers look better after rehydration with ? NS. 4. ID. Antibiotics DC?d two days ago. 5. Very high D-dimer. We have him on bid Lovenox. Follow daily. 6. Hyperglycemia. 2? steroids. On insulin drip. Check daily D-dimer, ferritin, CRP, magnesium, and procalcitonin. I spoke to the HCP (Daughter Maral Rodriguez, ) on Sunday, discussed condition, tx, and prognosis. Critical care time (mult visits to the bedside, mult vent changes): 70 min. Physical Exam Vital Signs: Vital Signs: Last Vital Signs Temp 99.0 F 06/12/20 14:00 Pulse 74 06/12/20 15:00 Resp 14 06/12/20 15:00 BP 113/47 L 06/12/20 15:00 Pulse Ox 90 L 06/12/20 15:00 Body Mass Index 28.2 Objective Data Labs CBC & Chem 7: 06/12/20 05:16 06/12/20 05:16 Labs: Laboratory Results - last 24 hr 06/11/20 06/11/20 06/12/20 16:42 20:31 00:16 WBC RBC Hgb Hct MCV MCH MCHC RDW Plt Count MPV Absolute Nucleated RBC Nucleated RBC % (auto) D-Dimer VBG pH VBG pCO2 VBG Oxygen Liters/Min VBG pO2 VBG HCO3 VBG O2 Saturation VBG Base Excess Sodium Potassium Chloride Carbon Dioxide Anion Gap BUN Creatinine Estim Creat Clear Calc Estimated GFR POC Glucose 125 H 156 H 156 H Random Glucose Calcium Magnesium Ferritin Total Bilirubin AST ALT Alkaline Phosphatase Lactate Dehydrogenase C-Reactive Protein Total Protein Albumin Procalcitonin 06/12/20 06/12/20 06/12/20 03:14 05:16 05:16 WBC 18.3 H RBC 3.73 L Hgb 11.0 L Hct 36.1 L MCV 96.8 MCH 29.5 MCHC 30.5 L RDW 14.3 Plt Count 371 D MPV 12.4 Absolute Nucleated RBC 0.000 Nucleated RBC % (auto) 0.0 D-Dimer 3151 VBG pH VBG pCO2 VBG Oxygen Liters/Min VBG pO2 VBG HCO3 VBG O2 Saturation VBG Base Excess Sodium Potassium Chloride Carbon Dioxide Anion Gap BUN Creatinine Estim Creat Clear Calc Estimated GFR POC Glucose 128 H Random Glucose Calcium Magnesium Ferritin Total Bilirubin AST ALT Alkaline Phosphatase Lactate Dehydrogenase C-Reactive Protein Total Protein Albumin Procalcitonin 06/12/20 06/12/20 06/12/20 05:16 05:16 05:16 WBC RBC Hgb Hct MCV MCH MCHC RDW Plt Count MPV Absolute Nucleated RBC Nucleated RBC % (auto) D-Dimer VBG pH 7.29 L VBG pCO2 60 VBG Oxygen Liters/Min TNP VBG pO2 50 VBG HCO3 28 VBG O2 Saturation 81.1 VBG Base Excess 0.5 Sodium 138 Potassium 5.5 H Chloride 106 Carbon Dioxide 30 H Anion Gap 8 L BUN 29 H Creatinine 0.70 Estim Creat Clear Calc 87.3 Estimated GFR > 60 POC Glucose Random Glucose 166 H Calcium 7.0 L Magnesium 2.6 Ferritin 803 H Total Bilirubin 0.2 AST 62 H ALT 55 H Alkaline Phosphatase 118 H Lactate Dehydrogenase 425 H C-Reactive Protein 7.48 H Total Protein 4.9 L Albumin 2.2 L Procalcitonin 0.47 06/12/20 06/12/20 08:38 11:56 WBC RBC Hgb Hct MCV MCH MCHC RDW Plt Count MPV Absolute Nucleated RBC Nucleated RBC % (auto) D-Dimer VBG pH VBG pCO2 VBG Oxygen Liters/Min VBG pO2 VBG HCO3 VBG O2 Saturation VBG Base Excess Sodium Potassium Chloride Carbon Dioxide Anion Gap BUN Creatinine Estim Creat Clear Calc Estimated GFR POC Glucose 181 H 165 H Random Glucose Calcium Magnesium Ferritin Total Bilirubin AST ALT Alkaline Phosphatase Lactate Dehydrogenase C-Reactive Protein Total Protein Albumin Procalcitonin Microbiology Microbiology Results: Microbiology 06/10/20 05:47 Blood - Venous Blood Culture - Preliminary No growth after 48 hours. 06/10/20 05:47 Blood - Venous Blood Culture - Preliminary No growth after 48 hours. 06/09/20 15:39 Sputum - Suctioned Gram Stain - Final 06/09/20 15:39 Sputum - Suctioned Sputum Culture - Final 06/04/20 17:18 Blood - Venous Blood Culture - Final No growth after 5 days. 06/04/20 17:18 Blood - Venous Blood Culture - Final No growth after 5 days. 06/07/20 08:25 Sputum - Suctioned Gram Stain - Final 06/07/20 08:25 Sputum - Suctioned Sputum Culture - Final Progress Note: A&P Time Spent With Patient Time: Total time spent is greater than 50% in coordination of care (as docu mented) at patient's floor/unit and/or counseling patient: Total time spent with greater than 50% in coordination of care (as documented) at patient's floor/unit and/or counseling patient:: 0 Critical Care Time Critical Care Time (minutes): 60
[2020-06-12 15:35] LABS: HCO3 VBG 32 mmol/L; PCO2 VBG 69 mmhg; PO2 VBG 48 mmhg; pH VBG 7.29 (7.32-7.43)
[2020-06-12 15:36] LABS: Base Excess VBG 3.8 mmol/L; Blood Gas Serial # 5414; Oxygen Saturation VBG 79.4 %
[2020-06-12 15:39] LABS: Glucose, Whole Blood 184 mg/dL (60-115)
[2020-06-12 15:50] LABS: Potassium 6.2 mmol/l (3.3-5.1)
[2020-06-12] MEDS: Sodium Polystyrene Sulfon/Sorb 15 GM/60 ML ORAL.SUSP 30 GM G-TUBE (16:39)
--- NOTE | 2020-06-12 17:53 | PC.NURSE ---
Around noon today, pt suddenly desat'ed with tidal volumes of 250-360ml. RR high 27-32. Sinus tach up to mid 130's with frequent multifocal PVC's and runs of Vtach. BP hypertensive 200/100's. MD at door of isolation room had vent settings changed to inspiratory pressure of 22 to try to get tidal volumes of 500. After no effect, Vt increased to 26. RT was called. MD ordered for pt to be manually ventilated and suctioned. Difficult to advance in-line suction. Initially difficult to manually ventilate, with considerable resistance noted. 3ml saline for inhalation used to lavage and able to pass in-line suction. MD ordered stat dilaudid 0.5mg IVP. Manual ventilation improved. VS improved. SpO2 during this period increased to 96% with the 100% O2 via BVM. MD at bedside with RN & RT. Stat chest xray ordered. Dr Edmond consulted. Vent settings changed to rate of 14, Pi 12, PEEP 14, FIO2 90%. Tube feed and insulin drip temporarily stopped while pt recovered from prior incident. Since roughly 1300, FiO2 has been weened down to 70% with a goal SpO2 of >88%.
[2020-06-12 21:21] LABS: Potassium Urine Random 31.9 mmol/l
[2020-06-12 21:28] LABS: Glucose, Whole Blood 262 mg/dL (60-115)
[2020-06-12 21:33] LABS: Anion Gap 10 (12-20); Blood Urea Nitrogen 33 mg/dL (9-16); Calcium 7.2 mg/dL (8.4-10.2); Carbon Dioxide 30 mmol/L (22-29); Chloride 107 mmol/L (96-108); Creatinine Clr Calc Pharmacy 83.7; Estimated Glomerular Filt Rate > 60; Glucose Random 283 mg/dL (60-115); Potassium 5.6 mmol/l (3.3-5.1); Sodium 141 mmol/L (135-145)
[2020-06-12 21:36] LABS: Osmolality Urine 746 mosm/kg (373-1093)
[2020-06-12] MEDS: Melatonin 3 MG TABLET 9 MG PO (21:45)
[2020-06-12 22:57] LABS: Glucose, Whole Blood 268 mg/dL (60-115)
[2020-06-13] VITALS (30 sets, daily range): BP systolic 114–132; BP diastolic 44–64; PULSE 75–85; RESP 18–25; TEMP 36.6–37.4; O2SAT 88–93
[2020-06-13] MEDS: Thiamine HCL 200 MG in 0.9 % Sodium Chloride 100 ML 204 MG IV ×2 (00:30→13:10)
[2020-06-13] MEDS: Enoxaparin Sodium 80 MG/0.8 ML SYRINGE 75 MG SUBCUT ×2 (00:31→14:19)
[2020-06-13] MEDS: 0.9 % Sodium Chloride Flush 3 ML SYRINGE IVFLUSH ×3 (00:32→16:28)
[2020-06-13] MEDS: methylPREDNISolone Sod Succ/PF 125 MG/2 ML VIAL 80 MG IVPUSH ×2 (00:32→14:19)
[2020-06-13 02:08] LABS: Glucose, Whole Blood 186 mg/dL (60-115)
[2020-06-13 02:08] LABS: Glucose, Whole Blood 197 mg/dL (60-115)
[2020-06-13] MEDS: Insulin Regular/NS 100 UNIT/100 ML PLAST..BAG 8 UNIT IVCONT (03:25)
[2020-06-13] MEDS: propofoL 1,000 MG/100 ML VIAL 23.1 MG IVCONT ×6 (03:25→22:33)
[2020-06-13 05:16] LABS: Glucose, Whole Blood 174 mg/dL (60-115)
[2020-06-13 05:52] LABS: Hemoglobin 10.6 g/dl (14.0-18.0); Mean Corpuscular HGB Conc 30.3 g/dl (31.0-36.0); Mean Corpuscular Hemoglobin 29.5 pg (27.0-33.0); Mean Corpuscular Volume 97.5 fL (80-98); Mean Platelet Volume 12.5 fL (9.4-12.4); Platelet Count 369 X10*3/uL (160-400); Red Blood Count 3.59 X10*6/uL (4.60-5.80); Red Cell Distribution Width 14.2 % (11.0-16.0); White Blood Count 23.4 X10*3/uL (4.8-10.8)
[2020-06-13 06:03] LABS: Base Excess VBG 4.3 mmol/L; HCO3 VBG 31 mmol/L; Oxygen Saturation VBG 78.3 %; PCO2 VBG 57 mmhg; PO2 VBG 46 mmhg; pH VBG 7.36 (7.32-7.43)
[2020-06-13 06:17] LABS: Anion Gap 9 (12-20); Blood Urea Nitrogen 30 mg/dL (9-16); C Reactive Protein 6.52 mg/dL (< or = 0.50); Calcium 7.4 mg/dL (8.4-10.2); Carbon Dioxide 30 mmol/L (22-29); Chloride 106 mmol/L (96-108); Creatinine Clr Calc Pharmacy 95.4; Estimated Glomerular Filt Rate > 60; Glucose Random 148 mg/dL (60-115); Magnesium 2.5 mg/dL (1.6-2.6); Phosphorus 3.3 mg/dL (2.7-4.5); Potassium 5.2 mmol/l (3.3-5.1); Sodium 140 mmol/L (135-145)
[2020-06-13 06:34] LABS: Ferritin 917 ng/mL (20-250)
[2020-06-13 07:01] LABS: D Dimer 3227 NG/ML
[2020-06-13] MEDS: Sodium Polystyrene Sulfon/Sorb 15 GM/60 ML ORAL.SUSP 30 GM PO ×2 (07:40→14:20)
[2020-06-13] MEDS: Chlorhexidine Gluc Oral Rinse 15 ML MOUTHWASH BUCCAL ×3 (07:40→20:01)
[2020-06-13] MEDS: Atorvastatin Calcium 80 MG TABLET PO (07:42)
[2020-06-13] MEDS: Famotidine 20 MG TABLET 40 MG PO ×2 (07:48→20:01)
[2020-06-13 08:26] LABS: Glucose, Whole Blood 140 mg/dL (60-115)
--- NOTE | 2020-06-13 09:31 | PC.NURSE ---
08:00 Patient getting frequent doses of Kayexalate d/t elevated serum potassium levels. Placed fecal management system d/t frequent stooling and concern for skin break down.
[2020-06-13 14:09] LABS: Glucose, Whole Blood 134 mg/dL (60-115)
[2020-06-13] MEDS: Insulin Regular/NS 100 UNIT/100 ML PLAST..BAG 7 UNIT IVCONT (16:29)
--- NOTE | 2020-06-13 16:43 | P.PNCC_ITS ---
Subjective Subjective Date of Service: 06/13/20 Interval History: Mr. Rodriguez was transferred to the ICU on Jun 07 after being intubated on IMC because of severe COVID-19 pneumonia with acute respiratory failure. The patient is a 74-year-old male with past medical history of COPD and hyper tension. He?s a former smoker, lives at home, fully functional. The patient presented to the ED on June 04 c/o SOB x 2 days, associated with wheezing, sputum production, fever, and loss of appetite. On arrival to the ED, he was tachypneic, with room air Sat 40?s. Sat gulshan to 96-100% on non- rebreather face mask. BUN/creat were 39/1.2 (baseline 0.9), lactate was 3.4, LDH 498, and COVID-19 PCR positive. CXR showed bilateral multifocal pneumonia. CT angiogram was negative for PE, and showed extensive ground-glass opacification throughout the lungs, suggesting advanced COVID-19 pneumonia. He was admitted to Medicine and tx with Decadron, fluids, and Zithromax. Remdesivir was started. On Jun 06 his oxygenation worsened and HFNC was added. He was seen by Dr. Delgado, but the patient declined tx to ICU, felt he didn?t need it. He was started on Ceftriaxone and full dose bid Lovenox. The next morning, his oxygenation worsened and he agreed to intubation. He was intubated on IMC and transferred to ICU. After arrival to ICU, a CVL was placed. He required 95% oxygen on PCV to achieve a sat of 89%. He was started on the EVMT COVID protocol, including high dose solumedrol, high dose melatonin, Vit D, Thiamine, atorvastatin, magnesium, and high dose Pepcid Subsequently, we were able to slowly wean his FiO2 and ventilatory support. We did a propofol holiday last on Jun 09 and the patient woke up and was fully and appropriately interactive. That day we got his FiO2 down to 55%, but after the propofol holiday, his breathing pattern became chaotic, and he suffered a setback with the FiO2 back up to 70%. No real progress since then. Yesterday he had an episode of probably mucus and/or tracheal tube plugging, with a drop in his tidal volumes and difficulty passing the suction catheter and regaining the tidal volumes with higher inspiratory pressures. Finally, after copious lavage, we regained the ground with his inspiratory pressure, but we lost ground with his FiO2, requiring up to 90%. Follow-up chest x-ray showed what looks to me like worse consolidation in the right middle and upper lung areas. Did not get back to 70% FiO2 until this morning. He?s now well sedated on propofol @ 50ug. See Vital Signs below. He?s on Levophed 0.07ug, Insulin at 6u/hr. Last night he was changed from AC/PC to AC mode. Currently AC14/450/70%/+14. RR is 23, PIP 31, Ve 10.7L, SpO2 is 90%, ETCO2 is 37. CVBG this morning showed 7.29/49. HR 84, BP 126/56. He remains afebrile. U/O running >70 cc/hr with IVF off. Tube feeds at 60cc/hr LABORATORY DATA: As below. WBC is up. POCs are running low 100s on the high- dose Solu-Medrol and insulin. Renal indices stable. D-dimer is and CRP are steady, ferritin up slightly. MICROBIOLOGY: All cultures negative so far. IMPRESSION: 1. Severe bilat COVID-19 pneumonia. Continue treatment as above. 2. Acute hypoxemic respiratory failure. 2? to the above. Was initially showing significant improvement in oxygenation and compliance, but seems to have plateaued. Not ready for further PSV trials. 3. Acute kidney injury. Numbers look better after rehydration. 4. ID. Antibiotics DC?d three days ago. Last BC negative on 06/10, Last sputum negative on 06/09. Will reorder sputum and urine cx. 5. Very high D-dimer. We have him on bid Lovenox. Follow daily. 6. Hyperglycemia. 2? steroids. On insulin drip. Check daily D-dimer, ferritin, CRP, magnesium, and procalcitonin. I spoke to the HCP (Daughter Maral Rodriguez, ) on Sunday, discussed condition, tx, and prognosis. Critical care time: 50 min. Physical Exam Vital Signs: Vital Signs: Last Vital Signs Temp 98.8 F 06/13/20 16:00 Pulse 77 06/13/20 16:00 Resp 19 06/13/20 16:00 BP 121/46 L 06/13/20 16:00 Pulse Ox 88 L 06/13/20 16:00 Body Mass Index 28.2 Objective Data Labs CBC & Chem 7: 06/13/20 05:37 06/13/20 05:37 Labs: Laboratory Results - last 24 hr 06/12/20 06/12/20 06/12/20 19:35 20:30 20:30 WBC RBC Hgb Hct MCV MCH MCHC RDW Plt Count MPV Absolute Nucleated RBC Nucleated RBC % (auto) D-Dimer VBG pH VBG pCO2 VBG Oxygen Liters/Min VBG pO2 VBG HCO3 VBG O2 Saturation VBG Base Excess Sodium 141 Potassium 5.6 H Chloride 107 Carbon Dioxide 30 H Anion Gap 10 L BUN 33 H Creatinine 0.73 Estim Creat Clear Calc 83.7 Estimated GFR > 60 POC Glucose 262 H Random Glucose 283 H D Calcium 7.2 L Phosphorus Magnesium Ferritin C-Reactive Protein Urine Osmolality 746 Ur Random Potassium 06/12/20 06/12/20 06/12/20 20:30 21:38 23:29 WBC RBC Hgb Hct MCV MCH MCHC RDW Plt Count MPV Absolute Nucleated RBC Nucleated RBC % (auto) D-Dimer VBG pH VBG pCO2 VBG Oxygen Liters/Min VBG pO2 VBG HCO3 VBG O2 Saturation VBG Base Excess Sodium Potassium Chloride Carbon Dioxide Anion Gap BUN Creatinine Estim Creat Clear Calc Estimated GFR POC Glucose 268 H 197 H Random Glucose Calcium Phosphorus Magnesium Ferritin C-Reactive Protein Urine Osmolality Ur Random Potassium 31.9 06/13/20 06/13/20 06/13/20 01:39 04:38 05:37 WBC 23.4 H RBC 3.59 L Hgb 10.6 L Hct 35.0 L MCV 97.5 MCH 29.5 MCHC 30.3 L RDW 14.2 Plt Count 369 MPV 12.5 H Absolute Nucleated RBC 0.000 Nucleated RBC % (auto) 0.0 D-Dimer VBG pH VBG pCO2 VBG Oxygen Liters/Min VBG pO2 VBG HCO3 VBG O2 Saturation VBG Base Excess Sodium Potassium Chloride Carbon Dioxide Anion Gap BUN Creatinine Estim Creat Clear Calc Estimated GFR POC Glucose 186 H 174 H Random Glucose Calcium Phosphorus Magnesium Ferritin C-Reactive Protein Urine Osmolality Ur Random Potassium 11/08/20 11/08/20 11/08/20 05:37 05:37 05:37 WBC RBC Hgb Hct MCV MCH MCHC RDW Plt Count MPV Absolute Nucleated RBC Nucleated RBC % (auto) D-Dimer 3227 VBG pH 7.36 VBG pCO2 57 VBG Oxygen Liters/Min TNP VBG pO2 46 VBG HCO3 31 VBG O2 Saturation 78.3 VBG Base Excess 4.3 Sodium 140 Potassium 5.2 H Chloride 106 Carbon Dioxide 30 H Anion Gap 9 L BUN 30 H Creatinine 0.64 Estim Creat Clear Calc 95.4 Estimated GFR > 60 POC Glucose Random Glucose 148 H D Calcium 7.4 L Phosphorus 3.3 Magnesium 2.5 Ferritin 917 H C-Reactive Protein 6.52 H Urine Osmolality Ur Random Potassium 06/13/20 06/13/20 07:55 11:48 WBC RBC Hgb Hct MCV MCH MCHC RDW Plt Count MPV Absolute Nucleated RBC Nucleated RBC % (auto) D-Dimer VBG pH VBG pCO2 VBG Oxygen Liters/Min VBG pO2 VBG HCO3 VBG O2 Saturation VBG Base Excess Sodium Potassium Chloride Carbon Dioxide Anion Gap BUN Creatinine Estim Creat Clear Calc Estimated GFR POC Glucose 140 H 134 H Random Glucose Calcium Phosphorus Magnesium Ferritin C-Reactive Protein Urine Osmolality Ur Random Potassium Microbiology Microbiology Results: Microbiology 06/10/20 05:47 Blood - Venous Blood Culture - Preliminary No growth after 48 hours. 06/10/20 05:47 Blood - Venous Blood Culture - Preliminary No growth after 48 hours. 06/09/20 15:39 Sputum - Suctioned Gram Stain - Final 06/09/20 15:39 Sputum - Suctioned Sputum Culture - Final 06/04/20 17:18 Blood - Venous Blood Culture - Final No growth after 5 days. 06/04/20 17:18 Blood - Venous Blood Culture - Final No growth after 5 days. 06/07/20 08:25 Sputum - Suctioned Gram Stain - Final 06/07/20 08:25 Sputum - Suctioned Sputum Culture - Final Progress Note: A&P Time Spent With Patient Time: Total time spent is greater than 50% in coordination of care (as documented) at patient's floor/unit and/or counseling patient: Total time spent with greater than 50% in coordination of care (as documented) at patient's floor/unit and/or counseling patient:: 0 Critical Care Time Critical Care Time (minutes): 60
--- NOTE | 2020-06-13 16:44 | PM.PNNEP ---
Subjective Subjective Interval history: Seen and examined. Events noted Physical Exam Vital Signs: Vital Signs: Last Vital Signs Temp 98.8 F 06/13/20 16:00 Pulse 77 06/13/20 16:00 Resp 19 06/13/20 16:00 BP 121/46 L 06/13/20 16:00 Pulse Ox 88 L 06/13/20 16:00 Body Mass Index 28.2 General: Resp: Other: vented Effort & Inspection: audible wheezes and respiratory distress ( Decreased breath sounds diffusely) Auscultation: rhonchi and wheezes Cardio: Jugular venous distension: no JVD Rate: regular rate and tachycardic Rhythm: regular rhythm GI: Inspection: Yes normal to inspection Palpation (GI): Soft to palpation and nontender Percussion: Yes normal to percussion Auscultation: normal bowel sounds : General: Yes no CVA tenderness Back/Spine/Pelvis: Back: no CVA tenderness Skin: General skin exam: no rashes or lesions noted Extrem: General: Yes normal to inspection and Yes no pedal edema Assessment & Plan Assessment and plan (1) COVID-19: Problem details: He has COVID and COPD exacerbation Status: Acute (2) COPD exacerbation: Status: Acute Assessment and Plan: 1. COVID Resp Failure cont on Vent support 2. Incr Bun/Cr: d/t steroids and ques IV vol depletion 3. Vol status: renal func preserved but at definite risk for DEE d/t COVID and cytokine ATN injury and thus need to keep adequately hydrated 4. HyperK: required kayex last nite; urine studies show inapp low urine K excretion..may be related to heparin or decrdistal Na delivery REC: cont kayexlate as needed to maintain K < 5.2 cont IVF and monitor UOP/renal func; avoid NToxins Time Spent With Patient Time: Total time spent is greater than 50% in coordination of care (as documented) at patient's floor/unit and/or counseling patient:
[2020-06-13 16:48] LABS: Glucose, Whole Blood 110 mg/dL (60-115)
[2020-06-13] MEDS: Melatonin 3 MG TABLET 9 MG PO (20:02)
[2020-06-13 20:05] LABS: Glucose, Whole Blood 103 mg/dL (60-115)
[2020-06-13 20:36] LABS: Glucose, Whole Blood 92 mg/dL (60-115)
[2020-06-14] VITALS (30 sets, daily range): BP systolic 116–151; BP diastolic 46–73; PULSE 72–87; RESP 16–26; TEMP 37.3–37.6; O2SAT 88–93; BMI 31.8
[2020-06-14] MEDS: Enoxaparin Sodium 80 MG/0.8 ML SYRINGE 75 MG SUBCUT (00:07)
[2020-06-14] MEDS: Thiamine HCL 200 MG in 0.9 % Sodium Chloride 100 ML 204 MG IV (00:07)
[2020-06-14] MEDS: methylPREDNISolone Sod Succ/PF 125 MG/2 ML VIAL 80 MG IVPUSH (00:09)
[2020-06-14] MEDS: 0.9 % Sodium Chloride Flush 3 ML SYRINGE IVFLUSH ×2 (00:09→09:13)
[2020-06-14 00:52] LABS: Glucose, Whole Blood 58 mg/dL (60-115)
[2020-06-14 00:52] LABS: Glucose, Whole Blood 127 mg/dL (60-115)
[2020-06-14] MEDS: propofoL 1,000 MG/100 ML VIAL 23.1 MG IVCONT ×6 (01:46→22:35)
[2020-06-14 01:58] LABS: Glucose, Whole Blood 104 mg/dL (60-115)
[2020-06-14 04:56] LABS: Glucose, Whole Blood 95 mg/dL (60-115)
[2020-06-14 05:48] LABS: Hematocrit 34.7 % (42-52); Hemoglobin 10.4 g/dl (14.0-18.0); Mean Corpuscular Hemoglobin 29.1 pg (27.0-33.0); Mean Corpuscular Volume 97.2 fL (80-98); Mean Platelet Volume 11.9 fL (9.4-12.4); Platelet Count 347 X10*3/uL (160-400); Red Blood Count 3.57 X10*6/uL (4.60-5.80); Red Cell Distribution Width 14.3 % (11.0-16.0); White Blood Count 21.9 X10*3/uL (4.8-10.8)
[2020-06-14 06:05] LABS: Base Excess VBG 5.6 mmol/L; HCO3 VBG 31 mmol/L; PCO2 VBG 50 mmhg; PO2 VBG 41 mmhg; pH VBG 7.41 (7.32-7.43)
[2020-06-14] MEDS: Insulin Regular/NS 100 UNIT/100 ML PLAST..BAG IVCONT (06:05)
[2020-06-14 06:06] LABS: D Dimer 2047 NG/ML
[2020-06-14 06:07] LABS: Oxygen Saturation VBG 74.7 %
[2020-06-14 06:19] LABS: Alanine Aminotransferase 69 U/L (0-40); Albumin Level 2.1 g/dL (3.5-5.0); Alkaline Phosphatase 122 U/L (39-117); Anion Gap 9 (12-20); Aspartate Amino Transferase 39 U/L (5-37); Bilirubin Total 0.4 mg/dL (0.0-1.0); Blood Urea Nitrogen 25 mg/dL (9-16); Calcium 7.2 mg/dL (8.4-10.2); Carbon Dioxide 34 mmol/L (22-29); Chloride 105 mmol/L (96-108); Estimated Glomerular Filt Rate > 60; Glucose Random 172 mg/dL (60-115); Magnesium 2.3 mg/dL (1.6-2.6); Phosphorus 3.8 mg/dL (2.7-4.5); Potassium 4.9 mmol/l (3.3-5.1); Sodium 143 mmol/L (135-145); Total Protein 4.8 g/dL (6.5-8.0)
[2020-06-14 06:36] LABS: Ferritin 815 ng/mL (20-250)
[2020-06-14 08:25] LABS: Procalcitonin 0.32 ng/mL
--- NOTE | 2020-06-14 09:12 | MHC.CM.PN ---
Pt remains intubated in ICU with Covid PNA. His FiO2 requirements remain very elevated at 70% and there are no plans to begin weaning at this time. MD has been in contact with pt's family and they are aware of pt's tenuous medical standing. D/C plan was to initially return to home without services, however, this seems highly unlikely. CM will follow for definitive d/c planning once pt's medical needs become better known.
[2020-06-14] MEDS: Famotidine 20 MG TABLET PO ×2 (09:14→20:08)
[2020-06-14] MEDS: methylPREDNISolone Sod Succ/PF 125 MG/2 ML VIAL 60 MG IVPUSH (09:14)
[2020-06-14 09:32] LABS: Glucose, Whole Blood 222 mg/dL (60-115)
--- NOTE | 2020-06-14 10:11 | MHC.CLN ---
F/U PT TOLERATING TF PROMOTE AT MAX GOAL RATE 60CC/HR WITH 120CC FREE WATER Q SHIFT PROVIDES 1440KCALS (2049KCALS WITH SEDATION; 30KCALS/KG), 90G PROTEIN (1.3G/KG), 1568CC TOTAL WATER FROM FORMULA AND FLUSHES NSG REPORTS-TOLERATING WELL ANASARCA NOTED-PT RECEIVING MAX AMOUNT OF PO PROTEIN VS. KCALS MONITOR RESIDUALS, TOLERANCE AND LYTES FOLLOWING
[2020-06-14] MEDS: Chlorhexidine Gluc Oral Rinse 15 ML MOUTHWASH BUCCAL ×3 (10:34→20:08)
--- NOTE | 2020-06-14 13:23 | PM.CCPN ---
Subjective Subjective Date of Service: 06/14/20 Interval History: One to [facility] 74-year-old gentleman with underlying history of COPD and hypertension admitted on 06/05/2020 with hypoxic respiratory failure secondary to COVID-19. Hospital course complicated by progressive hypoxemia requiring intubation and ventilatory support starting on 06/07/2020. Physical Exam Vital Signs: Vital Signs: Last Vital Signs Temp 99.5 F 06/14/20 13:00 Pulse 83 06/14/20 13:00 Resp 22 H 06/14/20 13:00 BP 130/59 L 06/14/20 13:00 Pulse Ox 90 L 06/14/20 13:00 Body Mass Index 31.8 Const: General: no acute distress and other ( Sedated on the vent, anasarca) Eyes: Sclerae: sclerae normal Neck: Neck: Yes no lymphadenopathy, Yes trachea midline and Yes supple Resp: Auscultation: crackles ( diffuse bilateral) Cardio: Rate: regular rate Rhythm: regular rhythm Heart sounds: no gallops, no murmurs and no rubs GI: Palpation (GI): Soft to palpation and Other GI palpation findings present ( Nontender) Auscultation: normal bowel sounds Extrem: General: Yes no pedal edema, No clubbing, No cyanosis and Yes edema ( 2+ bilateral) Objective Data Labs CBC & Chem 7: 06/14/20 05:35 06/14/20 05:35 Labs: Laboratory Results - last 24 hr 06/13/20 06/13/20 06/13/20 11:48 16:34 18:03 WBC RBC Hgb Hct MCV MCH MCHC RDW Plt Count MPV Absolute Nucleated RBC Nucleated RBC % (auto) D-Dimer VBG pH VBG pCO2 VBG Oxygen Liters/Min VBG pO2 VBG HCO3 VBG O2 Saturation VBG Base Excess Sodium Potassium Chloride Carbon Dioxide Anion Gap BUN Creatinine Estim Creat Clear Calc Estimated GFR POC Glucose 134 H 110 103 Random Glucose Calcium Phosphorus Magnesium Ferritin Total Bilirubin AST ALT Alkaline Phosphatase C-Reactive Protein Total Protein Albumin Procalcitonin 06/13/20 06/14/20 06/14/20 20:10 00:12 00:41 WBC RBC Hgb Hct MCV MCH MCHC RDW Plt Count MPV Absolute Nucleated RBC Nucleated RBC % (auto) D-Dimer VBG pH VBG pCO2 VBG Oxygen Liters/Min VBG pO2 VBG HCO3 VBG O2 Saturation VBG Base Excess Sodium Potassium Chloride Carbon Dioxide Anion Gap BUN Creatinine Estim Creat Clear Calc Estimated GFR POC Glucose 92 58 L* 127 H Random Glucose Calcium Phosphorus Magnesium Ferritin Total Bilirubin AST ALT Alkaline Phosphatase C-Reactive Protein Total Protein Albumin Procalcitonin 06/14/20 06/14/20 06/14/20 01:51 04:38 05:35 WBC 21.9 H RBC 3.57 L Hgb 10.4 L Hct 34.7 L MCV 97.2 MCH 29.1 MCHC 30.0 L RDW 14.3 Plt Count 347 MPV 11.9 Absolute Nucleated RBC 0.000 Nucleated RBC % (auto) 0.0 D-Dimer VBG pH VBG pCO2 VBG Oxygen Liters/Min VBG pO2 VBG HCO3 VBG O2 Saturation VBG Base Excess Sodium Potassium Chloride Carbon Dioxide Anion Gap BUN Creatinine Estim Creat Clear Calc Estimated GFR POC Glucose 104 95 Random Glucose Calcium Phosphorus Magnesium Ferritin Total Bilirubin AST ALT Alkaline Phosphatase C-Reactive Protein Total Protein Albumin Procalcitonin 06/14/20 06/14/20 06/14/20 05:35 05:35 05:35 WBC RBC Hgb Hct MCV MCH MCHC RDW Plt Count MPV Absolute Nucleated RBC Nucleated RBC % (auto) D-Dimer 2047 VBG pH VBG pCO2 VBG Oxygen Liters/Min VBG pO2 VBG HCO3 VBG O2 Saturation VBG Base Excess Sodium 143 Potassium 4.9 Chloride 105 Carbon Dioxide 34 H Anion Gap 9 L BUN 25 H Creatinine 0.64 Estim Creat Clear Calc 101.0 Estimated GFR > 60 POC Glucose Random Glucose 172 H Calcium 7.2 L Phosphorus 3.8 Magnesium 2.3 Ferritin 815 H Total Bilirubin 0.4 AST 39 H ALT 69 H Alkaline Phosphatase 122 H C-Reactive Protein 5.60 H Total Protein 4.8 L Albumin 2.1 L Procalcitonin 0.32 06/14/20 06/14/20 05:35 09:20 WBC RBC Hgb Hct MCV MCH MCHC RDW Plt Count MPV Absolute Nucleated RBC Nucleated RBC % (auto) D-Dimer VBG pH 7.41 VBG pCO2 50 VBG Oxygen Liters/Min TNP VBG pO2 41 VBG HCO3 31 VBG O2 Saturation 74.7 VBG Base Excess 5.6 Sodium Potassium Chloride Carbon Dioxide Anion Gap BUN Creatinine Estim Creat Clear Calc Estimated GFR POC Glucose 222 H Random Glucose Calcium Phosphorus Magnesium Ferritin Total Bilirubin AST ALT Alkaline Phosphatase C-Reactive Protein Total Protein Albumin Procalcitonin Microbiology Microbiology Results: Microbiology 06/10/20 05:47 Blood - Venous Blood Culture - Preliminary No growth after 48 hours. 06/10/20 05:47 Blood - Venous Blood Culture - Preliminary No growth after 48 hours. 06/09/20 15:39 Sputum - Suctioned Gram Stain - Final 06/09/20 15:39 Sputum - Suctioned Sputum Culture - Final 06/04/20 17:18 Blood - Venous Blood Culture - Final No growth after 5 days. 06/04/20 17:18 Blood - Venous Blood Culture - Final No growth after 5 days. 06/07/20 08:25 Sputum - Suctioned Gram Stain - Final 06/07/20 08:25 Sputum - Suctioned Sputum Culture - Final Progress Note: A&P Assessment and plan (1) COVID-19: Status: Acute Assessment and Plan: Assessment: 74-year-old gentleman admitted with acute hypoxic respiratory failure secondary to COVID-19 ARDS, now requiring ventilatory support. Plan: Neuro: No acute issues. Cardiac: No acute issues. Pulmonary: Acute hypoxic respiratory failure secondary to COVID-19 ARDS requiring ventilatory support. Continue to titrate off ventilatory support as tolerated. Continue systemic glucocorticoids. Renal: No acute issues. Endo: No acute issues. GI: No acute issues. ID: No acute issues Heme/Onc: No acute issues. Psych: No acute issues. Miscellaneous: No acute issues. Prophylaxis: Lovenox, famotidine Diet: tube feeds Critical care time spent: 90 minutes (2) Respiratory failure, unspecified with hypoxia: Status: Acute Time Spent With Patient Time: Total time spent is greater than 50% in coordination of care (as documented) at patient's floor/unit and/or counseling patient: Total time spent with greater than 50% in coordination of care (as documented) at patient's floor/unit and/or counseling patient:: 0 Critical Care Time Critical Care Time (minutes): 90
[2020-06-14] MEDS: Insulin Glargine,Hum.rec.anlog 100 UNIT/ML 10 ML VIAL 40 UNIT SUBCUT (13:42)
[2020-06-14] MEDS: Albumin Human 25 % 100 ML IV ×2 (13:43→20:08)
[2020-06-14 14:13] LABS: Glucose, Whole Blood 312 mg/dL (60-115)
[2020-06-14] MEDS: Insulin Lispro 100 UNIT/ML 3 ML VIAL SUBCUT (18:30)
[2020-06-14 18:32] LABS: Glucose, Whole Blood 311 mg/dL (60-115)
[2020-06-15] VITALS (36 sets, daily range): BP systolic 87–147; BP diastolic 39–67; PULSE 65–110; RESP 20–31; TEMP 25–38.6; O2SAT 82–97
--- NOTE | 2020-06-15 | XR_ITS ---
EXAMINATION: CHEST 1 VIEW CLINICAL INFORMATION: Hypoxia. Intubated. COMPARISON: Multiple prior exams are reviewed. The most recent is from 06/12/2020. TECHNIQUE: An AP view of the chest is provided. FINDINGS: The cardiac silhouette is stable. The tip of the endotracheal tube is approximately 3.5 cm above the harish. The enteric tube and right central venous line are in unchanged position. Patchy multifocal airspace opacification is stable. There are neither pleural effusions nor pneumothoraces. The osseous structures are stable. XR/XR chest 1V IMPRESSION: Lines and tubes in place as stated above. The tip of the endotracheal tube is approximately 3.5 cm above the harish. Stable patchy multifocal airspace disease concerning for pneumonia.
[2020-06-15] MEDS: 0.9 % Sodium Chloride Flush 3 ML SYRINGE IVFLUSH ×4 (00:05→15:48)
[2020-06-15] MEDS: Insulin Lispro 100 UNIT/ML 3 ML VIAL SUBCUT ×3 (00:09→18:21)
[2020-06-15 00:10] LABS: Glucose, Whole Blood 243 mg/dL (60-115)
[2020-06-15] MEDS: Albuterol/Iprat 2.5/0.5MG 3 ML AMPUL.NEB INHALE ×3 (00:31→06:55)
[2020-06-15] MEDS: propofoL 1,000 MG/100 ML VIAL 23.1 MG IVCONT ×7 (01:05→23:33)
[2020-06-15] MEDS: Albumin Human 25 % 100 ML IV ×2 (01:06→08:45)
[2020-06-15] MEDS: HYDROmorphone HCl 0.5 MG/0.5 ML SYRINGE IVPUSH (02:40)
[2020-06-15] MEDS: Acetaminophen 325 MG TABLET 650 MG PO (03:12)
--- NOTE | 2020-06-15 04:03 | PC.NURSE ---
Addendum entered by Luca Marino RN 06/15/20 04:13: FLUID (+) PAST 5 DAYS...CURRENTLY THIS SHIFT OUTPUT>INTAKE 10PM-PRESENT Original Note: CARE ASSUMED 23:15---REMAINS TUBED/VENTED--HS VENT =AC14/TV 450/FIO2 70%/PEEP 14...RR 24-28...SAO2 89-90%...SEDATED WITH PROPOFOL 50 MCG/KG/MIN...BP STABLE...LEVOPHED WEANED OFF FROM 0.03 MCG/KG/MIN AT SHIFT CHANGE...IRRITABLE AND DESATS WITH ATTEMPTED WEANIN G OF PROPOFOL...MULTIPLE EPISODES OF DESATURATION...BAGGED/LAVAGED FOR SMALL/MODERATE THICK BLOOD-TINGE CREAMY SPUTUM...ICU PA & RT PRESENT DURING EPISODES OF DESATURATION...PCV MODE TRIALED W/O EFFECT...MULTIPLE VENT CHANGES DONE...STAT CXR...PER ICU PA ?ARDS...REMAINS WITH MILD JVD AND FINE CRACKLES LOWER HERNANDEZ...FLUID BALANCE REVIEWED...REMAINS WITH OUTPUT>INTAKE...CURRENT VENT= VCV MODE--AC 20/TV 400/FIO2 100%/PEEP 18..PER PA SAO2 GOAL 86% OR GREATER..CURRENT SAO2=88-89%..PER ICU PA TYLENOL GIVEN FOR TEMP 100.0-100.2 CORE
[2020-06-15 05:41] LABS: Basophils Percent Auto 0.1 % (0-2); Eosinophils Percent Auto 0.1 % (0-4); Hematocrit 28.8 % (42-52); Hemoglobin 8.7 g/dl (14.0-18.0); Imm Gran Abs Auto 0.41 X10*3/uL (0.00-0.03); Imm Gran Pct Auto 2.4 % (0.0-0.4); Lymphocytes Absolute Auto 0.8 X10*3/uL (1.2-4.9); Lymphocytes Percent Auto 4.7 % (20-40); MANUAL DIFF FLAG SCAN; Mean Corpuscular HGB Conc 30.2 g/dl (31.0-36.0); Mean Corpuscular Hemoglobin 29.9 pg (27.0-33.0); Mean Platelet Volume 11.6 fL (9.4-12.4); Monocytes Absolute Auto 0.4 X10*3/uL (0.1-1.2); Monocytes Percent Auto 2.5 % (2-11); Neutrophils Absolute Auto 15.5 X10*3/uL (2.0-8.3); Neutrophils Percent Auto 90.2 % (45-73); Platelet Count 244 X10*3/uL (160-400); Red Blood Count 2.91 X10*6/uL (4.60-5.80); Red Cell Distribution Width 14.3 % (11.0-16.0); SCAN SMEAR FLAG 1; White Blood Count 17.1 X10*3/uL (4.8-10.8)
[2020-06-15 05:55] LABS: HCO3 VBG 37 mmol/L; PCO2 VBG 76 mmhg; PO2 VBG 48 mmhg; pH VBG 7.31 (7.32-7.43)
[2020-06-15 05:56] LABS: Oxygen Saturation VBG 76.9 %
--- NOTE | 2020-06-15 06:20 | PC.NURSE ---
sao2 83-85% ac 20/tv 400/fio2 100%/peep 18...icu pa present and aware..stat bnp ordered
[2020-06-15 06:24] LABS: SLIDE REVIEW VERIFIED
[2020-06-15 06:25] LABS: Alanine Aminotransferase 40 U/L (0-40); Albumin Level 3.1 g/dL (3.5-5.0); Alkaline Phosphatase 90 U/L (39-117); Anion Gap 6 (12-20); Aspartate Amino Transferase 19 U/L (5-37); Bilirubin Total 0.3 mg/dL (0.0-1.0); Blood Urea Nitrogen 34 mg/dL (9-16); Calcium 8.1 mg/dL (8.4-10.2); Carbon Dioxide 38 mmol/L (22-29); Chloride 103 mmol/L (96-108); Creatinine Clr Calc Pharmacy 92.4; Estimated Glomerular Filt Rate > 60; Glucose Random 158 mg/dL (60-115); Magnesium 2.5 mg/dL (1.6-2.6); Phosphorus 2.7 mg/dL (2.7-4.5); Potassium 4.8 mmol/l (3.3-5.1); Sodium 142 mmol/L (135-145); Total Protein 5.1 g/dL (6.5-8.0)
[2020-06-15 06:33] LABS: Glucose, Whole Blood 141 mg/dL (60-115)
[2020-06-15 06:48] LABS: B Type Natriuretic Peptide 147 pg/mL (<100)
[2020-06-15] MEDS: Cisatracurium Besylate 20 MG/10 ML VIAL 10 MG IVPUSH (08:10)
--- NOTE | 2020-06-15 08:12 | W.PM.CCHP ---
Procedures Bronchoscopy Consent for Procedure: Emergent-no informed consent obtained Indication: other ( refractory hypoxemia, elevated peak pressures) Procedure: Patient with several episodes of refractory hypoxemia this a.m. with elevated peak pressures. Emergent bedside bronchoscopy performed - via the present endotracheal tube. Bronchoscope advanced through the tracheobronchial tree with small amount of mucus noted and cleared. Now significant mucus plugs noted. Underlying mucosa normal looking. Route: endotracheal tube Sedation/Analgesia: other ( Propofol) Monitor: EKG and pulse oximetry Complications: hypoxemia
[2020-06-15] MEDS: Chlorhexidine Gluc Oral Rinse 15 ML MOUTHWASH BUCCAL ×3 (08:46→20:01)
[2020-06-15] MEDS: Famotidine 20 MG TABLET PO ×3 (08:47→20:01)
[2020-06-15] MEDS: methylPREDNISolone Sod Succ/PF 125 MG/2 ML VIAL 60 MG IVPUSH (08:47)
[2020-06-15] MEDS: Enoxaparin Sodium 40 MG/0.4 ML SYRINGE SUBCUT (08:47)
[2020-06-15] MEDS: Insulin Glargine,Hum.rec.anlog 100 UNIT/ML 10 ML VIAL 40 UNIT SUBCUT (08:48)
[2020-06-15] MEDS: Furosemide 40 MG/4 ML VIAL IVPUSH (08:50)
--- NOTE | 2020-06-15 10:23 | PC.NURSE ---
PT SEDATED ON PROPOFOL, GIVEN 1X DOSE NIMBEX ALSO GIVEN FENTANYL 100MCG FOR VENTILATION SYNCHRONY DAUGHTER UPDATED BY PHYSICIAN DRAKE GRADE SKYLAR
[2020-06-15] MEDS: fentaNYL citrate/PF 100 MCG/2 ML VIAL IVPUSH (10:40)
[2020-06-15 12:47] LABS: Glucose, Whole Blood 224 mg/dL (60-115)
--- NOTE | 2020-06-15 14:54 | PC.NURSE ---
OBVIOUS IMPROVEMENT IN SYNCHRONY WITH NIMBEX INFUSION 2MCG/KG/MIN NO CHANGE MADE IN PROPOFOL VENT SETTINGS UNCHANGED TUBE FEEDS ON HOLD, MD AWARE OF POSSIBLE BLOOD NOTED IN GASTRIC CONTINENT RECTAL TUBE PATENT MINIMAL OUTPUT GREAT RESPONSE TO LASIX AND ALBUMIN PT BETTER ABLE TO TOLERATE REPOSITIONING THIS AFTERNOON SATURATIONS HAVE STAYED ABOVE 90% ON 100% POC COVERED PER SLIDING SCALE TLC WNL SOS GIVEN BY FATHER JUSTO UPDATED DAUGHTER BY DR CASTLE
--- NOTE | 2020-06-15 15:07 | P.PNCC_ITS ---
Subjective Subjective Date of Service: 06/15/20 Interval History: 74-year-old gentleman with underlying history of COPD and hypertension admitted on 06/05/2020 with hypoxic respiratory failure secondary to COVID-19. Hospital course complicated by progressive hypoxemia requiring intubation and ventilatory support starting on 06/07/2020. Over the last 3 days with slowly progressive hypoxemia, now essentially on maximum ventilatory support. Physical Exam Vital Signs: Vital Signs: Last Vital Signs Temp 99.7 F 06/15/20 15:00 Pulse 85 06/15/20 15:00 Resp 20 06/15/20 15:00 BP 109/41 L 06/15/20 15:00 Pulse Ox 92 06/15/20 15:00 Body Mass Index 31.8 Const: General: no acute distress and other ( sedated on the vent) Eyes: Sclerae: sclerae normal Neck: Neck: Yes no lymphadenopathy, Yes trachea midline and Yes supple Resp: Auscultation: crackles ( diffuse bilateral) Cardio: Rate: regular rate Rhythm: regular rhythm Heart sounds: no gallops, no murmurs and no rubs GI: Palpation (GI): Soft to palpation and Other GI palpation findings present ( Nontender) Auscultation: normal bowel sounds Extrem: General: No clubbing, No cyanosis and Yes edema ( 1+ bilateral) Objective Data Labs CBC & Chem 7: 06/15/20 05:30 06/15/20 05:30 Labs: Laboratory Results - last 24 hr 06/14/20 06/14/20 06/15/20 17:56 23:24 04:57 WBC RBC Hgb Hct MCV MCH MCHC RDW Plt Count MPV Immature Gran % (Auto) Neut % (Auto) Lymph % (Auto) [place] % (Auto) Eos % (Auto) Baso % (Auto) Lymph # (Auto) [place] # (Auto) Eos # (Auto) Baso # (Auto) Abs Immat Gran (auto) Absolute Neuts (auto) Absolute Nucleated RBC Nucleated RBC % (auto) Smear Tech's Comments VBG pH VBG pCO2 VBG Oxygen Liters/Min VBG pO2 VBG HCO3 VBG O2 Saturation VBG Base Excess Sodium Potassium Chloride Carbon Dioxide Anion Gap BUN Creatinine Estim Creat Clear Calc Estimated GFR POC Glucose 311 H 243 H 141 H Random Glucose Calcium Phosphorus Magnesium Total Bilirubin AST ALT Alkaline Phosphatase B-Natriuretic Peptide Total Protein Albumin 06/15/20 06/15/20 06/15/20 05:30 05:30 05:30 WBC 17.1 H RBC 2.91 L Hgb 8.7 L Hct 28.8 L MCV 99.0 H MCH 29.9 MCHC 30.2 L RDW 14.3 Plt Count 244 D MPV 11.6 Immature Gran % (Auto) 2.4 H Neut % (Auto) 90.2 H Lymph % (Auto) 4.7 L [place] % (Auto) 2.5 Eos % (Auto) 0.1 Baso % (Auto) 0.1 Lymph # (Auto) 0.8 L [place] # (Auto) 0.4 Eos # (Auto) 0.0 Baso # (Auto) 0.0 Abs Immat Gran (auto) 0.41 H Absolute Neuts (auto) 15.5 H Absolute Nucleated RBC 0.000 Nucleated RBC % (auto) 0.0 Smear Tech's Comments VERIFIED VBG pH 7.31 L VBG pCO2 76 VBG Oxygen Liters/Min TNP VBG pO2 48 VBG HCO3 37 VBG O2 Saturation 76.9 VBG Base Excess 9.0 Sodium 142 Potassium 4.8 Chloride 103 Carbon Dioxide 38 H Anion Gap 6 L BUN 34 H Creatinine 0.70 Estim Creat Clear Calc 92.4 Estimated GFR > 60 POC Glucose Random Glucose 158 H Calcium 8.1 L D Phosphorus 2.7 Magnesium 2.5 Total Bilirubin 0.3 AST 19 D ALT 40 Alkaline Phosphatase 90 D B-Natriuretic Peptide Total Protein 5.1 L Albumin 3.1 L D 06/15/20 06/15/20 05:30 12:27 WBC RBC Hgb Hct MCV MCH MCHC RDW Plt Count MPV Immature Gran % (Auto) Neut % (Auto) Lymph % (Auto) [place] % (Auto) Eos % (Auto) Baso % (Auto) Lymph # (Auto) [place] # (Auto) Eos # (Auto) Baso # (Auto) Abs Immat Gran (auto) Absolute Neuts (auto) Absolute Nucleated RBC Nucleated RBC % (auto) Smear Tech's Comments VBG pH VBG pCO2 VBG Oxygen Liters/Min VBG pO2 VBG HCO3 VBG O2 Saturation VBG Base Excess Sodium Potassium Chloride Carbon Dioxide Anion Gap BUN Creatinine Estim Creat Clear Calc Estimated GFR POC Glucose 224 H Random Glucose Calcium Phosphorus Magnesium Total Bilirubin AST ALT Alkaline Phosphatase B-Natriuretic Peptide 147 H Total Protein Albumin Microbiology Microbiology Results: Microbiology 06/10/20 05:47 Blood - Venous Blood Culture - Final No growth after 5 days. 06/10/20 05:47 Blood - Venous Blood Culture - Final No growth after 5 days. 06/09/20 15:39 Sputum - Suctioned Gram Stain - Final 06/09/20 15:39 Sputum - Suctioned Sputum Culture - Final 06/04/20 17:18 Blood - Venous Blood Culture - Final No growth after 5 days. 06/04/20 17:18 Blood - Venous Blood Culture - Final No growth after 5 days. 06/07/20 08:25 Sputum - Suctioned Gram Stain - Final 06/07/20 08:25 Sputum - Suctioned Sputum Culture - Final Progress Note: A&P Assessment and plan (1) COVID-19: Status: Acute Assessment and Plan: Assessment: 74-year-old gentleman admitted with acute hypoxic respiratory failure secondary to COVID-19 ARDS, now requiring ventilatory support. Plan: Neuro: No acute issues. Cardiac: No acute issues. Pulmonary: Acute hypoxic respiratory failure secondary to COVID-19 ARDS requiring ventilatory support. Slowly progressive, now on maximum ventilatory support. Several episodes of desaturation related today. Emergent bedside bronchoscopy performed for secretions clearance. Continue systemic glucocorticoids. Renal: No acute issues. Endo: No acute issues. GI: No acute issues. ID: No acute issues Heme/Onc: No acute issues. Psych: No acute issues. Miscellaneous: No acute issues. overall very poor prognosis. Discussed with his daughter/healthcare proxy. Family considering code status change. Prophylaxis: Lovenox, famotidine Diet: tube feeds Critical care time spent: 90 minutes excluding separately billable procedures (2) Respiratory failure, unspecified with hypoxia: Status: Acute Time Spent With Patient Time: Total time spent is greater than 50% in coordination of care (as documented) at patient's floor/unit and/or counseling patient: Total time spent with greater than 50% in coordination of care (as documented) at patient's floor/unit and/or counseling patient:: 0 Critical Care Time Critical Care Time (minutes): 90
[2020-06-15 18:22] LABS: Glucose, Whole Blood 161 mg/dL (60-115)
[2020-06-16] VITALS (32 sets, daily range): BP systolic 93–152; BP diastolic 41–80; PULSE 66–97; RESP 20–24; TEMP 36.7–37.7; O2SAT 85–98
--- NOTE | 2020-06-16 | XR_ITS ---
EXAMINATION: XR CHEST CLINICAL INFORMATION: Dyspnea COMPARISON: Previous chest x-rays most recent 06/15/2020 TECHNIQUE: Frontal view of the chest was obtained. FINDINGS: There is an endotracheal tube with tip 6.8 cm above the harish. There is a nasogastric tube that projects over the stomach. Tip is not seen. There is a right subclavian line with tip projecting over the SVC. The cardiac and mediastinal contours are stable. There is bilateral multilobar airspace disease. This does not appear appreciably changed from yesterday's exam. There is no pleural effusion or pneumothorax. There are degenerative changes of the spine. XR/XR chest 1V IMPRESSION: Satisfactory position of endotracheal tube and right subclavian line. Nasogastric tube projects over stomach, tip not seen. No appreciable change in the bilateral multilobar airspace disease from yesterday's exam.
--- NOTE | 2020-06-16 | US_ITS ---
EXAMINATION: US DOPPLER UPPER EXTREMITY, LEFT CLINICAL INFORMATION: Swelling COMPARISON: None TECHNIQUE: Doppler ultrasound left upper extremity. FINDINGS: The internal jugular vein is enlarged. No evidence of thrombosis in the visualized left internal jugular vein, subclavian, axillary, brachial, basilic veins. Limited evaluation of the cephalic vein and the ulnar vein in the forearm due to edema. US/US venous duplex UE LT IMPRESSION: 1. Limited evaluation of the cephalic vein and the ulnar vein in the forearm due to soft tissue edema. Short-term follow-up ultrasound can be obtained for reassessment as clinically warranted. 2. No evidence of deep vein thrombosis otherwise.
[2020-06-16 01:05] LABS: Glucose, Whole Blood 102 mg/dL (60-115)
[2020-06-16] MEDS: propofoL 1,000 MG/100 ML VIAL 23.1 MG IVCONT ×2 (03:31→07:57)
[2020-06-16 06:02] LABS: Basophils Percent Auto 0.1 % (0-2); Eosinophils Absolute Auto 0.1 X10*3/uL (0.0-0.4); Eosinophils Percent Auto 0.3 % (0-4); Hematocrit 27.4 % (42-52); Hemoglobin 8.2 g/dl (14.0-18.0); Imm Gran Abs Auto 0.35 X10*3/uL (0.00-0.03); Imm Gran Pct Auto 2.3 % (0.0-0.4); Lymphocytes Absolute Auto 0.5 X10*3/uL (1.2-4.9); Lymphocytes Percent Auto 3.4 % (20-40); MANUAL DIFF FLAG SCAN; Mean Corpuscular HGB Conc 29.9 g/dl (31.0-36.0); Mean Corpuscular Hemoglobin 29.7 pg (27.0-33.0); Mean Corpuscular Volume 99.3 fL (80-98); Monocytes Absolute Auto 0.3 X10*3/uL (0.1-1.2); Monocytes Percent Auto 2.2 % (2-11); Neutrophils Percent Auto 91.7 % (45-73); Platelet Count 227 X10*3/uL (160-400); Red Blood Count 2.76 X10*6/uL (4.60-5.80); Red Cell Distribution Width 14.5 % (11.0-16.0); SCAN SMEAR FLAG 1; White Blood Count 15.3 X10*3/uL (4.8-10.8)
--- NOTE | 2020-06-16 06:18 | PC.NURSE ---
remains tubed/vented...vcv...ac 20/tv 400/fio2 100%/peep 18..sao2 95-96...continues on nimbex and propofol drips..rr controlled on ac settings...bp/hr stable...bryant 50-70cc/hr..no stool overnight...og-tube aspirated scant brown-black drainage...feeds remain on hold...am poc glucose=57...d50% 1 amp iv per icu pa...poc glucose f/u=113
[2020-06-16 06:31] LABS: SLIDE REVIEW VERIFIED
[2020-06-16 06:32] LABS: PCO2 VBG 63 mmhg; PO2 VBG 51 mmhg
[2020-06-16 06:33] LABS: Base Excess VBG 12.9 mmol/L; HCO3 VBG 39 mmol/L; Oxygen Saturation VBG 82.5 %
[2020-06-16 06:41] LABS: Albumin Level 2.9 g/dL (3.5-5.0); Anion Gap 7 (12-20); Blood Urea Nitrogen 38 mg/dL (9-16); Calcium 8.1 mg/dL (8.4-10.2); Carbon Dioxide 40 mmol/L (22-29); Chloride 102 mmol/L (96-108); Estimated Glomerular Filt Rate > 60; Glucose Random 57 mg/dL (60-115); Magnesium 2.6 mg/dL (1.6-2.6); Phosphorus 3.4 mg/dL (2.7-4.5); Potassium 4.4 mmol/l (3.3-5.1); Sodium 145 mmol/L (135-145)
[2020-06-16 06:54] LABS: Glucose, Whole Blood 113 mg/dL (60-115)
[2020-06-16 06:54] LABS: Glucose, Whole Blood 57 mg/dL (60-115)
[2020-06-16] MEDS: Famotidine 20 MG TABLET PO (07:58)
[2020-06-16] MEDS: Chlorhexidine Gluc Oral Rinse 15 ML MOUTHWASH BUCCAL ×3 (07:58→19:32)
[2020-06-16] MEDS: methylPREDNISolone Sod Succ/PF 125 MG/2 ML VIAL 60 MG IVPUSH (07:58)
[2020-06-16] MEDS: Enoxaparin Sodium 40 MG/0.4 ML SYRINGE SUBCUT (10:19)
[2020-06-16] MEDS: 0.9 % Sodium Chloride Flush 3 ML SYRINGE IVFLUSH ×2 (10:20→15:26)
--- NOTE | 2020-06-16 11:34 | MHC.CLN ---
F/U TF REMAIN ON HOLD SINCE 06/15 FOLLOWING
[2020-06-16 11:38] LABS: Glucose, Whole Blood 124 mg/dL (60-115)
[2020-06-16 11:38] LABS: Glucose, Whole Blood 124 mg/dL (60-115)
--- NOTE | 2020-06-16 12:13 | P.PNCC_ITS ---
Subjective Subjective Date of Service: 06/16/20 Interval History: Interval History: 74-year-old gentleman with underlying history of COPD and hypertension admitted on 06/05/2020 with hypoxic respiratory failure secondary to COVID-19. Hospital course complicated by progressive hypoxemia requiring intubation and ventilatory support starting on 06/07/2020. No events overnight. Physical Exam Vital Signs: Vital Signs: Last Vital Signs Temp 98.6 F 06/16/20 11:00 Pulse 92 06/16/20 11:00 Resp 20 06/16/20 11:00 BP 147/63 H 06/16/20 11:00 Pulse Ox 92 06/16/20 11:00 Body Mass Index 31.8 Const: General: no acute distress and other ( Sedated on the vent) Eyes: Sclerae: sclerae normal Neck: Neck: Yes no lymphadenopathy, Yes trachea midline and Yes supple Resp: Auscultation: crackles bilateral and diffuse Cardio: Rate: regular rate Rhythm: regular rhythm Heart sounds: no gallops, no murmurs and no rubs GI: Palpation (GI): Soft to palpation and Other GI palpation findings present ( Nontender) Auscultation: normal bowel sounds Extrem: General: No clubbing, No cyanosis, Yes edema ( 1+ bilateral) and Yes other ( left upper extremity cool and swollen) Objective Data Labs CBC & Chem 7: 06/16/20 05:50 06/16/20 05:50 Labs: Laboratory Results - last 24 hr 06/15/20 06/15/20 06/15/20 12:27 18:17 23:38 WBC RBC Hgb Hct MCV MCH MCHC RDW Plt Count MPV Immature Gran % (Auto) Neut % (Auto) Lymph % (Auto) [place] % (Auto) Eos % (Auto) Baso % (Auto) Lymph # (Auto) [place] # (Auto) Eos # (Auto) Baso # (Auto) Abs Immat Gran (auto) Absolute Neuts (auto) Absolute Nucleated RBC Nucleated RBC % (auto) Smear Tech's Comments VBG pH VBG pCO2 VBG Oxygen Liters/Min VBG pO2 VBG HCO3 VBG O2 Saturation VBG Base Excess Sodium Potassium Chloride Carbon Dioxide Anion Gap BUN Creatinine Estim Creat Clear Calc Estimated GFR POC Glucose 224 H 161 H 102 Random Glucose Calcium Phosphorus Magnesium Albumin 06/16/20 06/16/20 06/16/20 05:36 05:50 05:50 WBC 15.3 H RBC 2.76 L Hgb 8.2 L Hct 27.4 L MCV 99.3 H MCH 29.7 MCHC 29.9 L RDW 14.5 Plt Count 227 MPV 12.0 Immature Gran % (Auto) 2.3 H Neut % (Auto) 91.7 H Lymph % (Auto) 3.4 L [place] % (Auto) 2.2 Eos % (Auto) 0.3 Baso % (Auto) 0.1 Lymph # (Auto) 0.5 L [place] # (Auto) 0.3 Eos # (Auto) 0.1 Baso # (Auto) 0.0 Abs Immat Gran (auto) 0.35 H Absolute Neuts (auto) 14.0 H Absolute Nucleated RBC 0.000 Nucleated RBC % (auto) 0.0 Smear Tech's Comments VERIFIED VBG pH VBG pCO2 VBG Oxygen Liters/Min VBG pO2 VBG HCO3 VBG O2 Saturation VBG Base Excess Sodium 145 Potassium 4.4 Chloride 102 Carbon Dioxide 40 H* Anion Gap 7 L BUN 38 H Creatinine 0.61 Estim Creat Clear Calc 106.0 Estimated GFR > 60 POC Glucose 57 L* Random Glucose 57 L* Calcium 8.1 L Phosphorus 3.4 Magnesium 2.6 Albumin 2.9 L 06/16/20 06/16/20 06/16/20 05:50 05:58 08:04 WBC RBC Hgb Hct MCV MCH MCHC RDW Plt Count MPV Immature Gran % (Auto) Neut % (Auto) Lymph % (Auto) [place] % (Auto) Eos % (Auto) Baso % (Auto) Lymph # (Auto) [place] # (Auto) Eos # (Auto) Baso # (Auto) Abs Immat Gran (auto) Absolute Neuts (auto) Absolute Nucleated RBC Nucleated RBC % (auto) Smear Tech's Comments VBG pH 7.40 VBG pCO2 63 VBG Oxygen Liters/Min Not Reportable VBG pO2 51 VBG HCO3 39 VBG O2 Saturation 82.5 VBG Base Excess 12.9 Sodium Potassium Chloride Carbon Dioxide Anion Gap BUN Creatinine Estim Creat Clear Calc Estimated GFR POC Glucose 113 124 H Random Glucose Calcium Phosphorus Magnesium Albumin 06/16/20 11:31 WBC RBC Hgb Hct MCV MCH MCHC RDW Plt Count MPV Immature Gran % (Auto) Neut % (Auto) Lymph % (Auto) [place] % (Auto) Eos % (Auto) Baso % (Auto) Lymph # (Auto) [place] # (Auto) Eos # (Auto) Baso # (Auto) Abs Immat Gran (auto) Absolute Neuts (auto) Absolute Nucleated RBC Nucleated RBC % (auto) Smear Tech's Comments VBG pH VBG pCO2 VBG Oxygen Liters/Min VBG pO2 VBG HCO3 VBG O2 Saturation VBG Base Excess Sodium Potassium Chloride Carbon Dioxide Anion Gap BUN Creatinine Estim Creat Clear Calc Estimated GFR POC Glucose 124 H Random Glucose Calcium Phosphorus Magnesium Albumin Microbiology Microbiology Results: Microbiology 06/10/20 05:47 Blood - Venous Blood Culture - Final No growth after 5 days. 06/10/20 05:47 Blood - Venous Blood Culture - Final No growth after 5 days. 06/09/20 15:39 Sputum - Suctioned Gram Stain - Final 06/09/20 15:39 Sputum - Suctioned Sputum Culture - Final 06/04/20 17:18 Blood - Venous Blood Culture - Final No growth after 5 days. 06/04/20 17:18 Blood - Venous Blood Culture - Final No growth after 5 days. 06/07/20 08:25 Sputum - Suctioned Gram Stain - Final 06/07/20 08:25 Sputum - Suctioned Sputum Culture - Final Progress Note: A&P Assessment and plan (1) Respiratory failure, unspecified with hypoxia: Status: Acute Assessment and Plan: Assessment: 74-year-old gentleman admitted with acute hypoxic respiratory failure secondary to COVID-19 ARDS, now requiring ventilatory support. Plan: Neuro: No acute issues. Cardiac: No acute issues. Pulmonary: Acute hypoxic respiratory failure secondary to COVID-19 ARDS requiring ventilatory support. Slowly progressive, now on maximum ventilatory support. Continue systemic glucocorticoids. Renal: No acute issues. Endo: No acute issues. GI: No acute issues. ID: No acute issues Heme/Onc: left upper extremity swollen, possible DVT, Doppler ultrasound pending. Psych: No acute issues. Miscellaneous: No acute issues. Overall very poor prognosis. Discussed with his daughter/healthcare proxy. Family considering code status change. Prophylaxis: Lovenox, famotidine Diet: tube feeds Critical care time spent: 90 minutes (2) Acute respiratory distress syndrome (ARDS) due to COVID-19 virus: Status: Acute Time Spent With Patient Time: Total time spent is greater than 50% in coordination of care (as documented) at patient's floor/unit and/or counseling patient: Total time spent with greater than 50% in coordination of care (as documented) at patient's floor/unit and/or counseling patient:: 0 Critical Care Time Critical Care Time (minutes): 90
--- NOTE | 2020-06-16 14:51 | PC.NURSE ---
SE AFEBRILE SR VENTED NOT CHANGES MADE TO SETTINGS O2 DECREASED TO 90 PROPOFOL REDUCED TO 30MCG/KG/MIN RECTAL TUBE REMOVED BATHED SHAVED, TUBE TAMER CHANGED TLC DRESSING CHANGED PARALYTICS CONTINUE LEFT ARM MARKEDLY SWOLLEN WITH COLD HAND MD AWARE U/S DONE DISCUSSED LABS ON ROUNDS TUBE FEEDS ON HOLD
[2020-06-16] MEDS: propofoL 1,000 MG/100 ML VIAL 13.86 MG IVCONT ×2 (15:25→22:01)
[2020-06-16 19:56] LABS: Glucose, Whole Blood 159 mg/dL (60-115)
[2020-06-16] MEDS: Albuterol/Iprat 2.5/0.5MG 3 ML AMPUL.NEB INHALE (23:32)
[2020-06-17] VITALS (29 sets, daily range): BP systolic 98–151; BP diastolic 45–66; PULSE 66–93; RESP 20–28; TEMP 36.5–37.6; O2SAT 90–98
--- NOTE | 2020-06-17 | XR_ITS ---
EXAMINATION: XR CHEST CLINICAL INFORMATION: ETT position COMPARISON: Chest 06/16/2020 10:09 AM TECHNIQUE: Frontal view portable AP upright of the chest was obtained. FINDINGS: Endotracheal tube: Tip 4.4 cm above harish. Enteric tube below diaphragm. Central venous catheter remains in SVC. Persistent bilateral patchy lung opacities unchanged. There is increased lucency along the left heart border not seen previously. Arterial calcification. Evaluation of the cardiac silhouette size is limited because of opacification of the lungs. XR/XR chest 1V IMPRESSION: Endotracheal tube 4.4 cm above harish. Persistent bilateral lung opacities unchanged. No lucency surrounding the left heart border of uncertain significance. This may be projectional related to the opacities in the surrounding unopacified lung. However pneumomediastinum is a consideration. Attention to this finding on follow-up radiographs.
[2020-06-17] MEDS: 0.9 % Sodium Chloride Flush 3 ML SYRINGE IVFLUSH ×3 (00:19→19:27)
[2020-06-17] MEDS: propofoL 1,000 MG/100 ML VIAL 13.86 MG IVCONT (04:26)
[2020-06-17 06:07] LABS: Basophils Percent Auto 0.1 % (0-2); Eosinophils Percent Auto 0.1 % (0-4); Hematocrit 27.1 % (42-52); Hemoglobin 7.9 g/dl (14.0-18.0); Imm Gran Abs Auto 0.41 X10*3/uL (0.00-0.03); Imm Gran Pct Auto 2.6 % (0.0-0.4); Lymphocytes Absolute Auto 0.5 X10*3/uL (1.2-4.9); Lymphocytes Percent Auto 2.9 % (20-40); MANUAL DIFF FLAG SCAN; Mean Corpuscular HGB Conc 29.2 g/dl (31.0-36.0); Mean Corpuscular Hemoglobin 29.5 pg (27.0-33.0); Mean Corpuscular Volume 101.1 fL (80-98); Mean Platelet Volume 12.1 fL (9.4-12.4); Monocytes Absolute Auto 0.5 X10*3/uL (0.1-1.2); Monocytes Percent Auto 2.8 % (2-11); Neutrophils Absolute Auto 14.7 X10*3/uL (2.0-8.3); Neutrophils Percent Auto 91.5 % (45-73); Platelet Count 247 X10*3/uL (160-400); Red Blood Count 2.68 X10*6/uL (4.60-5.80); Red Cell Distribution Width 14.6 % (11.0-16.0); SCAN SMEAR FLAG 1; White Blood Count 16.1 X10*3/uL (4.8-10.8)
[2020-06-17 06:29] LABS: Glucose, Whole Blood 119 mg/dL (60-115)
[2020-06-17 06:31] LABS: SLIDE REVIEW VERIFIED
[2020-06-17 06:43] LABS: pH VBG 7.41 (7.32-7.43)
[2020-06-17 06:44] LABS: Base Excess VBG 19.4 mmol/L; HCO3 VBG 45 mmol/L; Oxygen Saturation VBG 85.4 %; PCO2 VBG 73 mmhg; PO2 VBG 50 mmhg
[2020-06-17 07:02] LABS: Alanine Aminotransferase 30 U/L (0-40); Albumin Level 2.8 g/dL (3.5-5.0); Alkaline Phosphatase 88 U/L (39-117); Anion Gap 9 (12-20); Aspartate Amino Transferase 16 U/L (5-37); Bilirubin Total 0.5 mg/dL (0.0-1.0); Blood Urea Nitrogen 41 mg/dL (9-16); Carbon Dioxide 41 mmol/L (22-29); Chloride 104 mmol/L (96-108); Creatinine Clr Calc Pharmacy 104.3; Estimated Glomerular Filt Rate > 60; Glucose Random 123 mg/dL (60-115); Magnesium 2.5 mg/dL (1.6-2.6); Phosphorus 2.6 mg/dL (2.7-4.5); Potassium 4.9 mmol/l (3.3-5.1); Sodium 149 mmol/L (135-145)
[2020-06-17 07:04] LABS: Glucose, Whole Blood 134 mg/dL (60-115)
[2020-06-17] MEDS: Albuterol/Iprat 2.5/0.5MG 3 ML AMPUL.NEB INHALE (08:05)
[2020-06-17] MEDS: methylPREDNISolone Sod Succ/PF 125 MG/2 ML VIAL 60 MG IVPUSH (08:16)
[2020-06-17] MEDS: Chlorhexidine Gluc Oral Rinse 15 ML MOUTHWASH BUCCAL ×3 (08:16→20:21)
[2020-06-17] MEDS: Enoxaparin Sodium 40 MG/0.4 ML SYRINGE SUBCUT (08:16)
--- NOTE | 2020-06-17 11:38 | PM.CCPN ---
Subjective Subjective Date of Service: 06/17/20 Interval History: 74-year-old gentleman with underlying history of COPD and hypertension admitted on 06/05/2020 with hypoxic respiratory failure secondary to COVID-19. Hospital course complicated by progressive hypoxemia requiring intubation and ventilatory support starting on 06/07/2020. no events overnight. Slightly improved oxygenation. Taken of paralytic. Physical Exam Vital Signs: Vital Signs: Last Vital Signs Temp 99.1 F 06/17/20 11:00 Pulse 87 06/17/20 11:00 Resp 24 H 06/17/20 11:00 BP 129/55 L 06/17/20 11:00 Pulse Ox 97 06/17/20 11:00 Body Mass Index 31.8 Const: General: no acute distress and other ( Sedated on the vent) Eyes: Sclerae: sclerae normal Neck: Neck: Yes no lymphadenopathy, Yes trachea midline and Yes supple Resp: Auscultation: crackles bilateral and diffuse Cardio: Rate: regular rate Rhythm: regular rhythm Heart sounds: no gallops, no murmurs and no rubs GI: Palpation (GI): Soft to palpation and Other GI palpation findings present ( Nontender) Auscultation: normal bowel sounds Extrem: General: No clubbing, No cyanosis and Yes edema ( 1+ bilateral) Objective Data Labs CBC & Chem 7: 06/17/20 05:45 06/17/20 05:45 Labs: Laboratory Results - last 24 hr 06/16/20 06/16/20 06/16/20 08:04 11:31 19:34 WBC RBC Hgb Hct MCV MCH MCHC RDW Plt Count MPV Immature Gran % (Auto) Neut % (Auto) Lymph % (Auto) [place] % (Auto) Eos % (Auto) Baso % (Auto) Lymph # (Auto) [place] # (Auto) Eos # (Auto) Baso # (Auto) Abs Immat Gran (auto) Absolute Neuts (auto) Absolute Nucleated RBC Nucleated RBC % (auto) Smear Tech's Comments VBG pH VBG pCO2 VBG Oxygen Liters/Min VBG pO2 VBG HCO3 VBG O2 Saturation VBG Base Excess Sodium Potassium Chloride Carbon Dioxide Anion Gap BUN Creatinine Estim Creat Clear Calc Estimated GFR POC Glucose 124 H 124 H 159 H Random Glucose Calcium Phosphorus Magnesium Total Bilirubin AST ALT Alkaline Phosphatase Total Protein Albumin 06/16/20 06/17/20 06/17/20 23:20 05:45 05:45 WBC 16.1 H RBC 2.68 L Hgb 7.9 L Hct 27.1 L MCV 101.1 H MCH 29.5 MCHC 29.2 L RDW 14.6 Plt Count 247 MPV 12.1 Immature Gran % (Auto) 2.6 H Neut % (Auto) 91.5 H Lymph % (Auto) 2.9 L [place] % (Auto) 2.8 Eos % (Auto) 0.1 Baso % (Auto) 0.1 Lymph # (Auto) 0.5 L [place] # (Auto) 0.5 Eos # (Auto) 0.0 Baso # (Auto) 0.0 Abs Immat Gran (auto) 0.41 H Absolute Neuts (auto) 14.7 H Absolute Nucleated RBC 0.000 Nucleated RBC % (auto) 0.0 Smear Tech's Comments VERIFIED VBG pH VBG pCO2 VBG Oxygen Liters/Min VBG pO2 VBG HCO3 VBG O2 Saturation VBG Base Excess Sodium 149 H Potassium 4.9 Chloride 104 Carbon Dioxide 41 H* Anion Gap 9 L BUN 41 H Creatinine 0.62 Estim Creat Clear Calc 104.3 Estimated GFR > 60 POC Glucose 134 H Random Glucose 123 H D Calcium 8.0 L Phosphorus 2.6 L Magnesium 2.5 Total Bilirubin 0.5 AST 16 ALT 30 Alkaline Phosphatase 88 Total Protein 5.0 L Albumin 2.8 L 06/17/20 06/17/20 05:45 05:51 WBC RBC Hgb Hct MCV MCH MCHC RDW Plt Count MPV Immature Gran % (Auto) Neut % (Auto) Lymph % (Auto) [place] % (Auto) Eos % (Auto) Baso % (Auto) Lymph # (Auto) [place] # (Auto) Eos # (Auto) Baso # (Auto) Abs Immat Gran (auto) Absolute Neuts (auto) Absolute Nucleated RBC Nucleated RBC % (auto) Smear Tech's Comments VBG pH 7.41 VBG pCO2 73 VBG Oxygen Liters/Min Not Reportable VBG pO2 50 VBG HCO3 45 VBG O2 Saturation 85.4 VBG Base Excess 19.4 Sodium Potassium Chloride Carbon Dioxide Anion Gap BUN Creatinine Estim Creat Clear Calc Estimated GFR POC Glucose 119 H Random Glucose Calcium Phosphorus Magnesium Total Bilirubin AST ALT Alkaline Phosphatase Total Protein Albumin Microbiology Microbiology Results: Microbiology 06/10/20 05:47 Blood - Venous Blood Culture - Final No growth after 5 days. 06/10/20 05:47 Blood - Venous Blood Culture - Final No growth after 5 days. 06/09/20 15:39 Sputum - Suctioned Gram Stain - Final 06/09/20 15:39 Sputum - Suctioned Sputum Culture - Final 06/04/20 17:18 Blood - Venous Blood Culture - Final No growth after 5 days. 06/04/20 17:18 Blood - Venous Blood Culture - Final No growth after 5 days. 06/07/20 08:25 Sputum - Suctioned Gram Stain - Final 06/07/20 08:25 Sputum - Suctioned Sputum Culture - Final Progress Note: A&P Assessment and plan (1) Acute respiratory distress syndrome (ARDS) due to COVID-19 virus: Status: Acute Assessment and Plan: Assessment: 74-year-old gentleman admitted with acute hypoxic respiratory failure secondary to COVID-19 ARDS, now requiring ventilatory support. Plan: Neuro: No acute issues. Cardiac: No acute issues. Pulmonary: Acute hypoxic respiratory failure secondary to COVID-19 ARDS requiring ventilatory support. Mild improvement overnight, taken off paralytic.Continue systemic glucocorticoids. Renal: No acute issues. Endo: No acute issues. GI: No acute issues. ID: No acute issues Heme/Onc: left upper extremity swollen, possible DVT, Doppler ultrasound pending. Psych: No acute issues. Miscellaneous: No acute issues. Overall very poor prognosis. . Prophylaxis: Lovenox, famotidine Diet: tube feeds Critical care time spent: 60 minutes (2) Respiratory failure, unspecified with hypoxia: Status: Acute Time Spent With Patient Time: Total time spent is greater than 50% in coordination of care (as documented) at patient's floor/unit and/or counseling patient: Total time spent with greater than 50% in coordination of care (as documented) at patient's floor/unit and/or counseling patient:: 0 Critical Care Time Critical Care Time (minutes): 60
[2020-06-17 12:26] LABS: Glucose, Whole Blood 199 mg/dL (60-115)
[2020-06-17] MEDS: Insulin Lispro 100 UNIT/ML 3 ML VIAL SUBCUT ×2 (13:20→18:30)
--- NOTE | 2020-06-17 15:43 | MHC.CM.PN ---
Pt remains in ICU on ventilatory support for COVID 19. FiO2 80%: CM to follow for d/c planning:
[2020-06-17 18:29] LABS: Glucose, Whole Blood 236 mg/dL (60-115)
--- NOTE | 2020-06-17 19:37 | PC.NURSE ---
Assumed care at 05:00. Patient sedate on propofol and fentanyl, but became restless with nursing care and would stack breathes and hernandez vent at times, and sedation was titrated up with fentanyl up to 80, and propofol was up as high as 36, and now down to 26. Patient Effexor XR held per MD, and patient started on Lamictal. Patient continues to be intubated with #7.5 ETT 20 cm bari, AC settings 24; 400; 18; 80%, minute volumes of 8-9. Oral secretions white and thick initially, now thin and clear; inline secretions clear. LS dim at bases. Sinus rhythm on monitor with occasional PVC and PACs. There was one episode of restlessness that seemed associated with vent dysynchrony, and patient's hr had climbed to 120's; sedation was titrated up with good effect. Patient started on TF Promote, goal is 35, currently at 30, residual volumes of 25-50. no BM. full bath. bryant outputs were around 70 cc/hour, some sediment at times. Family arranged to have Amada be the primary contact per case management today. Skin intact.
--- NOTE | 2020-06-17 19:46 | PC.NURSE ---
Assumed care at 05:00. Patient was on Nimbex continuously at rate of 2: discussed train of fours result of four with MD, and new order to discontinue Nimbex; and Propofol was at 30, titrated down to 22. Patient pupils reactive and sluggish; + cough and weak gag; after Nimbex was turned off, patient seen to move bilateral upper extremities and head and neck; restraints reordered for safety. Patient appears to be having good vent synchrony with only slight overbreathing at times with RR at 25. Patient has #7.5 ETT, 22 cm bari, and this was checked by CXR and ok per MD today; AC 24; 400; 18; 80%; minute volumes 9-11. lung sounds clear uppers, dim bases, occasional inspiratory rhonchi left lung [place]. oral secretions thin and clear, inline secretions thin and norman with small reddish chunks. Sinus rhythm on the monitor with very little ectopy only through the morning. Patient restarted on Promote per MD in the evening as of 17:00, following prior diet order. Full bath in the afternoon; no bm. bryant outputs 150-200 / hour dark to rikki. Skin with stage 2 to coccyx. Edema throughout +2 and left lower arm is +3 pitting; skin noted to be cooler to left hand while other extremities are warm to touch; discussed with MD, and since Ultrasound found no DVT, intervention is warm compresses, veterinary parasitologist aware and following up.
[2020-06-17] MEDS: propofoL 1,000 MG/100 ML VIAL 12.94 MG IVCONT (20:36)
[2020-06-18] VITALS (36 sets, daily range): BP systolic 106–188; BP diastolic 40–69; PULSE 81–96; RESP 23–29; TEMP 36.6–37.4; O2SAT 89–96
--- NOTE | 2020-06-18 | XR_ITS ---
EXAMINATION: XR SOFT TISSUE NECK CLINICAL INDICATION: Neck edema. COMPARISON: Chest radiograph from 06/17/2020. TECHNIQUE: A lateral view of the neck is provided. FINDINGS: The endotracheal tube and enteric tube are identified. The tips are not demonstrable on this lateral view. There is extensive aberrant gas throughout the neck in subcutaneous and retropharyngeal locations. The cervical vertebra are in normal alignment. There is disc height loss at C5/C6 and C6/C7. XR/XR soft tissue neck IMPRESSION: Extensive subcutaneous and retropharyngeal gas. Endotracheal tube and enteric tube identified. Cervical vertebra are in normal alignment with lower cervical spine disc height loss.
[2020-06-18] MEDS: 0.9 % Sodium Chloride Flush 3 ML SYRINGE IVFLUSH ×3 (00:52→16:08)
[2020-06-18] MEDS: Insulin Lispro 100 UNIT/ML 3 ML VIAL SUBCUT ×4 (00:58→19:45)
--- NOTE | 2020-06-18 03:49 | PC.RT ---
Pt developed worsening pneumomediastinum, confirmed by imaging. PA at bedside, orders to wean PEEP to 12cm as pt beatris, maintain sats >92%.
[2020-06-18 04:59] LABS: Glucose, Whole Blood 242 mg/dL (60-115)
[2020-06-18] MEDS: propofoL 1,000 MG/100 ML VIAL 12.94 MG IVCONT ×2 (05:30→13:43)
[2020-06-18 06:05] LABS: Basophils Percent Auto 0.1 % (0-2); Imm Gran Abs Auto 0.27 X10*3/uL (0.00-0.03); Imm Gran Pct Auto 1.5 % (0.0-0.4); Lymphocytes Absolute Auto 0.4 X10*3/uL (1.2-4.9); Lymphocytes Percent Auto 2.2 % (20-40); MANUAL DIFF FLAG SCAN; Mean Corpuscular HGB Conc 29.6 g/dl (31.0-36.0); Mean Corpuscular Volume 101.5 fL (80-98); Mean Platelet Volume 12.2 fL (9.4-12.4); Monocytes Absolute Auto 0.6 X10*3/uL (0.1-1.2); Monocytes Percent Auto 3.1 % (2-11); Neutrophils Absolute Auto 16.8 X10*3/uL (2.0-8.3); Neutrophils Percent Auto 93.1 % (45-73); Platelet Count 213 X10*3/uL (160-400); Red Blood Count 2.03 X10*6/uL (4.60-5.80); Red Cell Distribution Width 14.6 % (11.0-16.0); SCAN SMEAR FLAG 1; White Blood Count 18.1 X10*3/uL (4.8-10.8)
[2020-06-18 06:09] LABS: Glucose, Whole Blood 214 mg/dL (60-115)
[2020-06-18 06:33] LABS: SLIDE REVIEW VERIFIED
[2020-06-18 06:36] LABS: Base Excess VBG 17.5 mmol/L; HCO3 VBG 43 mmol/L; Oxygen Saturation VBG 85.7 %; PCO2 VBG 72 mmhg; PO2 VBG 54 mmhg
[2020-06-18 06:50] LABS: Alanine Aminotransferase 22 U/L (0-40); Albumin Level 2.6 g/dL (3.5-5.0); Alkaline Phosphatase 70 U/L (39-117); Anion Gap 7 (12-20); Aspartate Amino Transferase 12 U/L (5-37); Bilirubin Total 0.3 mg/dL (0.0-1.0); Blood Urea Nitrogen 55 mg/dL (9-16); Calcium 8.3 mg/dL (8.4-10.2); Carbon Dioxide 44 mmol/L (22-29); Chloride 107 mmol/L (96-108); Creatinine Clr Calc Pharmacy 104.3; Estimated Glomerular Filt Rate > 60; Glucose Random 244 mg/dL (60-115); Magnesium 2.5 mg/dL (1.6-2.6); Potassium 4.8 mmol/l (3.3-5.1); Sodium 153 mmol/L (135-145); Total Protein 4.7 g/dL (6.5-8.0)
--- NOTE | 2020-06-18 07:20 | PC.NURSE ---
AT APPROXIMATELY 0030 PATIENT MOVING HEAD AND HANDS, EYES OPEN, ARTIFACT ON THE MONITOR, INCREASED TO 25MCG/KG/HR. PATIENT NOTED TO HAVE SWELLING TO NECK WHICH WAS NOT PRESENT EARLIER. NOTIFIED PA AND A STAT XRAY OF THE NECK WAS ORDERED. SOFT TISSUE SWELLING THE NECK WAS VISUALIZED AND AN ULTRASOUND OF THE NECK WAS ORDERED. TECH WAS UNABLE TO VISUALIZE ANYTHING DUE TO AIR BUILD UP. PA THEN CALLED AND MD AND DISCUSSED A PNEUMOMEDIASTINUM. PER ORDER FROM PA RT DECREASED PEEP DOWN TO 12, ALSO ATTEMPTING TO DECREASE FIO2 FROM 80 TO 70% BUT PATIENT DID NOT TOLERATE WELL AND SATS DROPPED FROM 96% DOWN TO 89% SO PATIENT WAS BROUGHT TO 80% AND TOLERATED THAT WELL. WHILE REPOSITIONING PATIENT AT APPROXIMATELY 0530 PATIENT SWELLING HAD MINIMALLY DECREASED BUT CREPITUS WAS NOTED AND RN INFORMED PA. THIS AM CRITICAL h7h CAME BACK 6.1.0, PA ORDERED FOR A TYPE AND SCREEN, D/C LOVENOX, GUAC STOOL, AND 2 UNITS OF RBC. MD TO CALL FAMILY AND UPDATE PATIENTS CURRENT STATUS AND MAKE CODE STATUS CHANGES NECESSARY. AT THIS TIME VSS, PATIENT IS SEDATED ON PROPOFOL 25MCK/KG/HR OR 11.55ML/HR, + COUGH AND GAG PUPILS EQUAL AND SLUGGISH, SR 80-90'S, LUNG SOUNDS ARE COARSE/ CRACKLES AND DIMINISHED, BOWEL SOUNDS ACTIVE, SEMIFIRM, OBESE ABDOMEN. PATIENT REPOSITIONED, ONCOMING RN UPDATED AND AWARE OF ALL NEW ORDERS AT THIS TIME.
[2020-06-18 08:54] LABS: Hematocrit 20.6 % (42-52)
[2020-06-18 08:59] LABS: Hemoglobin 6.1 g/dl (14.0-18.0)
[2020-06-18] MEDS: Albumin Human 25 % 100 ML IV ×3 (09:25→19:43)
[2020-06-18] MEDS: Chlorhexidine Gluc Oral Rinse 15 ML MOUTHWASH BUCCAL ×3 (09:27→23:40)
[2020-06-18] MEDS: methylPREDNISolone Sod Succ/PF 125 MG/2 ML VIAL 60 MG IVPUSH (09:27)
[2020-06-18] MEDS: Insulin Glargine,Hum.rec.anlog 100 UNIT/ML 10 ML VIAL 30 UNIT SUBCUT (09:28)
--- NOTE | 2020-06-18 10:21 | MHC.CLN ---
F/U TF RE-STARTED AND CURRENTLY RUNNING AT 30CC/HR PROVIDING 720KCALS, 45G PROTEIN MAX GOAL RATE FOR PROMOTE IS 60CC/HR WITH 120CC FREE WATER Q SHIFT WILL PROVIDE 1440KCALS (1782KCALS WITH SEDATION; 26KCALS/KG), 90G PROTEIN (1.3G/KG), 1568CC TOTAL WATER FROM FORMULA AND FLUSHES NEW STAGE 2 SACRUM NOTED-WILL START JAROD VIA TF FOR WOUND HEALING MONITOR RESIDUALS, TOLERANCE AND LYTES FOLLOWING
[2020-06-18 11:59] LABS: Glucose, Whole Blood 248 mg/dL (60-115)
[2020-06-18 11:59] LABS: Glucose, Whole Blood 223 mg/dL (60-115)
--- NOTE | 2020-06-18 12:55 | P.CDIC_ITS ---
CDI Concurrent Query Service Date: 06/18/20 Documentation Clarification: Please clarify if you are treating a proba ble/suspected/likely or confirmed: Viral Sepsis due to Covid-19/Pneumonia with acute hypoxic respiratory failure Severe viral Sepsis due to Covid-19/Pneumonia with acute hypoxic respiratory failure Please specify if known PLEASE DO NOT DELETE/MODIFY EXISTING CONTENT Additional information is needed in order to code to the highest accuracy and appropriate Severity of Illness (SOI). Please clarify the information noted below in your progress notes and discharge summary. Risk Factors/Clinical Indicators/Treatments H&P: Sepsis, most likely secondary to viral sepsis in setting of Covid-19/ pneumonia, tachycardic, leukocytosis, febrile, elevated LA 2nd to hypoxia. PN: 06/05 - Sepsis due to Covid-19 pneumonia with acute hypoxic respiratory failure. O2 supplement, Azithromycin, Decradon, IV fluids. PN: 06/07 - Sepsis Covid-19 pneumonia with acute hypoxic respiratory failure. CDS: Vanessa Maddox CCS, CDIS Contact Number: [phone]. [phone] Please Review the information above and exercise your independent professional judgment in responding to the query. If you concur, pleas document in the PROGRESS NOTES and DISCHARGE SUMMARY. If you do not agree with the query, please document in the query above. THIS QUERY IS PART OF THE PERMANENT MEDICAL RECORD
--- NOTE | 2020-06-18 14:55 | PM.CCPN ---
Subjective Subjective Date of Service: 06/18/20 Interval History: 74-year-old gentleman with underlying history of COPD and hypertension admitted on 06/05/2020 with hypoxic respiratory failure secondary to COVID-19. Hospital course complicated by progressive hypoxemia requiring intubation and ventilatory support starting on 06/07/2020. Overnight with development of subcutaneous emphysema in anterior neck and acute blood loss anemia. Physical Exam Vital Signs: Vital Signs: Last Vital Signs Temp 98.1 F 06/18/20 14:00 Pulse 93 06/18/20 14:00 Resp 23 H 06/18/20 14:00 BP 130/49 L 06/18/20 14:00 Pulse Ox 90 L 06/18/20 14:00 Body Mass Index 31.8 Const: General: no acute distress and other ( Anterior chest and neck subcutaneous emphysema) Eyes: Sclerae: sclerae normal Neck: Neck: Yes no lymphadenopathy, Yes trachea midline and Yes supple Resp: Auscultation: crackles bilateral and diffuse Cardio: Rate: regular rate Rhythm: regular rhythm Heart sounds: no gallops, no murmurs and no rubs GI: Palpation (GI): Soft to palpation and Other GI palpation findings present ( Nontender) Auscultation: normal bowel sounds Extrem: General: No clubbing, No cyanosis and Yes edema ( 1+ bilateral) Objective Data Labs CBC & Chem 7: 06/18/20 05:40 06/18/20 05:40 Labs: Laboratory Results - last 24 hr 06/17/20 06/18/20 06/18/20 17:46 00:55 05:40 WBC 18.1 H RBC 2.03 L D Hgb 6.1 L* D Hct 20.6 L* D MCV 101.5 H MCH 30.0 MCHC 29.6 L RDW 14.6 Plt Count 213 MPV 12.2 Immature Gran % (Auto) 1.5 H Neut % (Auto) 93.1 H Lymph % (Auto) 2.2 L [place] % (Auto) 3.1 Eos % (Auto) 0.0 Baso % (Auto) 0.1 Lymph # (Auto) 0.4 L [place] # (Auto) 0.6 Eos # (Auto) 0.0 Baso # (Auto) 0.0 Abs Immat Gran (auto) 0.27 H Absolute Neuts (auto) 16.8 H Absolute Nucleated RBC 0.000 Nucleated RBC % (auto) 0.0 Smear Tech's Comments VERIFIED VBG pH VBG pCO2 VBG Oxygen Liters/Min VBG pO2 VBG HCO3 VBG O2 Saturation VBG Base Excess Sodium Potassium Chloride Carbon Dioxide Anion Gap BUN Creatinine Estim Creat Clear Calc Estimated GFR POC Glucose 236 H 242 H Random Glucose Calcium Phosphorus Magnesium Total Bilirubin AST ALT Alkaline Phosphatase Total Protein Albumin Blood Type Antibody Screen Crossmatch 06/18/20 06/18/20 06/18/20 05:40 05:40 05:42 WBC RBC Hgb Hct MCV MCH MCHC RDW Plt Count MPV Immature Gran % (Auto) Neut % (Auto) Lymph % (Auto) [place] % (Auto) Eos % (Auto) Baso % (Auto) Lymph # (Auto) [place] # (Auto) Eos # (Auto) Baso # (Auto) Abs Immat Gran (auto) Absolute Neuts (auto) Absolute Nucleated RBC Nucleated RBC % (auto) Smear Tech's Comments VBG pH 7.40 VBG pCO2 72 VBG Oxygen Liters/Min Not Reportable VBG pO2 54 VBG HCO3 43 VBG O2 Saturation 85.7 VBG Base Excess 17.5 Sodium 153 H Potassium 4.8 Chloride 107 Carbon Dioxide 44 H* Anion Gap 7 L BUN 55 H Creatinine 0.62 Estim Creat Clear Calc 104.3 Estimated GFR > 60 POC Glucose 214 H Random Glucose 244 H D Calcium 8.3 L Phosphorus 3.0 Magnesium 2.5 Total Bilirubin 0.3 AST 12 ALT 22 Alkaline Phosphatase 70 D Total Protein 4.7 L Albumin 2.6 L Blood Type Antibody Screen Crossmatch 06/18/20 06/18/20 06/18/20 07:27 09:44 11:19 WBC RBC Hgb Hct MCV MCH MCHC RDW Plt Count MPV Immature Gran % (Auto) Neut % (Auto) Lymph % (Auto) [place] % (Auto) Eos % (Auto) Baso % (Auto) Lymph # (Auto) [place] # (Auto) Eos # (Auto) Baso # (Auto) Abs Immat Gran (auto) Absolute Neuts (auto) Absolute Nucleated RBC Nucleated RBC % (auto) Smear Tech's Comments VBG pH VBG pCO2 VBG Oxygen Liters/Min VBG pO2 VBG HCO3 VBG O2 Saturation VBG Base Excess Sodium Potassium Chloride Carbon Dioxide Anion Gap BUN Creatinine Estim Creat Clear Calc Estimated GFR POC Glucose 223 H 248 H Random Glucose Calcium Phosphorus Magnesium Total Bilirubin AST ALT Alkaline Phosphatase Total Protein Albumin Blood Type A Positive Antibody Screen NEGATIVE Crossmatch See Detail Microbiology Microbiology Results: Microbiology 06/10/20 05:47 Blood - Venous Blood Culture - Final No growth after 5 days. 06/10/20 05:47 Blood - Venous Blood Culture - Final No growth after 5 days. 06/09/20 15:39 Sputum - Suctioned Gram Stain - Final 06/09/20 15:39 Sputum - Suctioned Sputum Culture - Final 06/04/20 17:18 Blood - Venous Blood Culture - Final No growth after 5 days. 06/04/20 17:18 Blood - Venous Blood Culture - Final No growth after 5 days. 06/07/20 08:25 Sputum - Suctioned Gram Stain - Final 06/07/20 08:25 Sputum - Suctioned Sputum Culture - Final Progress Note: A&P Assessment and plan (1) Acute respiratory distress syndrome (ARDS) due to COVID-19 virus: Status: Acute Assessment and Plan: Assessment: 74-year-old gentleman admitted with acute hypoxic respiratory failure secondary to COVID-19 ARDS, now requiring ventilatory support. Plan: Neuro: No acute issues. Cardiac: No acute issues. Pulmonary: Acute hypoxic respiratory failure secondary to COVID-19 ARDS requiring ventilatory support. overnight with development of subcutaneous emphysema, able to decrease down PEEP to control emphysema with desaturations. .Continue systemic glucocorticoids. Renal: No acute issues. Endo: No acute issues. GI: No acute issues. ID: No acute issues Heme/Onc: Subacute blood loss anemia, likely secondary to erosive gastritis. Lovenox held. Psych: No acute issues. Miscellaneous: No acute issues. Overall very poor prognosis. . Prophylaxis: Intermittent pneumatic compression, famotidine Diet: tube feeds Critical care time spent: 90 minutes (2) Respiratory failure, unspecified with hypoxia: Status: Acute Time Spent With Patient Time: Total time spent is greater than 50% in coordination of care (as documented) at patient's floor/unit and/or counseling patient: Total time spent with greater than 50% in coordination of care (as documented) at patient's floor/unit and/or counseling patient:: 0 Critical Care Time Critical Care Time (minutes): 90
[2020-06-18 15:48] LABS: Hematocrit 23.7 % (42-52); Hemoglobin 7.4 g/dl (14.0-18.0); Mean Corpuscular HGB Conc 31.2 g/dl (31.0-36.0); Mean Corpuscular Hemoglobin 29.8 pg (27.0-33.0); Mean Corpuscular Volume 95.6 fL (80-98); Mean Platelet Volume 11.9 fL (9.4-12.4); Platelet Count 162 X10*3/uL (160-400); Red Blood Count 2.48 X10*6/uL (4.60-5.80); Red Cell Distribution Width 16.4 % (11.0-16.0)
--- NOTE | 2020-06-18 17:31 | PM.PNNEP ---
Subjective Subjective Interval history: Seen and examined. Events noted SNa incr 149 to 153 this am 74-year-old gentleman with underlying history of COPD and hypertension admitted on 06/05/2020 with hypoxic respiratory failure secondary to COVID-19. Hospital course complicated by progressive hypoxemia requiring intubation and ventilatory support starting on 06/07/2020. Overnight with development of subcutaneous emphysema in anterior neck and acute blood loss anemia. Physical Exam Vital Signs: Vital Signs: Last Vital Signs Temp 98.2 F 06/18/20 16:00 Pulse 85 06/18/20 16:00 Resp 24 H 06/18/20 16:00 BP 134/54 L 06/18/20 16:00 Pulse Ox 91 L 06/18/20 16:00 Body Mass Index 31.8 General: Const: Nutritional Appearance: average body habitus Resp: Other: vented Effort & Inspection: audible wheezes and respiratory distress ( Decreased breath sounds diffusely) Auscultation: rhonchi and wheezes Cardio: Rate: regular rate and tachycardic Rhythm: regular rhythm Assessment & Plan Assessment and plan (1) COVID-19: Status: Acute (2) COPD exacerbation: Status: Acute Assessment and Plan: 1. COVID Severe Resp Failure cont on Vent support sicne 06/07 2. Incr Bun/Cr: d/t steroids and ques IV vol depletion 3. TBFOL: 3rd spacing of fluid multifact w capillary leak, hypoalb 4. HyperNa: ongoing osmoitc diuresis from high BS causing incr FWater loss along with incr IWL 5. Incr HCO3: based on VABG has metabolic alkalosis >resp acidoisis....mutlifact:IV vol deplection with contraction alk and CO2 retention with renal compenastory HCO3 generation/reclaimining by kidney 4. HyperK: controlled REC: repakce FWater down NGT..incr to 250 q 4-6 hrs; cont attempt to mobilze 3rd space fluid w IV alb and consider diamox if resp status can tolerate it Time Spent With Patient Time: Total time spent is greater than 50% in coordination of care (as documented) at patient's floor/unit and/or counseling patient: Procedures Abscess I/D Date of Service: 06/18/20
[2020-06-18] MEDS: propofoL 1,000 MG/100 ML VIAL 8.32 MG IVCONT (19:44)
--- NOTE | 2020-06-18 20:21 | PC.NURSE ---
ASSUMED CARE AT 07:00. PATIENT WAS SEDATE ON PROPOFOL 25, THIS HAS BEEN TITRATED DOWN TO 18 OVER COURSE OF SHIFT. PUPILS ARE REACTIVE, PATIENT HAS COUGH AND WEAK GAG. PATIENT MOVES HEAD DURING THIS SHIFT AND PARTICIPATES IN ORAL CARE. TOLERATES INLINE SUCTIONING AND REPOSITIONING WELL. INLINE SECRETIONS LARGE AMOUNT OF HUGHES WITH BLOOD TINGED. REMAINS INTUBATED WITH #7.5 ETT 22 CC PADMINI, AC/VC SETTINGS AC IS 24; VC IS 400; PEEP IS 12; FIO2 IS 80%; SPO2 HAS BEEN 87-93%, MOSTLY STAYING ABOUT 89-91%. INLINE SUCTIONING WITH GOOD EFFECT. PATIENT HAS CREPITUS AT THE ANTERIOR DISTAL PORTION OF HIS NECK, PALPABLE AND AUDIBLE; NECK CONTINUES BEING SWOLLEN BUT HAS NOT APPARENTLY WORSENED. PATIENT RECEIVED TWO UNITS OF WHOLE BLOOD TODAY, HGB WAS 6.1 THIS MORNING, UP TO 7.4 AFTERWARDS. PATIENT ALSO RECEIVED TWO UNITS OF ALBUMIN. LUNG SOUNDS FROM BEFORE THESE INFUSIONS WERE FINE CRACKLES/CREPITUS IN UPPERS, SCATTERED INSPIRATORY WHEEZING, AND INSPIRTORY RHONCHI THROUGH THE MIDDLE AND UPPER LUNG HERNANDEZ.
[2020-06-18 20:24] LABS: Glucose, Whole Blood 289 mg/dL (60-115)
--- NOTE | 2020-06-18 20:24 | PC.NURSE ---
Blood checked and witnessed with Cm Adam
--- NOTE | 2020-06-18 20:47 | PC.NURSE ---
ASSUMED CARE AT 07:00. PATIENT WAS SEDATE ON PROPOFOL 25, THIS HAS BEEN TITRATED DOWN TO 18 OVER COURSE OF SHIFT. PUPILS ARE REACTIVE, PATIENT HAS COUGH AND WEAK GAG. PATIENT MOVES HEAD DURING THIS SHIFT AND PARTICIPATES IN ORAL CARE. TOLERATES INLINE SUCTIONING AND REPOSITIONING WELL. INLINE SECRETIONS LARGE AMOUNT OF HUGHES WITH BLOOD TINGED. REMAINS INTUBATED WITH #7.5 ETT 22 CC PADMINI, AC/VC SETTINGS AC IS 24; VC IS 400; PEEP IS 12; FIO2 IS 80%; SPO2 HAS BEEN 87-93%, MOSTLY STAYING ABOUT 89-91%. INLINE SUCTIONING WITH GOOD EFFECT. PATIENT HAS CREPITUS AT THE ANTERIOR DISTAL PORTION OF HIS NECK, PALPABLE AND AUDIBLE; NECK CONTINUES BEING SWOLLEN BUT HAS NOT APPARENTLY WORSENED. PATIENT RECEIVED TWO UNITS OF WHOLE BLOOD TODAY, HGB WAS 6.1 THIS MORNING, UP TO 7.4 AFTERWARDS. PATIENT ALSO RECEIVED TWO UNITS OF ALBUMIN. LUNG SOUNDS FROM BEFORE THESE INFUSIONS WERE FINE CRACKLES/CREPITUS IN UPPERS, SCATTERED INSPIRATORY WHEEZING, AND INSPIRTORY RHONCHI THROUGH THE MIDDLE AND UPPER LUNG HERNANDEZ. DISCUSSED WHETHER PATIENT MAY NEED LASIX GIVEN WHEEZES WITH DR. CASTLE AND DR. NORIEGA, BUT PATIENT IS ALSO MAKING 100-240 CCS OF URINE PER HOUR, CONCENTRATED IN APPEARANCE. PATIENT SERUM SODIUM ELEVATED, AND ON RISE, DISCUSSED WITH DRS. NORIEGA AND TIN AND NEW ORDER TO INCREASE H2O FLUSHES IN TUBE FEED TO 250 CCS Q6 HOURS. PATIENT DOES HAVE GENERALIZED EDEMA ABOUT 2+ PITTING; MD AWARE. NO BM THIS SHIFT, BUT OB STOOL ORDERED PENDING BM, HOGSHEAD BUILDER AWARE
[2020-06-18] MEDS: Albuterol/Iprat 2.5/0.5MG 3 ML AMPUL.NEB INHALE (22:39)
--- NOTE | 2020-06-18 23:19 | PC.NURSE ---
pt sedated under the influences of propofol. pt has dyssynchrony with mechanical ventilation. sao2 have been persistently <88%. sao2 have been in the range of 86-87%. updraft tx given. endotracheal suction performed. moderate amounts of thick norman blood streaked sputum suctioned from the airway. the previous documentation reviewed with beverley matos. nohelia also informed when the rectal area was cleaned a small amount of julissa red blood encountered. the following adjustments made-1. propofol increased to 30 mcg/kg/min 2. fio2 increased to 90% 3. ac rate decreased to 20 bpm. with the changes made-sao2 holding at 89-90%.
[2020-06-19] VITALS (38 sets, daily range): BP systolic 83–141; BP diastolic 38–88; PULSE 77–107; RESP 16–30; TEMP 36.3–37.4; O2SAT 81–100
--- NOTE | 2020-06-19 | XR_ITS ---
EXAMINATION: CHEST 1 VIEW CLINICAL INFORMATION: Intubated. COMPARISON: Multiple prior exams are reviewed. The most recent is from the same day obtained at 0213 hours. TECHNIQUE: An AP view of the chest was obtained at 0305 hours. FINDINGS: The cardiac silhouette is stable. The tip of the endotracheal tube is just within the right mainstem bronchus. Retraction by approximately 4 cm is recommended. The right central venous line is in unchanged position. There is persistent multifocal airspace disease with likely small bilateral pleural effusions. There are no pneumothoraces. There is persistent gas within the visualized neck. The osseous structures are stable. XR/XR chest 1V IMPRESSION: Interval advancement of endotracheal tube 2 within the right mainstem bronchus. Retraction is recommended. Persistent multifocal airspace disease, small bilateral pleural effusions and subcutaneous gas within the neck.
--- NOTE | 2020-06-19 | XR_ITS ---
EXAMINATION: CHEST 1 VIEW CLINICAL INFORMATION: Intubated. Follow-up worsening aberrant gas. COMPARISON: 06/17/2020. TECHNIQUE: An AP view of the chest is provided. FINDINGS: The cardiac silhouette is stable. The tip of the endotracheal tube is approximately 9 cm above the harish, just below the thoracic inlet. Since the prior exam, the enteric tube has been removed. The right central venous line is in unchanged position. There is patchy multifocal airspace disease, notably increased within the lung bases. Pneumomediastinum has decreased. There are no demonstrable pneumothoraces. There is increasing subcutaneous gas within the neck. XR/XR chest 1V IMPRESSION: Endotracheal tube in place. The tip is approximately 9 cm above the harish. Increasing multifocal airspace disease, particularly within lung bases. Decreasing pneumomediastinum with increasing subcutaneous gas within the neck.
--- NOTE | 2020-06-19 | XR_ITS ---
EXAMINATION: CHEST 1 VIEW CLINICAL INFORMATION: Endotracheal tube repositioning. COMPARISON: Same day chest radiograph obtained at 0154 hours. TECHNIQUE: An AP view of the chest was obtained at 0213 hours. FINDINGS: The cardiac silhouette is not enlarged. The tip of the endotracheal tube is approximately 4 cm above the harish. The right central venous line is in unchanged position. There is stable multifocal airspace disease with likely small bilateral pleural effusions. There are no pneumothoraces. The osseous structures are stable. There is persistent gas within the visualized portions of the neck. XR/XR chest 1V IMPRESSION: Endotracheal tube in place. The tip is approximately 4 cm above the harish. Persistent multifocal airspace disease and bilateral pleural effusions. Persistent gas within the visualized portions of the neck.
[2020-06-19] MEDS: Insulin Lispro 100 UNIT/ML 3 ML VIAL SUBCUT ×2 (00:30→05:51)
[2020-06-19] MEDS: 0.9 % Sodium Chloride Flush 3 ML SYRINGE IVFLUSH ×3 (01:17→15:55)
[2020-06-19] MEDS: propofoL 200 MG/20 ML VIAL 50 MG IVPUSH (01:28)
[2020-06-19 02:12] LABS: Base Excess VBG 16.4 mmol/L; HCO3 VBG 49 mmol/L; Oxygen Saturation VBG 87.8 %; PCO2 VBG > 150 mmhg; PO2 VBG 73 mmhg
[2020-06-19 03:06] LABS: Basophils Percent Auto 0.1 % (0-2); Hematocrit 22.3 % (42-52); Imm Gran Abs Auto 1.25 X10*3/uL (0.00-0.03); Imm Gran Pct Auto 4.5 % (0.0-0.4); Lymphocytes Absolute Auto 1.4 X10*3/uL (1.2-4.9); Lymphocytes Percent Auto 4.9 % (20-40); MANUAL DIFF FLAG SCAN; Mean Platelet Volume 12.5 fL (9.4-12.4); Monocytes Absolute Auto 0.8 X10*3/uL (0.1-1.2); Monocytes Percent Auto 2.7 % (2-11); NRBC Pct Auto 0.4 /100WBC (0.0-0.2); Neutrophils Absolute Auto 24.6 X10*3/uL (2.0-8.3); Neutrophils Percent Auto 87.8 % (45-73); Platelet Count 215 X10*3/uL (160-400); Red Blood Count 2.23 X10*6/uL (4.60-5.80); Red Cell Distribution Width 17.4 % (11.0-16.0); SCAN SMEAR FLAG 1
[2020-06-19 03:07] LABS: Hemoglobin 6.7 g/dl (14.0-18.0)
[2020-06-19 03:11] LABS: INTERNATIONAL NORM RATIO 1.5 (0.9-1.1); Prothrombin Time 18.3 SEC (10.8-13.0)
[2020-06-19 03:13] LABS: Base Excess VBG 10.5 mmol/L; HCO3 VBG 43 mmol/L; Oxygen Saturation VBG 89.1 %; PCO2 VBG > 150 mmhg; PO2 VBG 78 mmhg
[2020-06-19 03:14] LABS: pH VBG 7.05 (7.32-7.43)
[2020-06-19] MEDS: Pantoprazole Sodium 40 MG/10 ML VIAL 80 MG IVPUSH (03:16)
[2020-06-19 03:24] LABS: SLIDE REVIEW VERIFIED
--- NOTE | 2020-06-19 03:30 | W.PM.CCHP ---
Procedures Abscess I/D Date of Service: 06/19/20 Consent for Procedure: Emergent-no informed consent obtained Intubation Time out performed: Yes Sedative: other (already on Propofo ICU infusssion and Nimbex ) Paralytic: other (Nimbex gtt) Laryngoscope: fiber optic video scope Assist device used: Bougie ET tube size: 7.5 ET tube uncuffed: Yes Tube secured depth (cm): 26 Tube secured location: lips Tube placement confirmation: visualized tube passing through cords, equal breath sounds bilaterally and confirmation by capnometry Intubation complications: hypoxia
[2020-06-19 03:32] LABS: Lactic Acid 5.8 mmol/L (0.5-2.0)
[2020-06-19 03:35] LABS: Base Excess VBG 13.5 mmol/L; HCO3 VBG 44 mmol/L; Oxygen Saturation VBG 69.2 %; PCO2 VBG 131 mmhg; PO2 VBG 47 mmhg; pH VBG 7.15 (7.32-7.43)
[2020-06-19 03:37] LABS: Alanine Aminotransferase 20 U/L (0-40); Alkaline Phosphatase 64 U/L (39-117); Anion Gap 12 (12-20); Aspartate Amino Transferase 22 U/L (5-37); Bilirubin Total 0.5 mg/dL (0.0-1.0); Blood Urea Nitrogen 55 mg/dL (9-16); Calcium 8.3 mg/dL (8.4-10.2); Carbon Dioxide 41 mmol/L (22-29); Chloride 109 mmol/L (96-108); Estimated Glomerular Filt Rate > 60; Glucose Random 358 mg/dL (60-115); Potassium 5.1 mmol/l (3.3-5.1); Sodium 157 mmol/L (135-145); Total Protein 4.7 g/dL (6.5-8.0)
[2020-06-19 03:39] LABS: Troponin-I High Sensitivity 9.9 ng/L (<3.5-35.0)
--- NOTE | 2020-06-19 03:50 | PM.CCN ---
Critical Care Event Note Summary Code activated: Yes Narrative: Clinical Precedent to this date: 74-year-old gentleman with underlying history of COPD and hypertension admitted on 06/05/2020 with hypoxic respiratory failure secondary to COVID-19. Hospital course complicated by progressive hypoxemia requiring intubation and ventilatory support starting on 06/07/2020. Overnight with development of subcutaneous emphysema in anterior neck and acute blood loss anemia. Today pt has had ongoing issues with ventilation as it also happened yesterday, today however the patient had episodes of hypoxia which was initially intermittent but subsequently became on going with O2 sat as low as 85% despite of adjustments on the vent. It was also difficult to ventilate the patient with the Ambu bag and even suctioning was difficult, his abdomen seems slightly distended, OG feedings were stopped; a chest x-ray was obtained and it was noted that the endotracheal tube was just past the vocal cords, with question of possibility of this providing adequate ventilation therefore this was advanced by respiratory therapist, a subsequent x-ray revealed the endotracheal tube going into the right main bronchi. The case was discussed with Dr. Arambula given the patient's end-tidal of 80 and having increased peak pressures as high as 55 with an O2 sat of 84% despite of the repositioning of the endotracheal to therefore the decision for re-intubation was made. VS: at 2:00 a.m. blood pressure 130/46 her rate 107 respirations 28 and O2 sat 82% while on the vent with the following settings AC 28, 400, 12, FiO2 100 % General: Sedated Skin: Intact, no lesions or rash, no subcutaneous emphysema noted at the left neck or chest. Left flank ecchymosis noted. HEENT: Normocephalic, atraumatic, extraocular movements intact, neck is supple, no lymphadenopathy. Buccal mucosa dry. Throat midline. Cardiac: Clear S1-S2, no murmurs rubs or gallops. Pulmonary: Diminished coarse lung sounds bilaterally and throughout no apparent rhonchi or crackles. Abdomen: Protuberant, diminished bowel sounds, distended, soft. Musculoskeletal: Passive range of motion upper lower extremities reveal no cogwheeling, no leg edema or asymmetry. Left upper extremity however is slightly edematous in comparison to the right. Neurologic: As above, otherwise difficult to assess, sedated. Vascular: 2+ pulses upper and lower extremities distally. SIGNIFICANT LABORATORY DATA: Reviewed from this morning REVIEW OF IMAGES: Reviewed from yesterday, the patient does have pneumomediastinum with air extending into the neck anteriorly and posteriorly. ASSESSMENT AND PLAN: 1. Acute Respiratory arrest / Resp Failure in the setting on of diffuse lung injury inflammation due to COVID 19 2. Bradycardia due to hypoxia with near cardiac arrest 3. Upper GI bleed of unknown etiology Rapid sequence intubation with pre oxygenation was attempted, the patient initial O2 sat was 82%, this was done due to the fact that they endotracheal tube was almost out and after being advance, it appeared to have gone into the right mainstem. The patient is already sedated and paralyzed. Using a GlideScope endotracheal re-intubation was attempted after removing the already in place tube, unfortunately the patient had swollen inner airway complicated with oral bloody GI bleed contents into the mouth and nose. Martha driscoll was called, CPR was started and done x 5 min, the patient was ventilated via Ambu bag, 2 doses of epinephrine were administered; however the patient never lost his pulse. With the help of ER physician Dr Patel, a bougie catheter with subsequent endotracheal tube was placed with good change in coloration in the end-tidal CO2 detector. Large amount of coffee-ground emesis were aspirated from the patient's mouth, an NG-tube was placed subsequently and this was connected to low intermittent suction. I started patient on Protonix and Octreotide, order full set of laboratories, INR, typed and crossed and ordered 2 units of packed red blood cells to be transfused. I spoke to the patient's healthcare proxy Maral Rodriguez, phone number [phone] I disclose all the events and also the patient's current clinical scenario and poor prognosis. A total of 30 minutes was spent only talking to all the other family members via 3 [address] call as they do not speak [place] and I spoke to them in [place], finally after several discussions, they finally agreed to made the patient DNR and stated that they do not want anything else invasive or her eye ache to be done on his father if he was to have any further complications. Reviewed the patient's blood gas reveals significant respiratory acidosis with a pH of 7.1 and pCO2 of over 150. I believe the patient's difficult ventilation is due to the massive inflammation of his lungs and unfortunately despite of all the above and further adjustments on vent settings as well as other attempts, his prognosis is poor and it is likely that he will pass to a better life sometime in the near future. Patient's overall outcome at this point, he is still alive with the following vital signs blood pressure 105/43, heart rate 101, respirations 28 O2 sat 86% while on the vent with AC control, 28, 400, 12, FiO2 100. H&H was reported at 6.7 and 22.3 despite of patients having received a transfusion of 2 units of packed red blood cells yesterday morning. Arrangements may be made by our personnel for family member to visit and say their goodby Critical care time used for critical evaluation of this patient, diagnosis, treatment and coordination of care, review her records and documentation TOTAL CRITICAL CARE TIME 120 MIN Patient's care was discussed in detail with Dr. Silverman. He is aware of all the above as well as the plan of care for this patient. This case had a high probability of a clinically significant, sudden, or life threatening deterioration of this patient's condition which required my full and direct attention, intervention and personal management. Critical Care Time (minutes): 120
[2020-06-19] MEDS: Albumin Human 25 % 100 ML IV (03:51)
[2020-06-19] MEDS: propofoL 1,000 MG/100 ML VIAL 13.86 MG IVCONT ×4 (03:52→23:30)
--- NOTE | 2020-06-19 03:54 | PC.RT ---
see nursing notes
[2020-06-19] MEDS: Albuterol/Iprat 2.5/0.5MG 3 ML AMPUL.NEB INHALE ×2 (03:56→07:50)
[2020-06-19 04:03] LABS: Glucose, Whole Blood 261 mg/dL (60-115)
--- NOTE | 2020-06-19 04:17 | PC.NURSE ---
due to increasing peak airway pressures and inability to ventilate d/t noncompliance of lungs. multiple ventilator changes have been made with the addition of nimbex infusion. despite multiple trials to improve pulmonary status these efforts have been to no avail. beverley matos has made the decision to replace endotracheal tube. with resp therapy at bedside beverley matos using glide scope attempted to transorally reintubate pt. unexpectantly the posterior oropharyx was filled with coffee ground emesis as well as subcutaneous emphysema making intubation impossible. due to loss of airway. a code blue was called. pt was artifically ventilated with ambu bag using face mask. please see code sheet for further details. dr velazquez responded and used a bouggie to intubate pt. colormetric color change and bilat breath sounds noted post intubation. cxr confirms placement of ogt and ett tubes. dr ochoa in to examine pt. ogt placed to low suction 500 ml of bloody emesis obtained. 2 units of rbcs to be transfused. 1st unit of blood up. protonex 80 mg ivp given. octreotide infusion to be implemented at 50 mcg/hr.
[2020-06-19] MEDS: Octreotide Acetate 500 MCG in 0.9 % Sodium Chloride 500 ML 50.1 MCG IVCONT ×2 (05:00→14:17)
[2020-06-19 05:02] LABS: Reflex Lactate? Lactic Acid Added
[2020-06-19 05:54] LABS: Basophils Percent Auto 0.2 % (0-2); Eosinophils Absolute Auto 0.2 X10*3/uL (0.0-0.4); Hematocrit 27.3 % (42-52); Hemoglobin 8.5 g/dl (14.0-18.0); Imm Gran Abs Auto 0.49 X10*3/uL (0.00-0.03); Imm Gran Pct Auto 2.1 % (0.0-0.4); Lymphocytes Absolute Auto 0.4 X10*3/uL (1.2-4.9); Lymphocytes Percent Auto 1.6 % (20-40); MANUAL DIFF FLAG SCAN; Mean Corpuscular HGB Conc 31.1 g/dl (31.0-36.0); Mean Corpuscular Hemoglobin 30.6 pg (27.0-33.0); Mean Corpuscular Volume 98.2 fL (80-98); Monocytes Absolute Auto 0.4 X10*3/uL (0.1-1.2); Monocytes Percent Auto 1.7 % (2-11); NRBC Pct Auto 0.2 /100WBC (0.0-0.2); Neutrophils Absolute Auto 21.3 X10*3/uL (2.0-8.3); Neutrophils Percent Auto 93.4 % (45-73); Platelet Count 176 X10*3/uL (160-400); Red Blood Count 2.78 X10*6/uL (4.60-5.80); Red Cell Distribution Width 16.1 % (11.0-16.0); SCAN SMEAR FLAG 1; White Blood Count 22.8 X10*3/uL (4.8-10.8)
[2020-06-19 05:55] LABS: Glucose, Whole Blood 239 mg/dL (60-115)
[2020-06-19 06:01] LABS: Base Excess VBG 15.2 mmol/L; HCO3 VBG 49 mmol/L; Oxygen Saturation VBG 87.7 %; PCO2 VBG > 150 mmhg; PO2 VBG 67 mmhg
[2020-06-19 06:02] LABS: pH VBG 7.07 (7.32-7.43)
[2020-06-19 06:16] LABS: ~Lactic Acid-LAB USE ONLY 1.9 mmol/L (0.5-2.0)
[2020-06-19 06:24] LABS: Alanine Aminotransferase 26 U/L (0-40); Albumin Level 3.5 g/dL (3.5-5.0); Alkaline Phosphatase 64 U/L (39-117); Anion Gap 8 (12-20); Aspartate Amino Transferase 25 U/L (5-37); Bilirubin Total 0.6 mg/dL (0.0-1.0); Blood Urea Nitrogen 59 mg/dL (9-16); Calcium 8.4 mg/dL (8.4-10.2); Carbon Dioxide 44 mmol/L (22-29); Chloride 107 mmol/L (96-108); Creatinine Clr Calc Pharmacy 81.8; Estimated Glomerular Filt Rate > 60; Glucose Random 278 mg/dL (60-115); Magnesium 2.5 mg/dL (1.6-2.6); Phosphorus 6.6 mg/dL (2.7-4.5); Potassium 5.3 mmol/l (3.3-5.1); Sodium 154 mmol/L (135-145); Total Protein 5.1 g/dL (6.5-8.0)
--- NOTE | 2020-06-19 08:23 | PC.NURSE ---
Assumed care at 0700 - Current vent settings AC 30, TV 400, PEEP 14, FIO2 100% - Peak pressures high 70's - respiratory at bedside. O2 sat down to 72% and bagged with 100% by RT - O2 sat came back up but maintaining 86-88%. BP down to 89/43 map 59, moderate amount of coffee ground secretions through both inline and OGT to intermittent suction. MD notified via tiger text - no new orders at this time. Awaiting family arrival - pile driving supervisor notified. Will continue to monitor.
[2020-06-19] MEDS: methylPREDNISolone Sod Succ/PF 125 MG/2 ML VIAL 60 MG IVPUSH (08:53)
[2020-06-19] MEDS: Chlorhexidine Gluc Oral Rinse 15 ML MOUTHWASH BUCCAL ×3 (08:53→21:47)
[2020-06-19] MEDS: Insulin Glargine,Hum.rec.anlog 100 UNIT/ML 10 ML VIAL 30 UNIT SUBCUT (09:03)
--- NOTE | 2020-06-19 10:45 | P.PNCC_ITS ---
Subjective Subjective Date of Service: 06/19/20 Interval History: 74-year-old gentleman with underlying history of COPD and hypertension admitted on 06/05/2020 with hypoxic respiratory failure secondary to COVID-19. Hospital course complicated by progressive hypoxemia requiring intubation and ventilatory support starting on 06/07/2020. Overnight with increasing peak and plateau pressures, decreasing ventilation, worsening hypoxemia, significant respiratory acidosis despite maximal ventilatory support. ET tube exchanged attempted as a last ditch measure with brief bradycardic respiratory arrest during the ET tube exchange. CPR performed for to oz with return of spontaneous circulation. However, no improvement in ventilation. Overall extremity poor prognosis discussed with patient's family and code status has been changed to do not resuscitate /no heroic measures. Also, with worsening UGIB secondary to systemic glucocorticoids and stress gastritis - transfused PRBC, started on octreotide and PPI. Physical Exam Vital Signs: Vital Signs: Last Vital Signs Temp 97.7 F 06/19/20 09:00 Pulse 93 06/19/20 10:00 Resp 29 H 06/19/20 10:00 BP 90/46 L 06/19/20 10:00 Pulse Ox 87 L 06/19/20 10:00 Body Mass Index 31.8 Const: General: no acute distress Eyes: Sclerae: sclerae normal Neck: Neck: Yes no lymphadenopathy, Yes trachea midline and Yes supple Resp: Auscultation: crackles bilateral and diffuse Cardio: Rate: regular rate Rhythm: regular rhythm Heart sounds: no gallops, no murmurs and no rubs GI: Palpation (GI): Soft to palpation and Other GI palpation findings present ( Nontender) Auscultation: normal bowel sounds Extrem: General: No clubbing, No cyanosis and Yes edema ( 1+ bilateral) Objective Data Labs CBC & Chem 7: 06/19/20 05:40 06/19/20 05:40 Labs: Laboratory Results - last 24 hr 06/18/20 06/18/20 06/18/20 05:40 07:27 09:44 WBC RBC Hgb Hct MCV MCH MCHC RDW Plt Count MPV Immature Gran % (Auto) Neut % (Auto) Lymph % (Auto) Atkinson % (Auto) Eos % (Auto) Baso % (Auto) Lymph # (Auto) Atkinson # (Auto) Eos # (Auto) Baso # (Auto) Abs Immat Gran (auto) Absolute Neuts (auto) Absolute Nucleated RBC Nucleated RBC % (auto) Smear Tech's Comments Smear Path Review SEE NOTE PT INR VBG pH VBG pCO2 VBG Oxygen Liters/Min VBG pO2 VBG HCO3 VBG O2 Saturation VBG Base Excess Sodium Potassium Chloride Carbon Dioxide Anion Gap BUN Creatinine Estim Creat Clear Calc Estimated GFR POC Glucose 223 H Random Glucose Lactic Acid Lactic Acid Fup @ 2Hr Calcium Phosphorus Magnesium Total Bilirubin AST ALT Alkaline Phosphatase Troponin I High Sens Total Protein Albumin Blood Type A Positive Antibody Screen NEGATIVE Crossmatch See Detail 06/18/20 06/18/20 06/18/20 11:19 15:30 18:02 WBC 16.0 H RBC 2.48 L D Hgb 7.4 L D Hct 23.7 L MCV 95.6 D MCH 29.8 MCHC 31.2 RDW 16.4 H Plt Count 162 MPV 11.9 Immature Gran % (Auto) Neut % (Auto) Lymph % (Auto) Atkinson % (Auto) Eos % (Auto) Baso % (Auto) Lymph # (Auto) Atkinson # (Auto) Eos # (Auto) Baso # (Auto) Abs Immat Gran (auto) Absolute Neuts (auto) Absolute Nucleated RBC 0.000 Nucleated RBC % (auto) 0.0 Smear Tech's Comments Smear Path Review PT INR VBG pH VBG pCO2 VBG Oxygen Liters/Min VBG pO2 VBG HCO3 VBG O2 Saturation VBG Base Excess Sodium Potassium Chloride Carbon Dioxide Anion Gap BUN Creatinine Estim Creat Clear Calc Estimated GFR POC Glucose 248 H 289 H Random Glucose Lactic Acid Lactic Acid Fup @ 2Hr Calcium Phosphorus Magnesium Total Bilirubin AST ALT Alkaline Phosphatase Troponin I High Sens Total Protein Albumin Blood Type Antibody Screen Crossmatch 06/19/20 06/19/20 06/19/20 00:10 01:58 02:56 WBC RBC Hgb Hct MCV MCH MCHC RDW Plt Count MPV Immature Gran % (Auto) Neut % (Auto) Lymph % (Auto) Atkinson % (Auto) Eos % (Auto) Baso % (Auto) Lymph # (Auto) Atkinson # (Auto) Eos # (Auto) Baso # (Auto) Abs Immat Gran (auto) Absolute Neuts (auto) Absolute Nucleated RBC Nucleated RBC % (auto) Smear Tech's Comments Smear Path Review PT INR VBG pH 7.10 L* VBG pCO2 > 150 VBG Oxygen Liters/Min TNP VBG pO2 73 VBG HCO3 49 VBG O2 Saturation 87.8 VBG Base Excess 16.4 Sodium 157 H Potassium 5.1 Chloride 109 H Carbon Dioxide 41 H* Anion Gap 12 BUN 55 H Creatinine 0.77 Estim Creat Clear Calc 84.0 Estimated GFR > 60 POC Glucose 261 H Random Glucose 358 H* Lactic Acid Lactic Acid Fup @ 2Hr Calcium 8.3 L Phosphorus Magnesium Total Bilirubin 0.5 AST 22 D ALT 20 Alkaline Phosphatase 64 Troponin I High Sens Total Protein 4.7 L Albumin 3.0 L Blood Type Antibody Screen Crossmatch 06/19/20 06/19/20 06/19/20 02:57 02:57 02:57 WBC 28.0 H RBC 2.23 L Hgb 6.7 L* Hct 22.3 L MCV 100.0 H MCH 30.0 MCHC 30.0 L RDW 17.4 H Plt Count 215 D MPV 12.5 H Immature Gran % (Auto) 4.5 H Neut % (Auto) 87.8 H Lymph % (Auto) 4.9 L Atkinson % (Auto) 2.7 Eos % (Auto) 0.0 Baso % (Auto) 0.1 Lymph # (Auto) 1.4 Atkinson # (Auto) 0.8 Eos # (Auto) 0.0 Baso # (Auto) 0.0 Abs Immat Gran (auto) 1.25 H Absolute Neuts (auto) 24.6 H Absolute Nucleated RBC 0.110 H Nucleated RBC % (auto) 0.4 H Smear Tech's Comments VERIFIED Smear Path Review PT 18.3 H INR 1.5 H VBG pH VBG pCO2 VBG Oxygen Liters/Min VBG pO2 VBG HCO3 VBG O2 Saturation VBG Base Excess Sodium Potassium Chloride Carbon Dioxide Anion Gap BUN Creatinine Estim Creat Clear Calc Estimated GFR POC Glucose Random Glucose Lactic Acid 5.8 H* Lactic Acid Fup @ 2Hr Calcium Phosphorus Magnesium Total Bilirubin AST ALT Alkaline Phosphatase Troponin I High Sens Total Protein Albumin Blood Type Antibody Screen Crossmatch 06/19/20 06/19/20 06/19/20 02:57 03:00 03:27 WBC RBC Hgb Hct MCV MCH MCHC RDW Plt Count MPV Immature Gran % (Auto) Neut % (Auto) Lymph % (Auto) Atkinson % (Auto) Eos % (Auto) Baso % (Auto) Lymph # (Auto) Atkinson # (Auto) Eos # (Auto) Baso # (Auto) Abs Immat Gran (auto) Absolute Neuts (auto) Absolute Nucleated RBC Nucleated RBC % (auto) Smear Tech's Comments Smear Path Review PT INR VBG pH 7.05 L* 7.15 L* VBG pCO2 > 150 131 VBG Oxygen Liters/Min TNP Not Reportable VBG pO2 78 47 VBG HCO3 43 44 VBG O2 Saturation 89.1 69.2 VBG Base Excess 10.5 13.5 Sodium Potassium Chloride Carbon Dioxide Anion Gap BUN Creatinine Estim Creat Clear Calc Estimated GFR POC Glucose Random Glucose Lactic Acid Lactic Acid Fup @ 2Hr Calcium Phosphorus Magnesium Total Bilirubin AST ALT Alkaline Phosphatase Troponin I High Sens 9.9 Total Protein Albumin Blood Type Antibody Screen Crossmatch 06/19/20 06/19/20 06/19/20 05:38 05:40 05:40 WBC 22.8 H RBC 2.78 L D Hgb 8.5 L D Hct 27.3 L D MCV 98.2 H MCH 30.6 MCHC 31.1 RDW 16.1 H Plt Count 176 MPV 12.0 Immature Gran % (Auto) 2.1 H Neut % (Auto) 93.4 H Lymph % (Auto) 1.6 L Atkinson % (Auto) 1.7 L Eos % (Auto) 1.0 Baso % (Auto) 0.2 Lymph # (Auto) 0.4 L Atkinson # (Auto) 0.4 Eos # (Auto) 0.2 Baso # (Auto) 0.0 Abs Immat Gran (auto) 0.49 H Absolute Neuts (auto) 21.3 H Absolute Nucleated RBC 0.040 H Nucleated RBC % (auto) 0.2 Smear Tech's Comments Smear Path Review PT INR VBG pH VBG pCO2 VBG Oxygen Liters/Min VBG pO2 VBG HCO3 VBG O2 Saturation VBG Base Excess Sodium 154 H Potassium 5.3 H Chloride 107 Carbon Dioxide 44 H* Anion Gap 8 L BUN 59 H Creatinine 0.79 Estim Creat Clear Calc 81.8 Estimated GFR > 60 POC Glucose 239 H Random Glucose 278 H Lactic Acid Lactic Acid Fup @ 2Hr Calcium 8.4 Phosphorus 6.6 H Magnesium 2.5 Total Bilirubin 0.6 AST 25 ALT 26 Alkaline Phosphatase 64 Troponin I High Sens Total Protein 5.1 L Albumin 3.5 Blood Type Antibody Screen Crossmatch 06/19/20 06/19/20 05:40 05:40 WBC RBC Hgb Hct MCV MCH MCHC RDW Plt Count MPV Immature Gran % (Auto) Neut % (Auto) Lymph % (Auto) Atkinson % (Auto) Eos % (Auto) Baso % (Auto) Lymph # (Auto) Atkinson # (Auto) Eos # (Auto) Baso # (Auto) Abs Immat Gran (auto) Absolute Neuts (auto) Absolute Nucleated RBC Nucleated RBC % (auto) Smear Tech's Comments Smear Path Review PT INR VBG pH 7.07 L* VBG pCO2 > 150 VBG Oxygen Liters/Min TNP VBG pO2 67 VBG HCO3 49 VBG O2 Saturation 87.7 VBG Base Excess 15.2 Sodium Potassium Chloride Carbon Dioxide Anion Gap BUN Creatinine Estim Creat Clear Calc Estimated GFR POC Glucose Random Glucose Lactic Acid Lactic Acid Fup @ 2Hr 1.9 Calcium Phosphorus Magnesium Total Bilirubin AST ALT Alkaline Phosphatase Troponin I High Sens Total Protein Albumin Blood Type Antibody Screen Crossmatch Microbiology Microbiology Results: Microbiology 06/10/20 05:47 Blood - Venous Blood Culture - Final No growth after 5 days. 06/10/20 05:47 Blood - Venous Blood Culture - Final No growth after 5 days. 06/09/20 15:39 Sputum - Suctioned Gram Stain - Final 06/09/20 15:39 Sputum - Suctioned Sputum Culture - Final 06/04/20 17:18 Blood - Venous Blood Culture - Final No growth after 5 days. 06/04/20 17:18 Blood - Venous Blood Culture - Final No growth after 5 days. 06/07/20 08:25 Sputum - Suctioned Gram Stain - Final 06/07/20 08:25 Sputum - Suctioned Sputum Culture - Final Progress Note: A&P Assessment and plan (1) Acute respiratory distress syndrome (ARDS) due to COVID-19 virus: Status: Acute Assessment and Plan: Assessment: 74-year-old gentleman admitted with acute hypoxic respiratory failure secondary to COVID-19 ARDS, requiring ventilatory support, further complicated by progressive hypoxic and hypercapnic respiratory failure despite maximal ventilatory support, subcutaneous emphysema, and upper GI bleed. Plan: Neuro: No acute issues. Cardiac: No acute issues. Pulmonary: Acute hypoxic respiratory failure secondary to COVID-19 ARDS re quiring ventilatory support. Overnight with Progressive hypoxemia and hypercapnia despite maximal ventilatory support. Tube exchange attempted as a last ditch effort with brief bradycardic respiratory arrest with returned spontaneous circulation after to amounts of CPR. Overall extremity poor prognosis. Code status discussed with family in changed to do not resuscitate. Continue with ventilatory support. Renal: No acute issues. Endo: No acute issues. GI: Upper GI bleed secondary to prolonged systemic glucocorticoids use on the background of DVT prophylaxis and stress gastritis in COVID-19 patient. Glucocorticoids stopped. Started on PPI and octreotide. Continue to monitor hemoglobin level. ID: No acute issues Heme/Onc: Subacute blood loss anemia, likely secondary to erosive gastritis. Lovenox held. Continue with blood product support and monitoring of hemoglobin level. Psych: No acute issues. Miscellaneous: No acute issues. Overall very poor prognosis. Prophylaxis: Intermittent pneumatic compression, Ppi Diet: tube feeds Critical care time spent: additional 90 minutes (2) Subcutaneous emphysema: Status: Acute (3) Respiratory failure, unspecified with hypoxia: Status: Acute (4) UGI bleed: Status: Acute Time Spent With Patient Time: Total time spent is greater than 50% in coordination of care (as documented) at patient's floor/unit and/or counseling patient: Total time spent with greater than 50% in coordination of care (as documented) at patient's floor/unit and/or counseling patient:: 0 Critical Care Time Critical Care Time (minutes): 90
[2020-06-19] MEDS: acetaZOLAMIDE sodium 500 MG VIAL IVPUSH (12:26)
[2020-06-19 12:39] LABS: Glucose, Whole Blood 109 mg/dL (60-115)
--- NOTE | 2020-06-19 15:15 | PM.PNNEP ---
Subjective Subjective Interval history: 74-year-old gentleman with underlying history of COPD and hypertension admitted on 06/05/2020 with hypoxic respiratory failure secondary to COVID-19. Hospital course complicated by progressive hypoxemia requiring intubation. Course also c/b GIB, hypernatremia, and now hyperkalemia. Discussed with MICU staff, GOC actively being addressed. No escalating measures. Examination Deferred Discussed with MICU team. Physical Exam Vital Signs: Vital Signs: Last Vital Signs Temp 98.6 F 06/19/20 13:00 Pulse 88 06/19/20 14:00 Resp 30 H 06/19/20 13:00 BP 99/45 L 06/19/20 14:00 Pulse Ox 89 L 06/19/20 14:00 Body Mass Index 31.8 Assessment & Plan Assessment and plan (1) Hypernatremia: Problem details: In the setting of insensible losses of water likely from respiratory source Status: Acute Assessment and Plan: - per GOC no escalation of care - if however recommended by MICU team, a D5/W gtt at 175cc/hr would help correct electrolyte issues (2) Hyperkalemia: Problem details: Likely due to digested blood products from UGIB Status: Acute Assessment and Plan: Kayexalate to help bind gut potassium Ngtube for blood products lavage IVF support if deemed appropriate given GOC Procedures Abscess I/D Date of Service: 06/19/20
[2020-06-19] MEDS: Pantoprazole Sodium 40 MG/10 ML VIAL IVPUSH (15:55)
[2020-06-19] MEDS: Dextrose 50 % 25 GM/50 ML SYRINGE IVPUSH ×2 (17:55→23:30)
[2020-06-19 18:22] LABS: Glucose, Whole Blood 112 mg/dL (60-115)
[2020-06-19 18:22] LABS: Glucose, Whole Blood 56 mg/dL (60-115)
--- NOTE | 2020-06-19 18:25 | PC.NURSE ---
1800 POC 56 - 1 amp D50 IVP administered - 1815 POC up to 112 - MD notified, will continue to monitor.
[2020-06-19 20:12] LABS: Glucose, Whole Blood 107 mg/dL (60-115)
[2020-06-19 23:08] LABS: Glucose, Whole Blood 79 mg/dL (60-115)
[2020-06-20] VITALS (19 sets, daily range): BP systolic 96–118; BP diastolic 37–60; PULSE 79–508; RESP 30; TEMP 37.4–38; O2SAT 71–90
[2020-06-20] MEDS: Octreotide Acetate 500 MCG in 0.9 % Sodium Chloride 500 ML 50.1 MCG IVCONT ×2 (00:21→09:51)
[2020-06-20 05:30] LABS: Hematocrit 25.5 % (42-52); Hemoglobin 7.9 g/dl (14.0-18.0); Mean Corpuscular Hemoglobin 30.5 pg (27.0-33.0); Mean Corpuscular Volume 98.5 fL (80-98); NRBC Pct Auto 0.1 /100WBC (0.0-0.2); Platelet Count 112 X10*3/uL (160-400); Red Blood Count 2.59 X10*6/uL (4.60-5.80); Red Cell Distribution Width 15.9 % (11.0-16.0); White Blood Count 17.6 X10*3/uL (4.8-10.8)
[2020-06-20 05:36] LABS: Base Excess VBG 8.8 mmol/L; HCO3 VBG 37 mmol/L; Oxygen Saturation VBG 76.2 %; PCO2 VBG 80 mmhg; PO2 VBG 43 mmhg; pH VBG 7.29 (7.32-7.43)
[2020-06-20] MEDS: propofoL 1,000 MG/100 ML VIAL 13.86 MG IVCONT ×2 (05:41→09:51)
[2020-06-20] MEDS: Pantoprazole Sodium 40 MG/10 ML VIAL IVPUSH (05:42)
[2020-06-20 05:50] LABS: Band Neutrophils Percent 21 % (3-5); Neutrophils Absolute Manual 17.6 X10*3/uL (2.2-7.9); Neutrophils Percent Manual 79 % (45-73); Nucleated Red Blood Cells 1 /100WBC (0-0)
[2020-06-20 05:52] LABS: Basophilic Stippling 1+; Hypochromasia 1+; RBC Morphology NOTED
[2020-06-20 05:53] LABS: Acanthocytes 1+; Platelet Estimate SLIGHTLY DECREASED (NORMAL); Platelet Morphology Comment NORMAL
[2020-06-20 06:09] LABS: Alanine Aminotransferase 20 U/L (0-40); Albumin Level 2.7 g/dL (3.5-5.0); Alkaline Phosphatase 59 U/L (39-117); Anion Gap 11 (12-20); Aspartate Amino Transferase 21 U/L (5-37); Bilirubin Total 0.5 mg/dL (0.0-1.0); Blood Urea Nitrogen 91 mg/dL (9-16); Calcium 7.8 mg/dL (8.4-10.2); Carbon Dioxide 39 mmol/L (22-29); Chloride 110 mmol/L (96-108); Creatinine Clr Calc Pharmacy 32.6; Estimated Glomerular Filt Rate 33; Glucose Random 53 mg/dL (60-115); Magnesium 2.4 mg/dL (1.6-2.6); Phosphorus 4.7 mg/dL (2.7-4.5); Potassium 4.8 mmol/l (3.3-5.1); Sodium 155 mmol/L (135-145); Total Protein 4.4 g/dL (6.5-8.0)
--- NOTE | 2020-06-20 06:13 | PC.NURSE ---
PT MAINTAINED ON ASSIST CONTROL VENT SETTINGS OVERNIGHT. NO RESP DIFFICULTIES. O2 SAT 87-91% ON FIO2 AT 100%. SUCTIONING SMALL AMOUNT OF COFFEE GROUNDS FROM ETT. NGT TO LOW WALL SUCTION WITH SMALL AMOUNT OF COFFEE GROUNDS OUTPUT. NGT IRRIGATED WITH NO RESISTANCE. BP BORDERLINE. INFORMED PA DILON OF BP. NO NEW ORDERS AT THIS TIME. MONITOR SHOWS NSR, HR 70-80'S, FREQ PAC NOTED. URINE OUTPUT POOR, 20-40 ML Q2H. PA DILON AWARE OF LOW URINE OUTPUT. POC AT MIDNIGHT 79. DEXTROSE 50% 1/2 AMP GIVEN.
[2020-06-20] MEDS: Dextrose 50 % 25 GM/50 ML SYRINGE IVPUSH (06:38)
--- NOTE | 2020-06-20 06:39 | PC.NURSE ---
BLOOD GLUCOSE 53. ABNER VANEGAS INFORMED AND 1 AMP 50% DEXTROSE ORDERED AND GIVEN.
[2020-06-20] MEDS: 0.9 % Sodium Chloride Flush 3 ML SYRINGE IVFLUSH ×2 (07:05)
[2020-06-20 07:06] LABS: Glucose, Whole Blood 100 mg/dL (60-115)
[2020-06-20] MEDS: Chlorhexidine Gluc Oral Rinse 15 ML MOUTHWASH BUCCAL (07:43)
[2020-06-20 08:14] LABS: Glucose, Whole Blood 86 mg/dL (60-115)
[2020-06-20] MEDS: Albumin Human 25 % 100 ML IV (08:51)
[2020-06-20 09:38] LABS: Glucose, Whole Blood 77 mg/dL (60-115)
--- NOTE | 2020-06-20 10:34 | PM.CCPN ---
Subjective Subjective Date of Service: 06/20/20 Interval History: 74-year-old gentleman with underlying history of COPD and hypertension admitted on 06/05/2020 with hypoxic respiratory failure secondary to COVID-19. Hospital course complicated by progressive hypoxemia requiring intubation and ventilatory support starting on 06/07/2020, brief bradycardic arrest on 06/19/2020 with ROSC after 2 rounds of CPR, UGIB (presumably stress gastritis from glucocrticoids and DVT prophylaxis). With overal poor prognosis family chnaged code status to DNR. No events overnight. Physical Exam Vital Signs: Vital Signs: Last Vital Signs Temp 100.4 F 06/20/20 07:44 Pulse 82 06/20/20 09:54 Resp 30 H 06/20/20 09:54 BP 101/38 L 06/20/20 09:54 Pulse Ox 89 L 06/20/20 09:54 Body Mass Index 31.8 Const: General: no acute distress and other ( sedated on the vent, anasarca) Eyes: Sclerae: sclerae normal Neck: Neck: Yes no lymphadenopathy, Yes trachea midline and Yes supple Resp: Auscultation: crackles bilateral and diffuse Cardio: Rate: regular rate Rhythm: regular rhythm Heart sounds: no gallops, no murmurs and no rubs GI: Palpation (GI): Soft to palpation and Other GI palpation findings present ( Nontender) Auscultation: normal bowel sounds Extrem: General: No clubbing, No cyanosis and Yes edema ( 1+ bilateral) Objective Data Labs CBC & Chem 7: 06/20/20 05:06 06/20/20 05:06 Labs: Laboratory Results - last 24 hr 06/19/20 06/19/20 06/19/20 12:30 17:52 18:14 WBC RBC Hgb Hct MCV MCH MCHC RDW Plt Count MPV Immature Gran % (Auto) Neut % (Auto) Lymph % (Auto) [place] % (Auto) Eos % (Auto) Baso % (Auto) Lymph # (Auto) [place] # (Auto) Eos # (Auto) Baso # (Auto) Abs Immat Gran (auto) Absolute Neuts (auto) Absolute Nucleated RBC Nucleated RBC % (auto) Neutrophils % (Manual) Band Neutrophils % Abs Neuts (Manual) Nucleated RBCs Platelet Estimate Plt Morphology Comment RBC Morphology Hypochromasia Basophilic Stippling Acanthocytes (Spur) VBG pH VBG pCO2 VBG Oxygen Liters/Min VBG pO2 VBG HCO3 VBG O2 Saturation VBG Base Excess Sodium Potassium Chloride Carbon Dioxide Anion Gap BUN Creatinine Estim Creat Clear Calc Estimated GFR POC Glucose 109 56 L* 112 Random Glucose Calcium Phosphorus Magnesium Total Bilirubin AST ALT Alkaline Phosphatase Total Protein Albumin 06/19/20 06/19/20 06/20/20 19:51 22:51 05:06 WBC 17.6 H RBC 2.59 L Hgb 7.9 L Hct 25.5 L MCV 98.5 H MCH 30.5 MCHC 31.0 RDW 15.9 Plt Count 112 L D MPV 12.0 Immature Gran % (Auto) Cancelled Neut % (Auto) Cancelled Lymph % (Auto) Cancelled [place] % (Auto) Cancelled Eos % (Auto) Cancelled Baso % (Auto) Cancelled Lymph # (Auto) Cancelled [place] # (Auto) Cancelled Eos # (Auto) Cancelled Baso # (Auto) Cancelled Abs Immat Gran (auto) Cancelled Absolute Neuts (auto) Cancelled Absolute Nucleated RBC 0.020 H Nucleated RBC % (auto) 0.1 Neutrophils % (Manual) 79 H Band Neutrophils % 21 H Abs Neuts (Manual) 17.6 H Nucleated RBCs 1 H Platelet Estimate SLIGHTLY DECREASED Plt Morphology Comment NORMAL RBC Morphology NOTED Hypochromasia 1+ Basophilic Stippling 1+ Acanthocytes (Spur) 1+ VBG pH VBG pCO2 VBG Oxygen Liters/Min VBG pO2 VBG HCO3 VBG O2 Saturation VBG Base Excess Sodium Potassium Chloride Carbon Dioxide Anion Gap BUN Creatinine Estim Creat Clear Calc Estimated GFR POC Glucose 107 79 Random Glucose Calcium Phosphorus Magnesium Total Bilirubin AST ALT Alkaline Phosphatase Total Protein Albumin 06/20/20 06/20/20 06/20/20 05:06 05:10 07:00 WBC RBC Hgb Hct MCV MCH MCHC RDW Plt Count MPV Immature Gran % (Auto) Neut % (Auto) Lymph % (Auto) [place] % (Auto) Eos % (Auto) Baso % (Auto) Lymph # (Auto) [place] # (Auto) Eos # (Auto) Baso # (Auto) Abs Immat Gran (auto) Absolute Neuts (auto) Absolute Nucleated RBC Nucleated RBC % (auto) Neutrophils % (Manual) Band Neutrophils % Abs Neuts (Manual) Nucleated RBCs Platelet Estimate Plt Morphology Comment RBC Morphology Hypochromasia Basophilic Stippling Acanthocytes (Spur) VBG pH 7.29 L VBG pCO2 80 VBG Oxygen Liters/Min TNP VBG pO2 43 VBG HCO3 37 VBG O2 Saturation 76.2 VBG Base Excess 8.8 Sodium 155 H Potassium 4.8 Chloride 110 H Carbon Dioxide 39 H Anion Gap 11 L BUN 91 H* D Creatinine 1.98 H Estim Creat Clear Calc 32.6 Estimated GFR 33 POC Glucose 100 Random Glucose 53 L* Calcium 7.8 L D Phosphorus 4.7 H Magnesium 2.4 Total Bilirubin 0.5 AST 21 ALT 20 Alkaline Phosphatase 59 Total Protein 4.4 L Albumin 2.7 L D 06/20/20 06/20/20 07:49 09:27 WBC RBC Hgb Hct MCV MCH MCHC RDW Plt Count MPV Immature Gran % (Auto) Neut % (Auto) Lymph % (Auto) [place] % (Auto) Eos % (Auto) Baso % (Auto) Lymph # (Auto) [place] # (Auto) Eos # (Auto) Baso # (Auto) Abs Immat Gran (auto) Absolute Neuts (auto) Absolute Nucleated RBC Nucleated RBC % (auto) Neutrophils % (Manual) Band Neutrophils % Abs Neuts (Manual) Nucleated RBCs Platelet Estimate Plt Morphology Comment RBC Morphology Hypochromasia Basophilic Stippling Acanthocytes (Spur) VBG pH VBG pCO2 VBG Oxygen Liters/Min VBG pO2 VBG HCO3 VBG O2 Saturation VBG Base Excess Sodium Potassium Chloride Carbon Dioxide Anion Gap BUN Creatinine Estim Creat Clear Calc Estimated GFR POC Glucose 86 77 Random Glucose Calcium Phosphorus Magnesium Total Bilirubin AST ALT Alkaline Phosphatase Total Protein Albumin Microbiology Microbiology Results: Microbiology 06/10/20 05:47 Blood - Venous Blood Culture - Final No growth after 5 days. 06/10/20 05:47 Blood - Venous Blood Culture - Final No growth after 5 days. 06/09/20 15:39 Sputum - Suctioned Gram Stain - Final 06/09/20 15:39 Sputum - Suctioned Sputum Culture - Final 06/04/20 17:18 Blood - Venous Blood Culture - Final No growth after 5 days. 06/04/20 17:18 Blood - Venous Blood Culture - Final No growth after 5 days. 06/07/20 08:25 Sputum - Suctioned Gram Stain - Final 06/07/20 08:25 Sputum - Suctioned Sputum Culture - Final Progress Note: A&P Assessment and plan (1) Acute respiratory distress syndrome (ARDS) due to COVID-19 virus: Status: Acute Assessment and Plan: Assessment: 74-year-old gentleman admitted with acute hypoxic respiratory failure secondary to COVID-19 ARDS, requiring ventilatory support, further complicated by progressive hypoxic and hypercapnic respiratory failure despite maximal ventilatory support, subcutaneous emphysema, bradycardic arrest, and upper GI bleed. Plan: Neuro: No acute issues. Cardiac: Brief bradycardic respiratory arrest with return of spontaneous circulation after two rounds of CPR on 06/19/2020. Pulmonary: Acute hypoxic respiratory failure secondary to COVID-19 ARDS requiring ventilatory support. Continue with ventilatory support. Renal: Acute renal failure. Nephrology service care appreciated. Continue with colloidal support. Endo: No acute issues. GI: Upper GI bleed secondary to prolonged systemic glucocorticoids use on the background of DVT prophylaxis and stress gastritis in COVID-19 patient. Glucocorticoids stopped. Continue octreotide for the next 24 hours. Continue PPI. Continue to monitor hemoglobin level. ID: No acute issues Heme/Onc: Subacute blood loss anemia, likely secondary to stress gastritis. Lovenox held. Continue with blood product support and monitoring of hemoglobin level. Psych: No acute issues. Miscellaneous: No acute issues. Overall extremely poor prognosis. Code status discussed with family and changed to do not resuscitate. Prophylaxis: Intermittent pneumatic compression, Ppi Diet: tube feeds Critical care time spent: 60minutes (2) Respiratory failure, unspecified with hypoxia: Status: Acute (3) UGI bleed: Status: Acute (4) Acute renal failure: Status: Acute Time Spent With Patient Time: Total time spent is greater than 50% in coordination of care (as documented) at patient's floor/unit and/or counseling patient: Total time spent with greater than 50% in coordination of care (as documented) at patient's floor/unit and/or counseling patient:: 0 Critical Care Time Critical Care Time (minutes): 60
--- NOTE | 2020-06-20 10:52 | MHC.CM.PN ---
Patient remains intubated/vented in ICU. Patient is from home without services. Continue to monitor for d/c needs.
[2020-06-20] MEDS: Dextrose 5 % 1,000 ML 50 ML IVCONT (12:12)
[2020-06-20 12:26] LABS: Glucose, Whole Blood 99 mg/dL (60-115)
[2020-06-20 12:26] LABS: Glucose, Whole Blood 41 mg/dL (60-115)
--- NOTE | 2020-06-20 12:44 | P.PNNP_ITS ---
Subjective Subjective Interval history: Stabilized overnight Remains DNR/DNI no further escalation However hemodynamically stable not on pressors No further bleeding Off paralytics Na remains elevated Physical Exam Vital Signs: Vital Signs: Last Vital Signs Temp 99.5 F 06/20/20 12:00 Pulse 109 H 06/20/20 12:00 Resp 30 H 06/20/20 12:00 BP 108/45 L 06/20/20 12:00 Pulse Ox 88 L 06/20/20 12:00 Body Mass Index 31.8 General: Const: General: cooperative, no acute distress, acute distress (Resp ) and other ( sedated on the vent, anasarca) Nutritional Appearance: average body habitus Orientation/consciousness: patient oriented x3 HENMT: Head: Yes normal to inspection Ears: hearing grossly normal bilaterally Eyes: General: appearance normal, both eyes and all related structures Visual Wilson: normal visual wilson by confrontation Sclerae: sclerae normal Pupils: Equal, round and reactive pupils present EOM: EOMs intact bilaterally Neck: Neck: Yes normal visual inspection, Yes no lymphadenopathy, Yes trachea midline, Yes supple, No positive Brudzinski's sign, No positive Kernig's sign and No tender Thyroid: Thyroid normal Chest: Chest palpation & inspection: normal inspection of the chest Resp: Other: vented Effort & Inspection: normal respiratory effort, able to speak in complete sentences, abnormal respiratory pattern, audible wheezes and no respiratory distress Auscultation: crackles bilateral and diffuse, rhonchi and wheezes Cardio: Jugular venous distension: no JVD Rate: regular rate and tachycardic Rhythm: regular rhythm Heart sounds: no gallops, no murmurs and no rubs GI: Inspection: Yes normal to inspection Palpation (GI): Soft to palpation, nontender and Other GI palpation findings present ( Nontender) Percussion: Y es normal to percussion Auscultation: normal bowel sounds : General: Yes no CVA tenderness Back/Spine/Pelvis: Back: no CVA tenderness Skin: General skin exam: no rashes or lesions noted Neuro: General: patient oriented x3 Cranial nerves: Yes Equal, round and reactive pupils present Cognition (Neuro): normal cognition Extrem: General: Yes normal to inspection, Yes no pedal edema, No clubbing, No cyanosis, Yes edema ( 1+ bilateral) and Yes other ( left upper extremity cool and swollen) Assessment & Plan Assessment and plan (1) Hypernatremia: Problem details: In the setting of insensible losses of water likely from respiratory source Status: Acute Assessment and Plan: - Discussed with MICU to increase D5/W to 100cc/hr from 50cc/hr, to better cover his FW deficit. (2) Hyperkalemia: Problem details: Likely due to digested blood products from UGIB Status: Acute Assessment and Plan: Kayexalate to help bind gut potassium (3) Acute renal failure: Problem details: Likely pre-renal azotemia or ATN in the setting of COVID PNA and UGIB. Status: Acute Assessment and Plan: - hemodynamic support - Transfuse PRN - Tube feeds to help with volume support - BUN rise likely due to digestd blood products, not uremia. Time Spent With Patient Time: Total time spent is greater than 50% in coordination of care (as documented) at patient's floor/unit and/or counseling patient: Procedures Abscess I/D Date of Service: 06/20/20
[2020-06-20] MEDS: Cisatracurium Besylate 20 MG/10 ML VIAL 10 MG IVPUSH (14:30)
[2020-06-20] MEDS: fentaNYL citrate/PF 100 MCG/2 ML VIAL IVPUSH (14:50)
--- NOTE | 2020-06-20 14:51 | PM.CCN ---
Critical Care Event Note Summary Code activated: No Narrative: Patient with persistent refractory hypoxemia and hypercapnia despite maximal ventilatory support. Overall extremely poor prognosis discussed with the HCP and decision reached to change code status to comfort measures only. Critical Care Time (minutes): 0
--- NOTE | 2020-06-20 15:00 | PC.NURSE ---
this witer spoke with daughters honey and scarlet, with rn and rt present . Family was made aware of pt decilne. ie need for 100% fio2 frequent suctioning use of paralytics and bagging pt in attempts to raise o2 saturations. family requested pt be allowed comfort. again this nurse explained procedures staff were doing. both daughters albeit tearfully requested their father be removed from the vent and allowed to pass away. this request was verified by nurse kurtz.
--- NOTE | 2020-06-20 15:41 | PC.NURSE ---
O2 SAT DOWN LOW 69% ON VENT - THIS RN AND RT AT BEDSIDE - PATIENT BAGGED WITH 100% AMBU, FREQUENT SUCTIONING, REPOSITIONED - O2 SAT NOT IMPROVING. NOTIFIED - NIMBEX 10MG IVP ORDERED AND ADMINISTERED WITHOUT EFFECT - [facility] [facility] NOTIFIED OF PATIENTS DECLINE - DECISION WAS MADE BY HCP FOR DEPUTY GRAND JURY/TERMINAL EXTUBATION - VERIFIED WITH TRISHA Ruggiero RN VIA PHONE. NOTIFIED. FENTANYL 100MCG ORDERED AND ADMINISTERED PRIOR TO EXTUBATION - PATIENT EXTUBATED AT 1455 - PATIENT ASYSTOLE ON MONITOR AT 1506 - PATIENT PRONOUNCED BY DR BISWAS - [facility] [facility] [facility] NOTIFIED.
--- NOTE | 2020-06-20 19:54 | P.DN_ITS ---
Discharge Sum: Prov Provider Primary care physician: Unknown Physician Consults: 06/05/20 11:36 Consult to Infectious Diseases Routine Consulting Provider: Alysha Robles Reason for consultation: Severe covid Has provider been notified: Yes 06/06/20 14:23 Consult to Critical Care Routine Consulting Provider: Ute Delgado Reason for consultation: covid Has provider been notified: Yes 06/08/20 10:56 Consult to Nephrology Routine Consulting Provider: Sukhjinder Hyatt Reason for consultation: COVID w DEE Has provider been notified: Yes Discharge Sum: Diag Contributing Factors (1) Hypernatremia: (2) Hyperkalemia: (3) Acute renal failure: (4) Acute respiratory distress syndrome (ARDS) due to COVID-19 virus: (5) Respiratory failure, unspecified with hypoxia: Discharge Sum: Summary Date and Time Date of admission: 06/04/20 20:02 Date of : 06/20/20 Time of : 15:06 Summary Details: 74-year-old gentleman with underlying history of COPD and hypertension admitted on 06/05/2020 with hypoxic respiratory failure secondary to COVID-19. Hospital course complicated by progressive hypoxemia requiring intubation and v entilatory support starting on 06/07/2020, brief bradycardic arrest on 06/19/2020 with ROSC after 2 rounds of CPR, UGIB (presumably stress gastritis from glucocrticoids and DVT prophylaxis). Overal very poor prognosis and essentially no chance for meaningful recovery dicussed with the family and decision has been reached to change goals of care to palliation and code status to comfort measures only. Patient has been terminally extubated on 06/20/2020 and passed peacefully at 15:06. Additional Data Confirmation of as documented by pronouncing clinician: no pulse, no respirations, no heart sounds and pupils fixed and dilated Family: contacted Attending/PCP notified?: Yes Attending physician: Navin Arambula MD
== END 2020-06-20 15:06 | disposition expired | DRG 870 ==
LOC: HO.ED 19:52 → HO.IMC 20:54 → HO.ICU 06-07 07:49
PROVIDERS: Internal Medicine; Internal Medicine Pulmonary Disease; Nurse Practitioner Primary Care; Physician Assistant; Physician Assistant Medical; Admitting Provider Anesthesiology; Emergency Provider Internal Medicine; Visit Provider Internal Medicine Nephrology
DX: A41.89 Other specified sepsis (principal); U07.1 COVID-19; J12.89 Other viral pneumonia; J80 Acute respiratory distress syndrome; J44.1 Chronic obstructive pulmonary disease with (acute) exacerbation; E87.2 Acidosis; N17.9 Acute kidney failure, unspecified; K92.2 Gastrointestinal hemorrhage, unspecified; E87.5 Hyperkalemia; I10 Essential (primary) hypertension; R73.9 Hyperglycemia, unspecified; R00.1 Bradycardia, unspecified; Z87.891 Personal history of nicotine dependence; Z79.51 Long term (current) use of inhaled steroids; Z79.899 Other long term (current) drug therapy; Z66 Do not resuscitate
CPT/HCPCS: 36415; 36600; 70360; 71045; 71275; 80048; 80053; 80076; 81003; 82040; 82310; 82728; 82803; 82947; 83605; 83615; 83735; 83880; 83935; 84100; 84132; 84133; 84145; 84484; 85007; 85025; 85027; 85060; 85379; 85610; 85730; 86140; 86769; 86850; 86900; 86901; 86920; 86923; 87040; 87070; 87205; 87640; 87641; 93005; 93971; 94002; 94003; 94640; 94664; 94799; 96365; 96366; 99231; 99232; 99285; 99291; J0171; J0330; J0456; J0461; J0696; J1170; J1200; J1650; J1940; J1956; J2060; J2250; J2354; J2930; J3010; J3411; J3490; J8540; P9016; P9047; Q9967; U0003